=== PATIENT | female | born 1940 | race Caucasian/White ===

== ENCOUNTER 2016-02-27 20:51 | Inpatient (IN) | payer MEDICARE ==
[~2016-02-27] VITALS: Ht 162.6 cm; Wt 53.4 kg
[~2016-02-27 20:51] MED LIST: 3-IN3MIS; ALPR.25 PO; ASPI81CH CHEW; ATOR20TA15 PO; CARV6.252 PO; COUM1TAB PO; DONE10TA7 PO; LEVEMIR SQ; PAXI10TA2 PO; SENN1TAB PO; SITA1TAB2 PO; WALKER ROLLING; WHEEMIS3 XX
[2016-02-27 20:55] VITALS: BP 116/76; PULSE 122; RESP 18; TEMP 97.9; O2SAT 99
[2016-02-27 21:16] VITALS: BP 110/72; PULSE 115; RESP 21; O2SAT 98
[2016-02-27] MEDS ORDERED: SODIUM CHLORIDE 0.9% FLUSH 5 ML FLUSH IVF PRN (21:45)
--- NOTE | 2016-02-27 21:59 | RADRPT ---
EXAM DATE/TIME: 02/27/2016 21:41 [place] COMPARISON: No previous studies available for comparison. INDICATIONS : Short of breath, chest pain MEDICAL HISTORY : None. SURGICAL HISTORY : Right clavicle hardware placement ENCOUNTER: Initial ACUITY: 2 days PAIN SCORE: 3/10 LOCATION: Bilateral chest FINDINGS: Mild interstitial prominence. Tiny left basal effusion. No dense or confluent consolidation. No pneum othorax. There is mild cardiomegaly. CONCLUSION: Mild failure. Ferny Salazar MD on February 27, 2016 at 21:57 Board Certified Radiologist. This report was verified electronically.
[2016-02-27 22:05] LABS: AUTOMATED NEUTROPHIL # 4.4 TH/MM3 (1.8-7.7); BASOPHIL # 0.1 TH/MM3 (0-0.2); BASOPHIL % 1.5 % (0.0-2.0); EOSINOPHIL # 0.1 TH/MM3 (0-0.4); EOSINOPHIL % 1.9 % (0.0-4.0); HEMATOCRIT 23.9 % (35.0-46.0); LYMPH % 24.1 % (9.0-44.0); LYMPHOCYTE # 1.7 TH/MM3 (1.0-4.8); MEAN CELL VOLUME 73.2 FL (80.0-100.0); MEAN CORPUSCULAR HEMOGLOBIN 22.6 PG (27.0-34.0); MEAN CORPUSCULAR HGB CONC 30.8 % (32.0-36.0); MONO % 10.8 % (0.0-8.0); NEUT % 61.7 % (16.0-70.0); PLATELET COUNT 274 TH/MM3 (150-450); RED BLOOD COUNT 3.26 MIL/MM3 (4.00-5.30); RED CELL DISTRIBUTION WIDTH 18.9 % (11.6-17.2); WHITE BLOOD COUNT 7.2 TH/MM3 (4.0-11.0)
[2016-02-27 22:16] LABS: APTT (PATIENT) 27.3 SEC (24.3-30.1); INTERNATIONAL NORMALIZED RATIO 1.6 RATIO; PROTHROMBIN TIME - PATIENT 18.1 SEC (9.8-11.6)
[2016-02-27 22:27] LABS: ANION GAP 8 MEQ/L (5-15); AST (GOT) 34 U/L (15-37); BICARBONATE 23.6 MEQ/L (21.0-32.0); BLOOD UREA NITROGEN 34 MG/DL (7-18); CHLORIDE 103 MEQ/L (98-107); GLOMERULAR FILTRATION RATE 35 ML/MIN (>89); MAGNESIUM 2.3 MG/DL (1.5-2.5); POTASSIUM 4.3 MEQ/L (3.5-5.1); SODIUM (NA) 135 MEQ/L (136-145)
[2016-02-27 22:29] LABS: HEMO FLAGS AUTO DIFF
[2016-02-27 22:32] LABS: ALKALINE PHOSPHATASE 192 U/L (45-117); ALT (GPT) 39 U/L (10-53); TOTAL BILIRUBIN ADULT 0.4 MG/DL (0.2-1.0)
[2016-02-27 22:37] LABS: CREATINE KINASE 57 U/L (26-192)
[2016-02-27 22:43] LABS: ACANTHOCYTES OCC (NORMAL); BANDS 1 % (0-6); CORRECTED NUCLEATED RBC 2 /100 WBC (0-0); EOSINOPHILS 2 % (0-4); KERATOCYTES OCC (NORMAL); NEUTROPHIL # MANUAL DIFF 4.8 TH/MM3 (1.8-7.7); OVALOCYTES 1+ (NORMAL); PLATELET ESTIMATE SMEAR NORMAL (NORMAL); PLATELET MORPHOLOGY NORMAL (NORMAL); POLYS (SEG NEUTROPHILS) 66 % (16-70); SCAN/DIFF FINAL DIFF MANUAL; WBC DIFF SAMPLE 100
[2016-02-27 22:44] LABS: POLYCHROMASIA 2.4 % (0.0-1.9)
[2016-02-27] MEDS ORDERED: CARV3.125 PO (22:58)
[2016-02-27] MEDS ORDERED: GLIM2TAB PO (22:58)
[2016-02-27] MEDS ORDERED: NAME5TAB2 PO (22:58)
[2016-02-27] MEDS ORDERED: FUROSEMIDE 20 MG/2 ML VIAL IV PUSH ONE (23:00)
[2016-02-27] MEDS ORDERED: SODIUM CHLOR 0.9% 250 ML INJ 250 ML IV ONE (23:00)
--- NOTE | 2016-02-27 23:01 | PD ---
HPI Chief Complaint: Cardiac Complaint Time Seen by Provider: 21:00 Travel History International Travel<30 days: No Contact w/Intl Traveler<30days: No Traveled to known affect area: No History of Present Illness HPI Patient is 75 years old. She is a history of atrial fibrillation. She has had CHF in the past. She was taken off Lasix about 2 months prior following a stroke. 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 Additionally she has shortness of breath increasing over the last couple weeks. Shortness of breath at rest is noted now. There has been no cough or fever. Orthopnea is reported. Most of the history is provided by the patient's daughter. Patient follows with Dr. Hernandez of urology. She follows with events administrative assistant at [facility] in [facility]. There has been no blood in the stool of which the patient or the daughter is aware. The doctor the patient to the fire department where a rhythm strip was printed out demonstrating A. fib with RVR at a rate of 150. Evidently the patient typically has a heart rate of about 110-120 at baseline. The patient was then brought to the ER for evaluation. Evidently she is scheduled for a cardiac catheterization within the next few days to be perofmed by Dr Casillas. [facility] Past Medical History Hx Anticoagulant Therapy: Yes Arthritis: No Asthma: No Atrial Fibrillation: Yes Autoimmune Disease: No Anxiety: Yes Depression: No Heart Rhythm Problems: Yes (atrial fibrillation for past couple years) Cancer: No Cardiovascular Problems: Yes (AFIB RVR) High Cholesterol: Yes Chemotherapy: No Chest Pain: No Congestive Heart Failure: Yes COPD: No Diabetes: Yes Endocrine: No GERD: Yes Genitourinary: No Hiatal Hernia: No Immune Disorder: No Kidney Stones: No Musculoskeletal: Yes (fractured pelvis 2014) Neurologic: Yes (aneurysm) Reproductive: No Respiratory: Yes (CHF) Migraines: No Radiation Therapy: No Renal Failure: No Seizures: No Sickle Cell Disease: No Sleep Apnea: No Thyroid Disease: No Ulcer: No : 5 Para: 3 Past Surgical History Abdominal Surgery: No AICD: No Arteriovenous Shunt: No Cardiac Surgery: Yes (CEA, RLE FEMPOP) Ear Surgery: No Endocrine Surgery: No Eye Surgery: Yes (cataracts) Genitourinary Surgery: Yes (renal stent) Gynecologic Surgery: No Insulin Pump: No Joint Replacement: No Neurologic Surgery: Yes (aneurysm repair) Oral Surgery: No Pacemaker: No Thoracic Surgery: No Other Surgery: Yes (fem pop bypass ) Social History Alcohol Use: No (unable to assess) Tobacco Use: No Substance Use: No Allergies-Medications (Allergen,Severity, Reaction): Coded Allergies: Apresoline (Verified Allergy, Mild, itching, 02/27/16) Demerol (Verified Allergy, Unknown, unknown, 02/27/16) Phenergan (Verified Allergy, Unknown, unknown, 02/27/16) Reported Meds & Prescriptions Reported Meds & Active Scripts Active Coumadin (Warfarin) 1 Mg Tab 2 Mg PO DAILY Carvedilol 6.25 Mg Tab 6.25 Mg PO BID Atorvastatin (Atorvastatin Calcium) 20 Mg Tab 20 Mg PO HS Aspirin 81 Mg Chew 81 Mg CHEW DAILY Xanax (Alprazolam) 0.25 Mg Tab 0.25 Mg PO Q8HR PRN Donepezil 10 Mg Tab 10 Mg PO HS Paxil (Paroxetine HCl) 10 Mg Tab 10 Mg PO DAILY Reported Glimepiride 2 Mg Tab 2 Mg PO DAILY Take with breakfast or first main meal Namenda (Memantine) 5 Mg Tab 5 Mg PO BID Coreg (Carvedilol) 3.125 Mg Tab 3.125 Mg PO BID Review of Systems Except as stated in HPI: all other systems reviewed are Neg Physical Exam Narrative GENERAL: 75 yo F, pleasant, mild dementia SKIN: Warm and dry. HEAD: Atraumatic. Normocephalic. EYES: Pupils equal and round. No scleral icterus. No injection or drainage. ENT: No nasal bleeding or discharge. Mucous membranes pink and moist. NECK: Trachea midline. No JVD. CARDIOVASCULAR: Irregular. Tachycardia. RESPIRATORY: Mild tachypnea at rest. Course breath sounds bilaterally. GASTROINTESTINAL: Abdomen soft, non-tender, nondistended. Hepatic and splenic margins not palpable. MUSCULOSKELETAL: Extremities without clubbing, cyanosis, or edema. No obvious deformities. NEUROLOGICAL: Awake and alert. Pleasantly demented. No focal cranial nerve deficits or motor weakness is observed. RECTAL: Rectal vault empty. Guaiac positive mucus. External hemorrhoids present. No fissure or tenderness or mass on exam. PSYCHIATRIC: Appropriate mood and affect; insight and judgment normal. Data Data Last Documented VS Vital Signs Date Time Temp Pulse Resp B/P Pulse Ox O2 Delivery O2 Flow Rate FiO2 02/27/16 21:16 115 21 110/72 98 Nasal Cannula 2 02/27/16 20:55 97.9 Orders Electrocardiogram (02/27/16 ) B-Type Natriuretic Peptide (02/27/16 21:33) Ckmb (Isoenzyme) Profile (02/27/16 21:33) Complete Blood Count With Diff (02/27/16 21:33) Comprehensive Metabolic Panel (02/27/16 21:33) Magnesium (Mg) (02/27/16 21:33) Prothrombin Time / Inr (Pt) (02/27/16 21:33) Act Partial Throm Time (Ptt) (02/27/16 21:33) Troponin I (02/27/16 21:33) Lipase (02/27/16 21:33) Chest, Single Ap (02/27/16 21:33) Ecg Monitoring (02/27/16 21:33) Iv Access Insert/Monitor (02/27/16 21:33) Oximetry (02/27/16 21:33) Oxygen Administration (02/27/16 21:33) Sodium Chloride 0.9% Flush (Ns Flush) (02/27/16 21:45) Type And Screen (02/27/16 22:56) Red Blood Cells (Rbc) (02/27/16 22:56) Blood Product Administration .UPON TRANSFUSION (02/27/16 22:56) Sodium Chlor 0.9% 250 Ml Inj (Ns 250 Ml (02/27/16 23:00) Furosemide Inj (Lasix Inj) (02/27/16 23:00) Admit Order (Ed Use Only) (02/27/16 23:01) Labs Laboratory Tests Test 02/27/16 21:45 White Blood Count 7.2 TH/MM3 Red Blood Count 3.26 MIL/MM3 Hemoglobin 7.4 GM/DL Hematocrit 23.9 % Mean Corpuscular Volume 73.2 FL Mean Corpuscular Hemoglobin 22.6 PG Mean Corpuscular Hemoglobin 30.8 % Concent Red Cell Distribution Width 18.9 % Platelet Count 274 TH/MM3 Mean Platelet Volume 9.9 FL Neutrophils (%) (Auto) 61.7 % Lymphocytes (%) (Auto) 24.1 % Monocytes (%) (Auto) 10.8 % Eosinophils (%) (Auto) 1.9 % Basophils (%) (Auto) 1.5 % Neutrophils # (Auto) 4.4 TH/MM3 Lymphocytes # (Auto) 1.7 TH/MM3 Monocytes # (Auto) 0.8 TH/MM3 Eosinophils # (Auto) 0.1 TH/MM3 Basophils # (Auto) 0.1 TH/MM3 CBC Comment AUTO DIFF Differential Total Cells 100 Counted Neutrophils % (Manual) 66 % Band Neutrophils % 1 % Lymphocytes % 23 % Monocytes % 8 % Eosinophils % 2 % Neutrophils # (Manual) 4.8 TH/MM3 Nucleated Red Blood Cells 2 /100 WBC Differential Comment FINAL DIFF MANUAL Platelet Estimate NORMAL Platelet Morphology Comment NORMAL Polychromasia 2.4 % Ovalocytes 1+ Acanthocytes OCC Keratocytes OCC Reticulocyte Count 2.7 % Absolute Reticulocyte Count 92.8 MIL/L Prothrombin Time 18.1 SEC Prothromb Time International 1.6 RATIO Ratio Activated Partial 27.3 SEC Thromboplast Time Sodium Level 135 MEQ/L Potassium Level 4.3 MEQ/L Chloride Level 103 MEQ/L Carbon Dioxide Level 23.6 MEQ/L Anion Gap 8 MEQ/L Blood Urea Nitrogen 34 MG/DL Creatinine 1.47 MG/DL Estimat Glomerular Filtration 35 ML/MIN Rate Random Glucose 142 MG/DL Calcium Level 8.0 MG/DL Magnesium Level 2.3 MG/DL Total Bilirubin 0.4 MG/DL Aspartate Amino Transf 34 U/L (AST/SGOT) Alanine Aminotransferase 39 U/L (ALT/SGPT) Alkaline Phosphatase 192 U/L Total Creatine Kinase 57 U/L Troponin I 0.02 NG/ML B-Type Natriuretic Peptide 709 PG/ML Total Protein 6.8 GM/DL Albumin 3.5 GM/DL Lipase 153 U/L [facility] Medical Decision Making Medical Screen Exam Complete: Yes Emergency Medical Condition: Yes Medical Record Reviewed: Yes Differential Diagnosis CHF, pneumonia, anemia, renal failure, electrolyte imbalance, UTI, polypharmacy Narrative Course CBC & BMP Diagram 02/27/16 21:45 LFTs are essentially normal The BNP is 709 Lipase 153 Troponin is 0.02 A. fib with a rate of approximately 120 is observed Last 24 hours Impressions Chest X-Ray 02/27/162132 Signed Impressions: Service Date/Time: January 21:41 - CONCLUSION: Mild failure. Ferny Salazar MD Patient will be admitted for transfusion of 1 unit red blood cells. Lasix administered. Patient has a history of chronic hematuria as well as hereto for unknown guaiac positive stool. Case d/w Lissette Erickson for [facility] Internal Pos. & Neg. Controls: Passed Fecal Specimen Occult Blood: Positive Diagnosis Primary Impression: Acute blood loss anemia Additional Impressions: CHF (congestive heart failure) Qualified Code: I50.9 - Acute on chronic congestive heart failure, unspecified congestive heart failure type Dyspnea Qualified Code: R06.00 - Dyspnea, unspecified type Hematuria Guaiac + stool Admitting Information Admitting Physician Requests: Fidel Bernstein MD Feb 27, 2016 23:01
[2016-02-27] MEDS ORDERED: NALOXONE HCL 0.4 MG/ML AMP IV PRN (23:15)
[2016-02-27] MEDS ORDERED: ONDANSETRON HCL 4 MG/2 ML VIAL IVP PRN (23:15)
[2016-02-27] MEDS ORDERED: ACETAMINOPHEN 325 MG TAB PO PRN (23:15)
[2016-02-27] MEDS ORDERED: SODIUM CHLORIDE 0.9% FLUSH 5 ML FLUSH FLUSH PRN (23:15)
[2016-02-27 23:40] VITALS: BP 117/84; PULSE 97; RESP 22; O2SAT 100
[2016-02-27 23:50] VITALS: O2SAT 100
[2016-02-27 23:51] LABS: RETIC % 2.7 % (0.4-3.0)
[2016-02-27 23:52] LABS: REVIEW FLAG FINAL
[2016-02-28] VITALS (9 sets, daily range): BP systolic 111–133; BP diastolic 65–76; PULSE 64–108; RESP 16–22; TEMP 95.9–97.2; O2SAT 99–100
[2016-02-28] MEDS: PANTOPRAZOLE SODIUM 40 MG VIAL IV PUSH SCH ×3 (04:06→23:00)
[2016-02-28] MEDS: SODIUM CHLORIDE 0.9% FLUSH 5 ML FLUSH FLUSH SCH ×2 (07:47→20:36)
[2016-02-28] MEDS: PARoxetine HCL 20 MG TAB PO SCH (07:47)
[2016-02-28] MEDS: CARVEDILOL 3.125 MG TAB PO SCH ×2 (07:47→20:36)
[2016-02-28 09:19] LABS: AUTOMATED NEUTROPHIL # 4.8 TH/MM3 (1.8-7.7); BASOPHIL # 0.1 TH/MM3 (0-0.2); BASOPHIL % 1.6 % (0.0-2.0); EOSINOPHIL # 0.1 TH/MM3 (0-0.4); HEMATOCRIT 35.4 % (35.0-46.0); LYMPH % 20.9 % (9.0-44.0); LYMPHOCYTE # 1.5 TH/MM3 (1.0-4.8); MEAN CELL VOLUME 76.1 FL (80.0-100.0); MEAN CORPUSCULAR HEMOGLOBIN 23.6 PG (27.0-34.0); MONO % 9.5 % (0.0-8.0); PLATELET COUNT 217 TH/MM3 (150-450); RED BLOOD COUNT 4.65 MIL/MM3 (4.00-5.30); RED CELL DISTRIBUTION WIDTH 19.3 % (11.6-17.2); WHITE BLOOD COUNT 7.3 TH/MM3 (4.0-11.0)
[2016-02-28 09:30] LABS: INTERNATIONAL NORMALIZED RATIO 1.5 RATIO; PROTHROMBIN TIME - PATIENT 16.9 SEC (9.8-11.6)
[2016-02-28 09:49] LABS: ANION GAP 12 MEQ/L (5-15); BICARBONATE 21.5 MEQ/L (21.0-32.0); BLOOD UREA NITROGEN 30 MG/DL (7-18); CHLORIDE 104 MEQ/L (98-107); FERRITIN 6 NG/ML (8-252); GLOMERULAR FILTRATION RATE 37 ML/MIN (>89); POTASSIUM 4.2 MEQ/L (3.5-5.1); SODIUM (NA) 137 MEQ/L (136-145); TRANSFERRIN IRON PROFILE 378 MG/DL (200-360)
[2016-02-28 10:06] LABS: HEMO FLAGS AUTO DIFF
[2016-02-28 10:08] LABS: PLATELET ESTIMATE SMEAR NORMAL (NORMAL); PLATELET MORPHOLOGY ENLARGED (NORMAL); SCAN/DIFF AUTO DIFF CONFIRMED
[2016-02-28] MEDS ORDERED: GLUCAGON 1 MG/ML VIAL OTHER PRN (11:00)
[2016-02-28] MEDS: INSULIN NovoLIN REGULAR SUPPLEMENTAL SCALE SQ SCH ×3 (11:00→20:42)
[2016-02-28] MEDS ORDERED: DEXTROSE 50% IN WATER 50 ML VIAL(D50) IV PUSH PRN (11:00)
--- NOTE | 2016-02-28 11:27 | MH ---
cc: WILMA VALVERDE DATE OF ADMISSION 02/27/2016 PRESENTING COMPLAINTS Atrial fibrillation with rapid ventricular rate and shortness of breath. HISTORY OF PRESENT ILLNESS The patient is a very pleasant 75-year-old female with significant past medical history of CVA in 2007 without deficit, brain aneurysm in 2010 status post coiling, hypertension, hyperlipidemia, diabetes type 2, peripheral vascular disease, status post surgery, paroxysmal atrial fibrillation, depression, hyperlipidemia, renal stents. The patient was admitted recently in November of 2015 at [facility] for recurrent stroke and was found to have an any acute ischemic right MCA stroke. Following this, the patient had significant cognitive difficulties and she was discharged to [facility]. About two weeks ago, the patient started complaining of shortness of breath, however, the daughter usually thought it was because the patient wants to be out of her HALFWAY. However, two days ago, the patient seemed to have significant shortness of breath. The daughter checked her heart rate yesterday and found it to be in the 140's. She took her to a fire station and verified the heart rate to be more than 140 and brought her to the emergency room. In the emergency room, her heart rate was found to be 140. She was admitted for further workup. Also found in the emergency room was a hemoglobin of 7.2 with stool hemoccult positive stool test. The patient was admitted for further workup. At this point, the patient is complaining of shortness of breath and otherwise denies any significant complaint. She admits to having poor memory and not able to recall information. Most of the history is obtained from the patient's Jose Alberto Raza who also works at [facility]. PAST MEDICAL HISTORY Significant for: 1. Hypertension 2. Hyperlipidemia 3. Atrial fibrillation 4. Anxiety 5. Heart rhythm problems 6. Multiple strokes in the past 7. Peripheral vascular disease 8. Hyperlipidemia 9. Questionable history of congestive heart failure. Echocardiogram in November of 2012 showed an EF of 55-60%. 10. History of diabetes. 11. History gastroesophageal reflux disease. 12. History of brain aneurysm status post clipping. PAST SURGICAL HISTORY Significant for: 1. Carotid endarterectomy 2. Right lower extremity fem-pop surgery 3. Cataract surgery in both eyes 4. Renal stent 5. Aneurysm repair in neurology. FAMILY HISTORY AND SOCIAL HISTORY The patient as above used to be independent until November however, after experiencing stroke in November, she was admitted to an independent living facility at [facility]. She has a daughter in the area works in the medical field. She also has most of her family in [place] and they are all in medical gr. PHYSICAL EXAM VITAL SIGNS: Temperature of 95.9, pulse 91, respiratory rate 20 systolic blood pressure was 113/68 and she is sating 100% on three liters nasal cannula. GENERAL: She is awake, alert, and oriented to person and place laying in bed. She does not appear to be in any acute distress but does appear very frail. HEAD, EYES, EARS, NOSE, AND THROAT: The patient has trouble speaking, kind of has some hesitancy in speaking. Pupils are round and reactive. Extraocular movement intact. No conjunctival injection was noted. The patient does appear pale. Oral mucosa is moist. NECK: Supple and nontender. No JVD. CARDIOVASCULAR: Cardiovascular examination S1-S2 irregularly irregular without gallop, murmurs or rubs appreciated. RESPIRATORY: Bilateral air entry clear to auscultation. No rales, wheezes or rhonchi were appreciated. GI: Positive bowel sounds, soft, nontender. EXTREMITIES: Have no cyanosis, clubbing or edema. PERTINENT LAB INVESTIGATIONS Show a WBC count of 7.3, hemoglobin 11.20, now on admission was 7.4, hematocrit 35.4, platelet count of 117. Chemistries show sodium 137, potassium 4.2, chloride 104, bicarb 31.5, BUN 30, creatinine of 1.40, glucose 136, iron count is low at 35, TIBC 529, ferritin is low at 6, AST 34, ALT 39, alkaline phosphatase 192, total creatinine kinase 57. Troponin I is 0.02. BNP 702, total protein 6.8, albumen 3.7, lipase 153. Vitamin B12 levels are pending. INR of 1.6 on admission now 2.5. RADIOLOGICAL INVESTIGATIONS Included a chest x-ray which showed evidence of mild pulmonary edema. DIAGNOSTIC IMPRESSION 1. Shortness of breath likely secondary to a combination of atrial fibrillation with rapid ventricular rate and anemia. 2. Atrial fibrillation with rapid ventricular rate. 3. Anemia possibly rule out GI bleed. 4. History of recent strokes with severe cognitive deficits and memory loss. 5. History of hypertension and hyperlipidemia. 6. History of diabetes. PLAN 1. The patient is admitted to the floor. She was prescribed Coumadin since her stroke, however, at this point, it is discontinued. The patient is getting clear liquid diet. She will be seen by GI. She is on IV PPI. We will check H&H q6h as needed/transfusions to keep hemoglobin more than 8. 2. I had discussed with the patient's daughter in detail. We will hold Coumadin and undergo a GI workup. Iron studies show low iron and increased TIBC probably will need iron replacement therapy. 3. Mild pulmonary edema on admission. She will receive Lasix 20 mg IV in the emergency room. Now clear to auscultation. We will hold of any further Lasix. 4. The patient had a recent echocardiogram at office less than two weeks. We will try to get a report from there. 5. Continue with Accu-Chek's and insulin sliding scale. 6. DVT prophylaxis 7. GI prophylaxis 8. Resume home medications as appropriate. 9. The plan discussed in detail with the patient and her daughter. MD SONIA Kahn/JUANJOSE /10:43 AM /11:03 AM
--- NOTE | 2016-02-28 11:41 | PD.CONS ---
HPI History of Present Illness This is a 75 year old who was brought to the ER for evaluation of shortness of breath and found to have atrial fibrillation with RVR. She was also noted to have anemia with hemoccult positive stool and therefore admitted for further evaluation and treatment. The patient has not noticed any obvious GI bleeding, although she reports that she has been having intermittent vaginal bleeding for the past 2 years. There are no aggravating or alleviating factors. She states she wears briefs and notices when she takes them off that there is a ring of vaginal blood at times. She does not have any abdominal pain with this. She states she recently mentioned this to her PCP and that he was going to look into it, but she has not had any workup or been seen by [facility] yet. She denies any hx of PUD or GI Bleeding. She denies any nausea, vomiting, heartburn, reflux, weight loss, constipation, diarrhea, melena, or hematochezia. She takes an occasional ibuprofen for generalized aches/pains, but does not take this on a regular basis. She does not drink ETOH. She states she last had a colonoscopy many years ago and she cannot recall when this last was. She denies any known family hx of esophageal, gastric or colorectal cancer. ([place]) PFSH Past Medical History CVA Bilateral renal artery stenosis, s/p stenting left side Type II DM HTN Hyperlipidemia Hyperlipidemia Atrial fibrillation Anxiety Peripheral vascular disease ? CHF GERD Hx brain aneurysm Intermittent vaginal bleeding x 2 years Past Surgical History Stenting for left renal artery stenosis Bilateral carotid endarterectomies Brain aneurysm clipping Cataract surgery ([place]) Coded Allergies: Apresoline (Verified Allergy, Mild, itching, 02/27/16) Demerol (Verified Allergy, Unknown, unknown, 02/27/16) Phenergan (Verified Allergy, Unknown, unknown, 02/27/16) Medications Allergies Coded Allergies Type Severity Reaction Last Updated Verified Apresoline Allergy Mild itching 02/27/16 Yes Demerol Allergy Unknown unknown 02/27/16 Yes Phenergan Allergy Unknown unknown 02/27/16 Yes Active Scripts Medications Dose Route/Sig Days Date Category Dose Instructions Glimepiride 2 Mg Tab 2 Mg PO DAILY 02/27/16 Reported Take with breakfast or first main meal Namenda (Memantine) 5 Mg Tab 5 Mg PO BID 02/27/16 Reported Coreg (Carvedilol) 3.125 Mg Tab 3.125 Mg PO BID 02/27/16 Reported Coumadin (Warfarin) 1 Mg Tab 2 Mg PO DAILY 12/30/15 Rx Carvedilol 6.25 Mg Tab 6.25 Mg PO BID 12/30/15 Rx Atorvastatin (Atorvastatin Calcium) 20 Mg Tab 20 Mg PO HS 12/30/15 Rx Aspirin 81 Mg Chew 81 Mg CHEW DAILY 12/30/15 Rx Xanax (Alprazolam) 0.25 Mg Tab 0.25 Mg PO Q8HR PRN 12/30/15 Rx Donepezil 10 Mg Tab 10 Mg PO HS 12/30/15 Rx Paxil (Paroxetine HCl) 10 Mg Tab 10 Mg PO DAILY 12/30/15 Rx Family History Denies any family hx of gastric, esophageal, or colorectal cancer. Social History No tobacco. No ETOH. ([place]) Review of Systems Constitutional: COMPLAINS OF: Fatigue, DENIES: Fever, Chills, Change in appetite Respiratory: COMPLAINS OF: Shortness of breath, DENIES: Cough Cardiovascular: COMPLAINS OF: Palpitations, DENIES: Chest pain Gastrointestinal: DENIES: Abdominal pain, Black stools, Bloody stools, Constipation, Diarrhea, Nausea, Vomiting, Anorexia, Swelling of Abdomen, Heartburn, Hematemesis Musculoskeletal: COMPLAINS OF: Joint pain Integumentary: DENIES: Abnormal pigmentation Hematologic/lymphatic: COMPLAINS OF: Bruising Neurologic: DENIES: Abnormal gait Psychiatric: DENIES: Confusion ([place]) GI Exam Vitals I&O Vital Signs Date Time Temp Pulse Resp B/P Pulse Ox O2 Delivery O2 Flow Rate FiO2 02/28/16 08:47 91 02/28/16 08:00 95.9 91 20 113/68 100 02/28/16 04:20 96.0 99 16 121/73 99 02/28/16 04:15 96.0 96 16 131/71 100 02/28/16 00:50 97.2 108 22 130/76 99 02/27/16 23:50 100 Nasal Cannula 3.00 02/27/16 23:40 97 22 117/84 100 Nasal Cannula 3 02/27/16 21:16 115 21 110/72 98 Nasal Cannula 2 02/27/16 21:16 122 24 96 Nasal Cannula 3 02/27/16 21:16 98 Nasal Cannula 3 02/27/16 20:55 97.9 122 18 116/76 99 Room Air I/O 02/27/16 02/27/16 02/27/16 02/28/16 02/28/16 02/28/16 07:00 15:00 23:00 07:00 15:00 23:00 Intake Total 447 ml Balance 447 ml Intake Oral 240 ml Packed Cells 207 ml # Voids 6 1 Imaging Last Impressions Chest X-Ray 02/27/163 Signed Impressions: Service Date/Time: January 21:41 - CONCLUSION: Mild failure. Ferny Salazar MD Laboratory Test 02/27/16 02/27/16 02/28/16 21:45 23:20 09:10 White Blood Count 7.2 TH/MM3 7.3 TH/MM3 Red Blood Count 3.26 MIL/MM3 4.65 MIL/MM3 Hemoglobin 7.4 GM/DL 11.0 GM/DL Hematocrit 23.9 % 35.4 % Mean Corpuscular Volume 73.2 FL 76.1 FL Mean Corpuscular Hemoglobin 22.6 PG 23.6 PG Mean Corpuscular Hemoglobin 30.8 % 31.0 % Concent Red Cell Distribution Width 18.9 % 19.3 % Platelet Count 274 TH/MM3 217 TH/MM3 Mean Platelet Volume 9.9 FL 9.8 FL Neutrophils (%) (Auto) 61.7 % 66.0 % Lymphocytes (%) (Auto) 24.1 % 20.9 % Monocytes (%) (Auto) 10.8 % 9.5 % Eosinophils (%) (Auto) 1.9 % 2.0 % Basophils (%) (Auto) 1.5 % 1.6 % Neutrophils # (Auto) 4.4 TH/MM3 4.8 TH/MM3 Lymphocytes # (Auto) 1.7 TH/MM3 1.5 TH/MM3 Monocytes # (Auto) 0.8 TH/MM3 0.7 TH/MM3 Eosinophils # (Auto) 0.1 TH/MM3 0.1 TH/MM3 Basophils # (Auto) 0.1 TH/MM3 0.1 TH/MM3 CBC Comment AUTO DIFF AUTO DIFF Differential Total Cells 100 Counted Neutrophils % (Manual) 66 % Band Neutrophils % 1 % Lymphocytes % 23 % Monocytes % 8 % Eosinophils % 2 % Neutrophils # (Manual) 4.8 TH/MM3 Nucleated Red Blood Cells 2 /100 WBC Differential Comment FINAL DIFF AUTO DIFF MANUAL CONFIRMED Platelet Estimate NORMAL NORMAL Platelet Morphology Comment NORMAL ENLARGED Polychromasia 2.4 % Ovalocytes 1+ Acanthocytes OCC Keratocytes OCC Reticulocyte Count 2.7 % Absolute Reticulocyte Count 92.8 MIL/L Prothrombin Time 18.1 SEC 16.9 SEC Prothromb Time International 1.6 RATIO 1.5 RATIO Ratio Activated Partial 27.3 SEC Thromboplast Time Sodium Level 135 MEQ/L 137 MEQ/L Potassium Level 4.3 MEQ/L 4.2 MEQ/L Chloride Level 103 MEQ/L 104 MEQ/L Carbon Dioxide Level 23.6 MEQ/L 21.5 MEQ/L Anion Gap 8 MEQ/L 12 MEQ/L Blood Urea Nitrogen 34 MG/DL 30 MG/DL Creatinine 1.47 MG/DL 1.40 MG/DL Estimat Glomerular Filtration 35 ML/MIN 37 ML/MIN Rate Random Glucose 142 MG/DL 136 MG/DL Calcium Level 8.0 MG/DL 8.0 MG/DL Magnesium Level 2.3 MG/DL Total Bilirubin 0.4 MG/DL Aspartate Amino Transf 34 U/L (AST/SGOT) Alanine Aminotransferase 39 U/L (ALT/SGPT) Alkaline Phosphatase 192 U/L Total Creatine Kinase 57 U/L Troponin I 0.02 NG/ML B-Type Natriuretic Peptide 709 PG/ML Total Protein 6.8 GM/DL Albumin 3.5 GM/DL Lipase 153 U/L Blood Type O POSITIVE Antibody Screen NEGATIVE Crossmatch Leukocyte-Reduced Red Blood Cells Blood Bank Comment Iron Level 35 MCG/DL Total Iron Binding Capacity 529 MCG/DL Percent Iron Saturation 6.6 % Ferritin 6 NG/ML Physical Examination HEENT: Normocephalic; atraumatic; no jaundice. CHEST: CTA CARDIAC: Irregular. ABDOMEN: Soft, nondistended, nontender; no hepatosplenomegaly; bowel sounds are present in all four quadrants. EXTREMITIES: No clubbing, cyanosis, or edema. SKIN: Normal; no rash; no jaundice. TORPEDOMAN'S MATE: No focal deficits; alert and oriented times three. ([place]) Assessment and Plan Plan ASSESSMENT: - Anemia with hemoccult positive stool. H/H 7.4/23.9 on admission. S/P 2 units of PRBC, now HH 11.0/25.4. Hemoccult (+). Pt denies any GI symptoms or bleeding but does report intermittent vaginal bleeding x 2 years. Of note, she is on Coumadin at home. Her INR is 1.5. This is currently being held in anticipation of GI workup. Will get CT Scan abdomen and pelvis without IV contrast (impaired renal function). Consider [facility] evaluation. Possible EGD/ Colonoscopy next week. - Reported vaginal bleeding. Will get CT scan. ? [facility] evaluation. - Atrial fibrillation with RVR. Rate controlled. Coumadin on hold at this time. - Recent CVA, HTN, Hyperlipidemia, DM per primary PLAN: - Clear liquids - CT Scan abdomen and pelvis without IV contrast - PPI - Monitor HH - Transfuse as necessary - Consider [facility] evaluation - EGD/Colonoscopy next week. If patient needs anticoagulation prior to procedures, recommend lovenox for now, so that it may be held prior to procedure. - Supportive care - Further recommendations to follow based on results of above - Pt seen and examined by Dr. Tracy and myself and this note is written on his behalf ([place]) Physician Comments Seen and examined, plan as above, continue work up and will need endoscopic evaluation once cleared. Will follow up with you. (Belinda Tracy MD) [place] Feb 28, 2016 11:41 Belinda Tracy MD Feb 28, 2016 13:55
[2016-02-28] MEDS ORDERED: DIATRIZOATE MEGLUM/DIATRIZOATE SOD 9 ML CUP PO ONE (12:45)
--- NOTE | 2016-02-28 13:46 | EKG ---
Date Performed: 02/27/2016 Time Performed: 21:26:40 PTAGE: 75 years EKG: ATRIAL FIBRILLATION WITH RAPID VENTRICULAR RESPONSE ST DEVIATION AND MODERATE T-WAVE ABNORM ALITY, CONSIDER LATERAL ISCHEMIA ABNORMAL ECG Since PREVIOUS TRACING , no significant change noted PREVIOUS TRACIN12/11/2015 03.49 DOCTOR: Cristobal Whitfield Interpretating Date/Time 02/28/2016 13:36:12
--- NOTE | 2016-02-28 17:37 | RADRPT ---
EXAM DATE/TIME: 02/28/2016 17:20 [facility] COMPARISON: CHEST SINGLE AP, February 27, 2016, 21:41. INDICATIONS : Diffuse abdominal pain with vaginal bleeding and anemia. ORAL CONTRAST: Prescribed oral contrast ingested. RADIATION DOSE: 7.21 CTDIvol (mGy) MEDICAL HISTORY : Cerebrovascular disease. SURGICAL HISTORY : None. ENCOUNTER: Initial ACUITY: 2 days PAIN SCALE: 5/10 LOCATION: Diffuse abdomen/pelvis TECHNIQUE: Volumetric scanning of the abdomen and pelvis was performed. Using automated exposure control and adjustment of the mA and/or kV according to patient size, radiation dose was kept as low as reasonably achievable to obtain optimal diagnostic quality images. FINDINGS: LOWER LUNGS: The visualized lower lungs are clear. Moderate to large posterior layering pleural e ffusions LIVER: Homogeneous density without lesion. There is no dilation of the biliary tree. No calcifi ed gallstones. Gallbladder seen as a luminal structure without wall thickening or stones. SPLEEN: Normal size without lesion. PANCREAS: Within normal limits. KIDNEYS: Normal in size and shape. There is no mass or stone.. There is hydronephrosis and hydro ureter on the left to the UV junction in the bladder reveals inhomogeneous soft tissue density adjace nt to the wall and mixed with urine vascular bladder tumor not excludable. ADRENAL GLANDS: Within normal limits. VASCULAR: There is no aortic aneurysm. Left renal artery stent in place as well as right femoral artery stent or bypass graft BOWEL/MESENTERY: The stomach, small bowel, and colon demonstrate no acute abnormality. There is no free intraperitoneal air or fluid. The uncomplicated diverticuli of the sigmoid colon ABDOMINAL WALL: Within normal limits. RETROPERITONEUM: There is no lymphadenopathy. BLADDER: No wall thickening or mass. REPRODUCTIVE: Within normal limits. INGUINAL: There is no lymphadenopathy or hernia. MUSCULOSKELETAL: Bilateral spondylolysis L5 with a grade 1 spondylolysis L5 on S1. Degenerative c hanges lumbar spine.. CONCLUSION: Abnormal urinary bladder with soft tissue densities dispersed against the wall which may represent tumor particularly in view that there is left hydroureter and hydronephrosis to the UV junction indicating obstruction. Moderate sized bilateral posterior layering pleural effusio ns. Uncomplicated diverticuli of the sigmoid colon and degenera tive findings the lumbar spine as described above. Chriss Maradiaga MD on February 28, 2016 at 17:29 Board Certified Radiologist. This report was verified electronically.
[2016-02-28] MEDS: ATORVASTATIN 20 MG TAB PO SCH (20:36)
[2016-02-28] MEDS: DONEPEZIL HCL 5 MG TAB PO SCH (20:36)
[2016-02-29] VITALS (13 sets, daily range): BP systolic 113–155; BP diastolic 58–87; PULSE 74–123; RESP 16–20; TEMP 96.5–98; O2SAT 92–99
[2016-02-29] MEDS: INSULIN NovoLIN REGULAR SUPPLEMENTAL SCALE SQ SCH ×4 (05:24→20:10)
[2016-02-29 06:41] LABS: AUTOMATED NEUTROPHIL # 5.6 TH/MM3 (1.8-7.7); BASOPHIL # 0.1 TH/MM3 (0-0.2); BASOPHIL % 0.8 % (0.0-2.0); EOSINOPHIL # 0.2 TH/MM3 (0-0.4); HEMATOCRIT 28.3 % (35.0-46.0); LYMPH % 13.8 % (9.0-44.0); MEAN CELL VOLUME 73.7 FL (80.0-100.0); MEAN CORPUSCULAR HEMOGLOBIN 23.3 PG (27.0-34.0); MEAN CORPUSCULAR HGB CONC 31.7 % (32.0-36.0); NEUT % 74.4 % (16.0-70.0); PLATELET COUNT 230 TH/MM3 (150-450); RED BLOOD COUNT 3.83 MIL/MM3 (4.00-5.30); RED CELL DISTRIBUTION WIDTH 19.7 % (11.6-17.2); WHITE BLOOD COUNT 7.5 TH/MM3 (4.0-11.0)
[2016-02-29 06:53] LABS: HEMO FLAGS AUTO DIFF
[2016-02-29 07:02] LABS: BICARBONATE 24.4 MEQ/L (21.0-32.0); POTASSIUM 3.8 MEQ/L (3.5-5.1)
[2016-02-29 07:18] LABS: PROTHROMBIN TIME - PATIENT 22.2 SEC (9.8-11.6)
[2016-02-29] MEDS: SODIUM CHLORIDE 0.9% FLUSH 5 ML FLUSH FLUSH SCH ×2 (08:55→20:08)
[2016-02-29] MEDS: PARoxetine HCL 20 MG TAB PO SCH (08:55)
[2016-02-29] MEDS: CARVEDILOL 3.125 MG TAB PO SCH (08:55)
[2016-02-29 10:02] LABS: OVALOCYTES 1+ (NORMAL); SCAN/DIFF AUTO DIFF CONFIRMED
--- NOTE | 2016-02-29 10:07 | HHI.GIFU ---
Subjective Remarks no specific symptoms but with further questioning, she does have hematuria and frequency. Objective Vitals I&O Vital Signs Date Time Temp Pulse Resp B/P Pulse Ox O2 Delivery O2 Flow Rate FiO2 02/29/16 07:05 96.6 96 18 155/66 95 02/29/16 04:00 96.5 86 16 113/75 97 02/29/16 00:00 96.6 74 16 123/58 97 02/28/16 20:00 96.9 64 16 133/66 100 02/28/16 18:37 Nasal Cannula 4.00 02/28/16 17:15 Simple Mask 4.00 02/28/16 16:10 Nasal Cannula 4.00 02/28/16 16:00 96.1 80 20 111/73 99 02/28/16 11:41 96.8 86 20 121/65 100 02/28/16 11:36 96.8 86 20 121/65 100 I/O 02/28/16 02/28/16 02/28/16 02/29/16 02/29/16 02/29/16 07:00 15:00 23:00 07:00 15:00 23:00 Intake Total 447 ml 946 ml 240 ml 240 ml Output Total 600 ml Balance 447 ml 346 ml 240 ml 240 ml Intake Oral 240 ml 946 ml 240 ml 240 ml Packed Cells 207 ml Output Urine Total 600 ml # Voids 6 6 2 2 # Bowel Movements 1 0 0 Laboratory Laboratory Tests Test 02/29/16 06:00 White Blood Count 7.5 Red Blood Count 3.83 Hemoglobin 8.9 Hematocrit 28.3 Mean Corpuscular Volume 73.7 Mean Corpuscular Hemoglobin 23.3 Mean Corpuscular Hemoglobin 31.7 Concent Red Cell Distribution Width 19.7 Platelet Count 230 Mean Platelet Volume 9.8 Neutrophils (%) (Auto) 74.4 Lymphocytes (%) (Auto) 13.8 Monocytes (%) (Auto) 9.0 Eosinophils (%) (Auto) 2.0 Basophils (%) (Auto) 0.8 Neutrophils # (Auto) 5.6 Lymphocytes # (Auto) 1.0 Monocytes # (Auto) 0.7 Eosinophils # (Auto) 0.2 Basophils # (Auto) 0.1 CBC Comment AUTO DIFF Prothrombin Time 22.2 Prothromb Time International 2.0 Ratio Sodium Level 140 Potassium Level 3.8 Chloride Level 105 Carbon Dioxide Level 24.4 Anion Gap 11 Blood Urea Nitrogen 21 Creatinine 1.23 Estimat Glomerular Filtration 43 Rate Random Glucose 86 Calcium Level 8.3 Physical Exam HEENT: Pupils round and reactive to light; normocephalic; atraumatic; no jaundice. Throat is clear. NECK: Neck is supple, no JVD, no lymphadenopathy. CHEST: Chest is clear to auscultation and percussion. CARDIAC: Regular rate and rhythm with no murmur gallop or rubs. ABDOMEN: Soft, nondistended, nontender; no hepatosplenomegaly; bowel sounds are present in all four quadrants. EXTREMITIES: No clubbing, cyanosis, or edema. SKIN: Normal; no rash; no jaundice. Assessment and Plan Plan ASSESSMENT: - Anemia with hemoccult positive stool. H/H 7.4/23.9 on admission. S/P 2 units of PRBC, now HH 11.0/25.4. Hemoccult (+). Pt denies any GI symptoms or bleeding but does report intermittent vaginal bleeding x 2 years. Of note, she is on Coumadin at home. Her INR is 1.5. This is currently being held in anticipation of GI workup. Possible EGD/Colonoscopy next week. - Reported vaginal bleeding, hematuria and frequency. ? GEOPHYSICAL LABORATORY CHIEF / urology evaluation. - Atrial fibrillation with RVR. Rate controlled. Coumadin on hold at this time. - Recent CVA, HTN, Hyperlipidemia, DM per primary PLAN: - LITZY for now - PPI - Monitor HH - Transfuse as necessary - Consider GEOPHYSICAL LABORATORY CHIEF/ Urology evaluation for abnormal CT and vaginal bleeding and hematuria - EGD/Colonoscopy next week, after completion of genitourinary evaluation - Recommend lovenox if anticoagulation needed. - Supportive care - Further recommendations to follow based on results of above Belinda Tracy MD Feb 29, 2016 10:06
--- NOTE | 2016-02-29 11:03 | HHI.PR ---
Subjective History of Present Illness Pleasant but forgetful elderly female I am okay Denies chest pain Breathing is okay Heart rate fluctuating between 90s to 110s No cough or sputum production No fever or chills No nausea or vomiting Offers no complaints Vitals/Results Intake & Output 02/28/16 02/28/16 02/29/16 14:59 22:59 06:59 Intake Total 1186 ml 240 ml Output Total 600 ml Balance 586 ml 240 ml Intake Oral 1186 ml 240 ml Output Urine Total 600 ml # Voids 1 7 2 # Bowel Movements 1 0 Vital Signs Vital Signs Date Time Temp Pulse Resp B/P Pulse Ox O2 Delivery O2 Flow Rate FiO2 02/29/16 07:05 96.6 96 18 155/66 95 02/29/16 04:00 96.5 86 16 113/75 97 02/29/16 00:00 96.6 74 16 123/58 97 02/28/16 20:00 96.9 64 16 133/66 100 02/28/16 18:37 Nasal Cannula 4.00 02/28/16 17:15 Simple Mask 4.00 02/28/16 16:10 Nasal Cannula 4.00 02/28/16 16:00 96.1 80 20 111/73 99 02/28/16 11:41 96.8 86 20 121/65 100 02/28/16 11:36 96.8 86 20 121/65 100 CBC/BMP: 02/29/16 0600 02/29/16 0600 Lab Results Laboratory Tests Test 02/29/16 06:00 White Blood Count 7.5 TH/MM3 Red Blood Count 3.83 MIL/MM3 Hemoglobin 8.9 GM/DL Hematocrit 28.3 % Mean Corpuscular Volume 73.7 FL Mean Corpuscular Hemoglobin 23.3 PG Mean Corpuscular Hemoglobin 31.7 % Concent Red Cell Distribution Width 19.7 % Platelet Count 230 TH/MM3 Mean Platelet Volume 9.8 FL Neutrophils (%) (Auto) 74.4 % Lymphocytes (%) (Auto) 13.8 % Monocytes (%) (Auto) 9.0 % Eosinophils (%) (Auto) 2.0 % Basophils (%) (Auto) 0.8 % Neutrophils # (Auto) 5.6 TH/MM3 Lymphocytes # (Auto) 1.0 TH/MM3 Monocytes # (Auto) 0.7 TH/MM3 Eosinophils # (Auto) 0.2 TH/MM3 Basophils # (Auto) 0.1 TH/MM3 CBC Comment AUTO DIFF Differential Comment AUTO DIFF CONFIRMED Ovalocytes 1+ Prothrombin Time 22.2 SEC Prothromb Time International 2.0 RATIO Ratio Sodium Level 140 MEQ/L Potassium Level 3.8 MEQ/L Chloride Level 105 MEQ/L Carbon Dioxide Level 24.4 MEQ/L Anion Gap 11 MEQ/L Blood Urea Nitrogen 21 MG/DL Creatinine 1.23 MG/DL Estimat Glomerular Filtration 43 ML/MIN Rate Random Glucose 86 MG/DL Calcium Level 8.3 MG/DL Physical Exam General General Appearance: No Acute Distress, Comfortable Appearance Remarks Elderly frail female Ears & Nose Ears & Nose Exam: Nasal Mucosa [place] Throat Throat Exam: Oral Mucosa [place] & Moist Neck Neck Exam: Neck Supple, Trachea Midline Pulmonary Resp Exam: Clear Bilaterally, Breath Sounds Equal Cardiology CV Remarks Is irregularly irregular rhythm Gastrointestinal/Abdomen GI Exam: Soft, Non-Tender, Bowel Sounds Present Integumentary Skin Exam: Warm, Dry Neurologic Neuro Exam: Alert, Awake, Speech Clear, Moving All Extremities Neuro Remarks Forgetful PUD Prophylasis PUD Prophylaxis: Protonix Assessment/Plan Assessment/Plan DIAGNOSTIC IMPRESSION . Shortness of breath likely secondary to a combination of atrial fibrillation with rapid ventricular rate and Anemia. . Atrial fibrillation with rapid ventricular rate. . Anemia possibly rule out GI bleed. . History of recent strokes with severe cognitive deficits and memory loss. . Hx of Intracranial Aneurysm s/p Coiling . History of hypertension . hyperlipidemia. . History of diabetes. . Hx MONTEZ s/p stenting . Hx PAD Plan IV fluids Status post PRBC transfusion follow-up H&H Continue PPI GI input appreciated CT abdomen noted Increase carvedilol to 6.25 twice a day for rate control Hold Coumadin, INR 2 today, no sign of active bleeding, however if she started bleeding actively , will reverse coagulopathy with vitamin K and FFP Will obtain urology consultation for bladder mass in left hydro-nephrosis Continue statin Continue Aricept I called and spoke with patient's daughter arline, she is an RN, discussed finding with her She informed me that patient had multiple cystic lesion in her bladder and she was following with Dr. garcia , she was supposed to have what sounds like TURBT, it was not done due to a stroke & need for coagulation A.m. labs Follow Addendum Adenike was called pt was hypoxemic stat chest x-ray/BNP/EKG was done Lasix was given Patient was transferred to [facility] Went back to see her about 4 PM EKG /chest x-ray reviewed BNP noted In the sitting up in chair/feeling well Her daughter was at bedside Cardiology services consult Continue supportive care Julianne Harrington MD Feb 29, 2016 11:03
[2016-02-29] MEDS: PANTOPRAZOLE SODIUM 40 MG VIAL IV PUSH SCH ×2 (11:20→21:43)
[2016-02-29] MEDS ORDERED: FUROSEMIDE 20 MG/2 ML VIAL IV PUSH ONE (12:30)
--- NOTE | 2016-02-29 13:12 | RADRPT ---
EXAM DATE/TIME: 02/29/2016 12:27 [facility] COMPARISON: CHEST SINGLE AP, February 27, 2016, 21:41. INDICATIONS : Shortness of breath. MEDICAL HISTORY : None. SURGICAL HISTORY : Right clavicle hardware placement. ENCOUNTER: Initial ACUITY: 1 day PAIN SCORE: 1/10 LOCATION: Bilateral chest FINDINGS: Plate and screw fixation of the right clavicle. Bilateral effusions and basilar consolidation. Cardio megaly. Aortic calcification. CONCLUSION: Bilateral effusions and basilar consolidation are identified. Dave Campbell MD on February 29, 2016 at 13:10 Board Certified Radiologist. This report was verified electronically.
[2016-02-29 16:31] LABS: HEMATOCRIT 40.8 % (35.0-46.0); REVIEW FLAG FINAL
--- NOTE | 2016-02-29 18:54 | MB ---
cc: JUSTIN STEELE,VIC YEE,RENATO Turpin M.D. DATE OF CONSULTATION 02/29/16 REASON FOR CONSULTATION Atrial fibrillation with rapid ventricular response. HISTORY OF PRESENT ILLNESS 75-year-old white female with multiple medical problems including paroxysmal atrial fibrillation and strokes in the past who was admitted with progressive shortness of breath and found to be in atrial fibrillation with rapid ventricular response in the emergency room. She was also found to have a hemoglobin of 7.2 with heme positive stools. The patient was apparently on Coumadin and aspirin at home for her history of recurrent strokes. Currently, the patient complains of shortness of breath even at rest. She is status post transfusion and her hemoglobin increased to 11. She apparently has been noticing some vaginal bleeding and is undergoing workup for that. PAST MEDICAL HISTORY Hypertension, hyperlipidemia, paroxysmal atrial fibrillation, anxiety, multiple strokes in the past, peripheral arterial disease, hyperlipidemia, diabetes, gastroesophageal reflux disease, history of brain aneurysm status post clipping. PAST SURGICAL HISTORY Carotid endarterectomy, right lower extremity fem-pop bypass, bilateral cataract surgery, renal stent. SOCIAL HISTORY No smoking or drinking. The patient is currently in an assisted living facility. PHYSICAL EXAMINATION GENERAL: She is in no acute distress. VITAL SIGNS: Her blood pressure is 142/70 mmHg, heart rate ranging from 96-110 beats per minute. She is a febrile. HEENT: Head and neck unremarkable without JVD or carotid bruits. LUNGS: Clear to auscultation. HEART: With irregular irregular rhythm. ABDOMEN: Benign without visceromegaly or bruits. EXTREMITIES: Without edema. MEDICATIONS Current medications include: 1. Carvedilol 6.25 milligrams twice a day. 2. Aricept 10 milligrams daily. 3. Atorvastatin 20 milligrams daily. 4. Paxil 10 milligrams daily. 5. Pantoprazole 40 milligrams IV every 12 hours. DATA Admission hemoglobin was 7.4. Current hemoglobin 12.4. White count 7.5, platelet count 230. INR 2. BMP with a sodium 140, potassium 3.8, BUN 21, creatinine 1.23, glucose 86, troponin less than 0.02. BMP 734. IMAGING STUDIES Abdominal CT abnormal urinary bladder with soft tissue densities on the wall that might represent tumor, particularly in view that there is left hydroureter and hydronephrosis, moderate bilateral pleural effusions and sigmoid diverticular disease. CARDIOLOGY STUDIES Electrocardiogram showed atrial fibrillation with rapid ventricular response and lateral ischemic changes. ASSESSMENT 75-year-old white female admitted with progressive shortness of breath and found to be in atrial fibrillation with rapid ventricular response as well as anemic. She is undergoing anemia workup with both GI and gynecologic consultations. Currently, her heart rate is well-controlled. Of course, the patient cannot have her anticoagulation restarted until her bleeding source is identified. We will continue to monitor closely. A 2-D echocardiogram has been requested and results are pending. MD WILEY Ward/MISSY /6:19 PM /6:43 PM [email or web address]
[2016-02-29] MEDS: CARVEDILOL 6.25 MG TAB PO SCH (20:08)
[2016-02-29] MEDS: DONEPEZIL HCL 5 MG TAB PO SCH (20:08)
[2016-02-29] MEDS: ATORVASTATIN 20 MG TAB PO SCH (20:08)
[2016-02-29] MEDS: LORazepam 2 MG/ML VIAL IV PRN (21:43)
[2016-02-29] MEDS ORDERED: RESP: LEVALBUTEROL HYDROCHLORIDE 1.25 MG/3 ML NEB (SCH) NEB ONE (21:45)
[2016-03-01] VITALS (21 sets, daily range): BP systolic 98–142; BP diastolic 50–99; PULSE 88–120; RESP 18–20; TEMP 97.6–98.7; O2SAT 93–99
[2016-03-01] MEDS: INSULIN NovoLIN REGULAR SUPPLEMENTAL SCALE SQ SCH ×4 (06:18→20:49)
[2016-03-01 07:58] LABS: HEMATOCRIT 31.8 % (35.0-46.0); MEAN CORPUSCULAR HEMOGLOBIN 22.8 PG (27.0-34.0); MEAN CORPUSCULAR HGB CONC 30.7 % (32.0-36.0); PLATELET COUNT 257 TH/MM3 (150-450); RED CELL DISTRIBUTION WIDTH 20.1 % (11.6-17.2); WHITE BLOOD COUNT 7.1 TH/MM3 (4.0-11.0)
[2016-03-01] MEDS: CARVEDILOL 6.25 MG TAB PO SCH ×2 (08:25→20:49)
[2016-03-01] MEDS: PARoxetine HCL 20 MG TAB PO SCH (08:25)
[2016-03-01] MEDS: LORazepam 2 MG/ML VIAL IV PRN (08:25)
[2016-03-01] MEDS: SODIUM CHLORIDE 0.9% FLUSH 5 ML FLUSH FLUSH SCH ×2 (08:25→20:49)
[2016-03-01 09:21] LABS: BICARBONATE 26.5 MEQ/L (21.0-32.0); POTASSIUM 3.9 MEQ/L (3.5-5.1)
[2016-03-01] MEDS: PANTOPRAZOLE SODIUM 40 MG VIAL IV PUSH SCH ×2 (11:00→23:00)
--- NOTE | 2016-03-01 12:36 | PD.CONS ---
HPI Service Urology Consult Requested By Reason for Consult Bladder mass Primary Care Physician Rubin Mays M.D. Diagnosis: History of Present Illness 75yo female with signficant cardiac history and stroke as well as a history of bladder mass followed by Dr. Hernandez in Urology now admitted for Afib RVR. Patient was found to have a pulse in the 140's and CT scan identified the large bladder mass along with left hydronephrosis. Patient was scheduled to undergo a TURBT, however due to her cardiac history and anticoagulation requirements this was postponed. She has been having hematuria. Currently denies any fevers, chills, N/V, abdominal or flank pain. Patient has some mild slurred speech due to her stroke history. Review of Systems ROS Limitations: Clinical Condition Constitutional: DENIES: Fever Endocrine: DENIES: Polyuria Eyes: DENIES: Blurred vision Ears, nose, mouth, throat: DENIES: Hearing loss Respiratory: DENIES: Apneas Cardiovascular: DENIES: Chest pain Gastrointestinal: DENIES: Abdominal pain Genitourinary: COMPLAINS OF: Hematuria Musculoskeletal: DENIES: Joint pain Integumentary: DENIES: Rash Hematologic/lymphatic: DENIES: Bruising Immunologic/allergic: DENIES: Eczema Neurologic: DENIES: Abnormal gait Psychiatric: DENIES: Anxiety Past Family Social History Past Medical History CVA Bilateral renal artery stenosis, s/p stenting left side Type II DM HTN Hyperlipidemia Hyperlipidemia Atrial fibrillation Anxiety Peripheral vascular disease GERD Hx brain aneurysm Intermittent vaginal bleeding x 2 years Past Surgical History Stenting for left renal artery stenosis Bilateral carotid endarterectomies Brain aneurysm clipping Cataract surgery Reported Medications Reported Meds & Active Scripts Active Coumadin (Warfarin) 1 Mg Tab 2 Mg PO DAILY Carvedilol 6.25 Mg Tab 6.25 Mg PO BID Atorvastatin (Atorvastatin Calcium) 20 Mg Tab 20 Mg PO HS Aspirin 81 Mg Chew 81 Mg CHEW DAILY Xanax (Alprazolam) 0.25 Mg Tab 0.25 Mg PO Q8HR PRN Donepezil 10 Mg Tab 10 Mg PO HS Paxil (Paroxetine HCl) 10 Mg Tab 10 Mg PO DAILY Reported Glimepiride 2 Mg Tab 2 Mg PO DAILY Take with breakfast or first main meal Namenda (Memantine) 5 Mg Tab 5 Mg PO BID Coreg (Carvedilol) 3.125 Mg Tab 3.125 Mg PO BID Allergies: Coded Allergies: Apresoline (Verified Allergy, Mild, itching, 02/27/16) Demerol (Verified Allergy, Unknown, unknown, 02/27/16) Phenergan (Verified Allergy, Unknown, unknown, 02/27/16) Active Ordered Medications Current Medications Medications (Trade) Dose Ordered Sig/Nilda Route Start Time Stop Time Status Last Admin (NS Flush) 2 ml UNSCH PRN FLUSH 02/27/16 23:15 (NS Flush) 2 ml BID FLUSH 02/28/16 09:00 03/01/16 08:25 (Tylenol) 650 mg Q4H PRN PO 02/27/16 23:15 (Zofran Inj) 4 mg Q6H PRN IVP 02/27/16 23:15 (Narcan Inj) 0.4 mg UNSCH PRN IV 02/27/16 23:15 (Aricept) 10 mg HS PO 02/28/16 21:00 02/29/16 20:08 (Paxil) 10 mg DAILY PO 02/28/16 09:00 03/01/16 08:25 (Protonix Inj) 40 mg Q12H IV PUSH 02/27/16 23:00 03/01/16 11:00 (Lipitor) 20 mg HS PO 02/28/16 21:00 02/29/16 20:08 (D50w (Vial) Inj) 25 ml UNSCH PRN IV PUSH 02/28/16 11:00 (Glucagon Inj) 1 mg UNSCH PRN OTHER 02/28/16 11:00 (Coreg) 6.25 mg BID PO 02/29/16 21:00 03/01/16 08:25 (Ativan Inj) 0.5 mg Q6H PRN IV 02/29/16 21:45 03/01/16 08:25 Family History Denies any family hx cancer Social History No tobacco. No ETOH. Physical Exam Vital Signs Vital Signs Date Time Temp Pulse Resp B/P Pulse Ox O2 Delivery O2 Flow Rate FiO2 03/01/16 08:44 96 2.00 03/01/16 08:00 98.2 114 20 142/83 95 03/01/16 07:30 95 Nasal Cannula 2.00 03/01/16 06:00 99 03/01/16 05:00 105 03/01/16 04:00 88 03/01/16 04:00 Nasal Cannula 2.00 1/1/17 04:00 97.9 88 18 123/58 93 03/01/16 03:00 95 03/01/16 02:00 98 03/01/16 01:00 100 03/01/16 00:00 109 03/01/16 00:00 Nasal Cannula 1.00 03/01/16 00:00 97.6 109 18 98/50 99 02/29/16 23:00 105 02/29/16 22:07 92 Nasal Cannula 2.00 02/29/16 22:00 115 02/29/16 21:00 118 02/29/16 20:00 98.0 111 20 117/71 97 02/29/16 20:00 Nasal Cannula 2.00 02/29/16 20:00 111 02/29/16 18:00 123 02/29/16 17:00 112 02/29/16 16:00 115 02/29/16 15:00 99 Nasal Cannula 4.00 02/29/16 15:00 96 02/29/16 15:00 97.6 106 18 142/70 99 02/29/16 14:00 97.9 96 20 133/87 98 02/29/16 14:00 119 Physical Exam GENERAL: This is a well-nourished, well-developed patient, in no apparent distress. SKIN: No rashes, ecchymoses or lesions. Cool and dry. HEAD: Atraumatic. Normocephalic EYES: Extraocular motions intact. No scleral icterus. No injection or drainage. ENT: Nose without bleeding, purulent drainage. Airway patent. NECK: Trachea midline. No JVD or lymphadenopathy. CARDIOVASCULAR: Well perfused extremities RESPIRATORY: Nonlabored, equal and symmetric chest rise GASTROINTESTINAL: Abdomen soft, non-tender, nondistended. MUSCULOSKELETAL: Extremities without clubbing, cyanosis, or edema. NEUROLOGICAL: Awake and alert. Slight slurred speech. No obvious facial droop. Motor and sensory grossly within normal limits. Laboratory Laboratory Tests Test 02/29/16 03/01/16 16:11 06:55 Hemoglobin 12.4 9.8 Hematocrit 40.8 31.8 D-Dimer Quantitative (PE/DVT) 0.98 Troponin I LESS THAN 0.02 B-Type Natriuretic Peptide 734 White Blood Count 7.1 Red Blood Count 4.30 Mean Corpuscular Volume 74.0 Mean Corpuscular Hemoglobin 22.8 Mean Corpuscular Hemoglobin 30.7 Concent Red Cell Distribution Width 20.1 Platelet Count 257 Mean Platelet Volume 10.0 Sodium Level 137 Potassium Level 3.9 Chloride Level 99 Carbon Dioxide Level 26.5 Anion Gap 12 Blood Urea Nitrogen 26 Creatinine 1.39 Estimat Glomerular Filtration 37 Rate Random Glucose 118 Calcium Level 8.3 Result Diagram: 03/01/16 0655 03/01/16 0655 Imaging Last 72 hours Impressions Chest X-Ray 02/29/16 0000 Signed Impressions: Service Date/Time: Monday, February 29, 2016 12:27 - CONCLUSION: Bilateral effusions and basilar consolidation are identified. Dave Campbell MD Abdomen/Pelvis CT 02/28/16 0000 Signed Impressions: Service Date/Time: Sunday, February 28, 2016 17:20 - CONCLUSION: Abnormal urinary bladder with soft tissue densities dispersed against the wall which may represent tumor particularly in view that there is left hydroureter and hydronephrosis to the UV junction indicating obstruction. Moderate sized bilateral posterior layering pleural effusions. Uncomplicated diverticuli of the sigmoid colon and degenerative findings the lumbar spine as described above. Chriss Maradiaga MD Chest X-Ray 02/27/162132 Signed Impressions: Service Date/Time: January 21:41 - CONCLUSION: Mild failure. Ferny Salazar MD Last 48 hours Impressions Chest X-Ray 02/29/16 0000 Signed Impressions: Service Date/Time: Monday, February 29, 2016 12:27 - CONCLUSION: Bilateral effusions and basilar consolidation are identified. Dave Campbell MD Assessment and Plan Problem List: (1) Atrial fibrillation ICD Code: I48.91 Status: Chronic (2) Hematuria ICD Code: R31.9 Status: Acute Assessment and Plan 75yo female with Afib and large bladder mass resulting in hematuria and left hydronephrosis -Patient is followed closely by Dr. Hernandez. -Plan for TURBT once stabilized from a cardiac perspective. No immediate intervention indicated at this time -Patient to follow-up in clinic with Dr. Hernandez after discharge -Plan discussed with patient awho understands and agrees with above plan -Please call with questions Carlo Sommer MD Mar 01, 2016 12:35
--- NOTE | 2016-03-01 13:17 | HHI.PR ---
Subjective History of Present Illness feels ok denies chest pain Breathing is okay Heart rate still fluctuating between 90s to 110s No cough or sputum production No fever or chills No nausea or vomiting no melena or brbpr Offers no complaints Vitals/Results Intake & Output 02/29/16 02/29/16 03/01/16 15:00 23:00 07:00 Intake Total 600 ml 480 ml 242 ml Balance 600 ml 480 ml 242 ml Intake Oral 600 ml 480 ml 240 ml IV Total 2 ml # Voids 3 6 4 # Bowel Movements 0 1 1 Vital Signs Vital Signs Date Time Temp Pulse Resp B/P Pulse Ox O2 Delivery O2 Flow Rate FiO2 03/01/16 08:44 96 2.00 03/01/16 08:00 98.2 114 20 142/83 95 03/01/16 07:30 95 Nasal Cannula 2.00 03/01/16 06:00 99 03/01/16 05:00 105 03/01/16 04:00 88 03/01/16 04:00 Nasal Cannula 2.00 03/01/16 04:00 97.9 88 18 123/58 93 03/01/16 03:00 95 03/01/16 02:00 98 03/01/16 01:00 100 03/01/16 00:00 109 03/01/16 00:00 Nasal Cannula 1.00 03/01/16 00:00 97.6 109 18 98/50 99 02/29/16 23:00 105 02/29/16 22:07 92 Nasal Cannula 2.00 02/29/16 22:00 115 02/29/16 21:00 118 02/29/16 20:00 98.0 111 20 117/71 97 02/29/16 20:00 Nasal Cannula 2.00 02/29/16 20:00 111 02/29/16 18:00 123 02/29/16 17:00 112 02/29/16 16:00 115 02/29/16 15:00 99 Nasal Cannula 4.00 02/29/16 15:00 96 02/29/16 15:00 97.6 106 18 142/70 99 02/29/16 14:00 97.9 96 20 133/87 98 02/29/16 14:00 119 CBC/BMP: 03/01/16 0655 03/01/16 0655 Lab Results Laboratory Tests Test 02/29/16 03/01/16 16:11 06:55 Hemoglobin 12.4 GM/DL 9.8 GM/DL Hematocrit 40.8 % 31.8 % D-Dimer Quantitative (PE/DVT) 0.98 MG/L FEU Troponin I LESS THAN 0.02 NG/ML B-Type Natriuretic Peptide 734 PG/ML White Blood Count 7.1 TH/MM3 Red Blood Count 4.30 MIL/MM3 Mean Corpuscular Volume 74.0 FL Mean Corpuscular Hemoglobin 22.8 PG Mean Corpuscular Hemoglobin 30.7 % Concent Red Cell Distribution Width 20.1 % Platelet Count 257 TH/MM3 Mean Platelet Volume 10.0 FL Sodium Level 137 MEQ/L Potassium Level 3.9 MEQ/L Chloride Level 99 MEQ/L Carbon Dioxide Level 26.5 MEQ/L Anion Gap 12 MEQ/L Blood Urea Nitrogen 26 MG/DL Creatinine 1.39 MG/DL Estimat Glomerular Filtration 37 ML/MIN Rate Random Glucose 118 MG/DL Calcium Level 8.3 MG/DL Physical Exam General General Appearance: No Acute Distress, Comfortable Appearance Remarks Elderly frail female Ears & Nose Ears & Nose Exam: Nasal Mucosa [place] Throat Throat Exam: Oral Mucosa [place] & Moist Neck Neck Exam: Neck Supple, Trachea Midline Pulmonary Resp Exam: Clear Bilaterally, Breath Sounds Equal Cardiology CV Remarks Is irregularly irregular rhythm Gastrointestinal/Abdomen GI Exam: Soft, Non-Tender, Bowel Sounds Present Integumentary Skin Exam: Warm, Dry Neurologic Neuro Exam: Alert, Awake, Speech Clear, Moving All Extremities Neuro Remarks Forgetful PUD Prophylasis PUD Prophylaxis: Protonix Assessment/Plan Assessment/Plan DIAGNOSTIC IMPRESSION . Shortness of breath likely secondary to a combination of atrial fibrillation with rapid ventricular rate and Anemia. . Atrial fibrillation with rapid ventricular rate. . Anemia possibly rule out GI bleed. . History of recent strokes with severe cognitive deficits and memory loss. . Hx of Intracranial Aneurysm s/p Coiling . History of hypertension . hyperlipidemia. . History of diabetes. . Hx MONTEZ s/p stenting . Hx PAD Plan IV fluids Status post PRBC transfusion follow-up H&H stable Continue PPI GI input appreciated, scope on wednesday CT abdomen noted Increase carvedilol for rate control Hold Coumadin, urology consultation noted d/w Dr Irizarry , she rec proceeding w GI & eval in patent keep off coumadin /may use lovenox for bridging Continue statin Continue Aricept A.m. labs Follow Julianne Harrington MD Mar 01, 2016 13:17 Dr. garcia , she was supposed to have what sounds like TURBT, it was not done due to a stroke & need for coagulation A.m. labs Follow Addendum Halicat was called pt was hypoxemic stat chest x-ray/BNP/EKG was done Lasix was given Patient was transferred to [facility] Went back to see her about 4 PM EKG /chest x-ray reviewed BNP noted In the sitting up in chair/feeling well Her daughter was at bedside Cardiology services consult Continue supportive care Julianne Harrington MD Mar 01, 2016 13:17
--- NOTE | 2016-03-01 13:29 | EKG ---
Date Performed: 02/29/2016 Time Performed: 12:41:10 PTAGE: 75 years EKG: ATRIAL FIBRILLATION NONSPECIFIC ST & T-WAVE ABNORMALITY Since previous tracing, no signific ant change noted ABNORMAL RHYTHM ECG PREVIOUS TRACING : 02/27/2016 21.26 DOCTOR: Bernie Walker Interpretating Date/Time 03/01/2016 13:27:28
[2016-03-01] MEDS: ENOXAPARIN SODIUM 30 MG/0.3 ML SYRINGE SQ SCH (18:16)
[2016-03-01] MEDS: DONEPEZIL HCL 5 MG TAB PO SCH (20:48)
[2016-03-01] MEDS: ATORVASTATIN 20 MG TAB PO SCH (20:48)
[2016-03-01] MEDS: RESP: ALBUTEROL 2.5 MG/IPRATROPIUM 0.5 MG NEB (PRN) NEB (20:50)
[2016-03-02] VITALS (24 sets, daily range): BP systolic 100–135; BP diastolic 62–82; PULSE 87–119; RESP 18–20; TEMP 98–98.6; O2SAT 96–98
[2016-03-02] MEDS: RESP: ALBUTEROL 2.5 MG/IPRATROPIUM 0.5 MG NEB (PRN) NEB (04:53)
[2016-03-02] MEDS: ENOXAPARIN SODIUM 30 MG/0.3 ML SYRINGE SQ SCH ×2 (06:22→18:36)
[2016-03-02] MEDS: INSULIN NovoLIN REGULAR SUPPLEMENTAL SCALE SQ SCH ×4 (06:24→22:32)
[2016-03-02 07:53] LABS: HEMATOCRIT 28.2 % (35.0-46.0); MEAN CELL VOLUME 73.9 FL (80.0-100.0); MEAN CORPUSCULAR HEMOGLOBIN 23.1 PG (27.0-34.0); MEAN CORPUSCULAR HGB CONC 31.2 % (32.0-36.0); PLATELET COUNT 225 TH/MM3 (150-450); RED BLOOD COUNT 3.82 MIL/MM3 (4.00-5.30); RED CELL DISTRIBUTION WIDTH 20.3 % (11.6-17.2); WHITE BLOOD COUNT 6.4 TH/MM3 (4.0-11.0)
[2016-03-02 07:56] LABS: REVIEW FLAG FINAL
[2016-03-02 08:04] LABS: INTERNATIONAL NORMALIZED RATIO 1.4 RATIO; PROTHROMBIN TIME - PATIENT 15.6 SEC (9.8-11.6)
[2016-03-02] MEDS: CARVEDILOL 6.25 MG TAB PO SCH ×2 (09:42→22:15)
[2016-03-02] MEDS: SODIUM CHLORIDE 0.9% FLUSH 5 ML FLUSH FLUSH SCH ×2 (09:42→22:16)
[2016-03-02] MEDS: PARoxetine HCL 20 MG TAB PO SCH (09:42)
[2016-03-02] MEDS: PANTOPRAZOLE SODIUM 40 MG VIAL IV PUSH SCH ×2 (13:00→22:15)
--- NOTE | 2016-03-02 14:31 | HHI.PR ---
Subjective History of Present Illness Resting in bed Pleasantly confused Denies chest pain or shortness of breath No nausea or vomiting Heart rate still fluctuating between 90s to 110s No cough or sputum production No fever or chills No nausea or vomiting no melena or brbpr Offers no complaints Vitals/Results Intake & Output 03/01/16 03/01/16 03/02/16 15:00 23:00 07:00 Intake Total 1460 ml 180 ml Balance 1460 ml 180 ml Intake Oral 960 ml 180 ml IV Total 500 ml # Voids 4 3 # Bowel Movements 1 1 Vital Signs Vital Signs Date Time Temp Pulse Resp B/P Pulse Ox O2 Delivery O2 Flow Rate FiO2 03/02/16 11:00 98.6 100 18 111/75 96 03/02/16 11:00 100 03/02/16 11:00 96 Room Air 03/02/16 10:00 90 03/02/16 09:00 87 03/02/16 08:00 106 03/02/16 07:00 103 03/02/16 07:00 96 Nasal Cannula 2.00 03/02/16 07:00 98.4 88 18 116/69 96 03/02/16 06:00 92 03/02/16 05:00 99 03/02/16 04:00 98.0 92 20 100/62 97 03/02/16 04:00 98 Nasal Cannula 2.00 03/02/16 04:00 96 03/02/16 03:00 99 03/02/16 02:00 99 03/02/16 01:00 104 03/02/16 00:00 97 03/02/16 00:00 98 Nasal Cannula 2.00 03/02/16 00:00 98.3 111 20 117/82 96 03/01/16 23:00 102 03/01/16 22:00 102 03/01/16 21:00 113 03/01/16 20:50 98 Nasal Cannula 2.00 03/01/16 20:00 98 Nasal Cannula 2.00 03/01/16 20:00 98.7 118 20 102/73 98 03/01/16 20:00 120 03/01/16 18:00 115 03/01/16 15:00 95 03/01/16 15:00 97 Nasal Cannula 2.00 03/01/16 15:00 98.5 104 20 139/99 97 CBC/BMP: 03/02/16 0723 03/01/16 0655 Lab Results Laboratory Tests Test 03/02/16 07:23 White Blood Count 6.4 TH/MM3 Red Blood Count 3.82 MIL/MM3 Hemoglobin 8.8 GM/DL Hematocrit 28.2 % Mean Corpuscular Volume 73.9 FL Mean Corpuscular Hemoglobin 23.1 PG Mean Corpuscular Hemoglobin 31.2 % Concent Red Cell Distribution Width 20.3 % Platelet Count 225 TH/MM3 Mean Platelet Volume 9.8 FL Prothrombin Time 15.6 SEC Prothromb Time International 1.4 RATIO Ratio Physical Exam General General Appearance: No Acute Distress, Comfortable Appearance Remarks Elderly frail female Ears & Nose Ears & Nose Exam: Nasal Mucosa [place] Throat Throat Exam: Oral Mucosa [place] & Moist Neck Neck Exam: Neck Supple, Trachea Midline Pulmonary Resp Exam: Clear Bilaterally, Breath Sounds Equal Cardiology CV Exam: Tachycardia CV Remarks Is irregularly irregular rhythm Gastrointestinal/Abdomen GI Exam: Soft, Non-Tender, Bowel Sounds Present Integumentary Skin Exam: Warm, Dry Neurologic Neuro Exam: Alert, Awake, Speech Clear, Moving All Extremities Neuro Remarks Forgetful PUD Prophylasis PUD Prophylaxis: Protonix Assessment/Plan Assessment/Plan DIAGNOSTIC IMPRESSION . Shortness of breath likely secondary to a combination of atrial fibrillation with rapid ventricular rate and Anemia. . Atrial fibrillation with rapid ventricular rate. . Anemia possibly rule out GI bleed. . History of recent strokes with severe cognitive deficits and memory loss. . Hx of Intracranial Aneurysm s/p Coiling . History of hypertension . hyperlipidemia. . History of diabetes. . Hx MONTEZ s/p stenting . Hx PAD Plan IV fluids Status post PRBC transfusion follow-up H&H stable Continue PPI GI input appreciated, scope on wednesday CT abdomen noted Increase carvedilol for rate control keep off coumadin / lovenox for bridging Continue statin Patient should undergo inpatient TURBT due to high need for anticoagulation, which would be hard to do as an outpatient. I called Dr. Sinha , spoke to covering urologist Dr. Escalante , he is covering DrMelissa for urology service . He recommended to call back tomorrow morning and speak with Dr. garcia, primary urologist, to get the procedure arranged inpatient Continue Aricept A.m. labs Dr. Simental will Follow Julianne Harrington MD Mar 02, 2016 14:31
[2016-03-02] MEDS: ATORVASTATIN 20 MG TAB PO SCH (22:15)
[2016-03-02] MEDS: DONEPEZIL HCL 5 MG TAB PO SCH (22:15)
[2016-03-03] VITALS (27 sets, daily range): BP systolic 120–135; BP diastolic 68–89; PULSE 73–113; RESP 16–20; TEMP 97.8–98.4; O2SAT 94–100
[2016-03-03] MEDS: ENOXAPARIN SODIUM 30 MG/0.3 ML SYRINGE SQ SCH ×2 (05:53→17:05)
[2016-03-03] MEDS: INSULIN NovoLIN REGULAR SUPPLEMENTAL SCALE SQ SCH ×4 (06:27→21:00)
[2016-03-03] MEDS: PARoxetine HCL 20 MG TAB PO SCH (08:26)
[2016-03-03] MEDS: SODIUM CHLORIDE 0.9% FLUSH 5 ML FLUSH FLUSH SCH ×2 (08:26→21:40)
[2016-03-03] MEDS: DIGOXIN 0.125 MG TAB PO SCH (08:26)
[2016-03-03] MEDS: CARVEDILOL 6.25 MG TAB PO SCH ×2 (08:27→21:41)
--- NOTE | 2016-03-03 10:27 | HHI.PR ---
Subjective Interval History Resting in bed Pleasantly confused Lying comfortably on the bed without any apparent distress Denies chest pain or shortness of breath No nausea or vomiting No diarrhea. Doesn't remember any blood in her stools No cough or sputum production No fever or chills No nausea or vomiting no melena or brbpr Offers no complaints Review of system for 12 point system otherwise unremarkable Vitals/Results Intake & Output 03/02/16 03/02/16 03/03/16 15:00 23:00 07:00 Intake Total 720 ml Balance 720 ml Intake Oral 720 ml # Voids 5 # Bowel Movements 2 Vital Signs Vital Signs Date Time Temp Pulse Resp B/P Pulse Ox O2 Delivery O2 Flow Rate FiO2 03/03/16 10:00 93 03/03/16 09:07 97 Nasal Cannula 2.00 03/03/16 09:00 90 03/03/16 08:00 96 03/03/16 07:32 99 Nasal Cannula 2.00 03/03/16 07:30 98.4 75 20 123/89 99 03/03/16 07:00 90 03/03/16 04:00 110 03/03/16 03:48 99 Nasal Cannula 2.00 03/03/16 03:38 97.8 112 20 125/77 97 03/03/16 03:00 75 03/03/16 02:00 73 03/03/16 01:00 77 03/03/16 00:49 97.8 81 16 131/75 100 03/03/16 00:00 95 03/02/16 23:56 96 Nasal Cannula 2.00 03/02/16 23:00 91 03/02/16 22:00 100 03/02/16 21:30 96 Nasal Cannula 2.00 03/02/16 21:00 119 03/02/16 20:00 97 Nasal Cannula 2.00 03/02/16 20:00 98.2 114 20 135/69 98 03/02/16 20:00 107 03/02/16 18:00 97 03/02/16 17:00 118 03/02/16 16:00 96 03/02/16 15:00 99 03/02/16 15:00 96 Nasal Cannula 2.00 03/02/16 15:00 98.2 107 20 116/62 98 03/02/16 14:00 92 03/02/16 13:00 104 03/02/16 12:00 93 03/02/16 11:00 98.6 100 18 111/75 96 03/02/16 11:00 100 03/02/16 11:00 96 Room Air CBC/BMP: 03/02/16 0723 03/01/16 0655 Physical Exam General General Appearance: Well Developed, No Acute Distress, Comfortable Ears & Nose Ears & Nose Exam: Nasal Mucosa [place] Throat Throat Exam: Oral Mucosa [place] & Moist Neck Neck Exam: Neck Supple, Trachea Midline Pulmonary Resp Exam: Clear Bilaterally, Breath Sounds Equal Cardiology CV Exam: Good Perfusion, Irregular Gastrointestinal/Abdomen GI Exam: Soft, Non-Tender, Bowel Sounds Present Integumentary Skin Exam: Warm, Dry Neurologic Neuro Exam: Alert, Awake, Speech Clear, Moving All Extremities Neuro Remarks Oriented to place and person. Don't know president month year or date. As the patient it is after her stroke PUD Prophylasis PUD Prophylaxis: Protonix Assessment/Plan Assessment/Plan DIAGNOSTIC IMPRESSION . Shortness of breath likely secondary to a combination of atrial fibrillation with rapid ventricular rate and Anemia. . Atrial fibrillation with rapid ventricular rate. . Anemia possibly rule out GI bleed. . History of recent strokes with severe cognitive deficits and memory loss. . Hx of Intracranial Aneurysm s/p Coiling . History of hypertension . hyperlipidemia. . History of diabetes. . Hx MONTEZ s/p stenting . Hx PAD Plan IV fluids Status post PRBC transfusion follow-up H&H stable Continue PPI GI input appreciated, scope questionably today CT abdomen noted On digoxin and carvedilol keep off coumadin /on lovenox for bridging Continue statin Medications reviewed Labs reviewed Previous notes reviewed Patient should undergo inpatient TURBT due to high need for anticoagulation, which would be hard to do as an outpatient. I tried to call Dr. garcia, primary urologist, to get the procedure arranged inpatient. As per forming machine operator nobody is answering phone yet Continue Aricept A.m. labs Total time spent more than 35 minutes in management of this patient, including reviewing of records. Jamison Simental MD Mar 03, 2016 10:27
[2016-03-03] MEDS: PANTOPRAZOLE SODIUM 40 MG VIAL IV PUSH SCH ×2 (10:43→21:41)
--- NOTE | 2016-03-03 13:30 | HHI.PR ---
Subjective Remarks Denies pain. continues to have hematuria. Denies fevers. On Lovenox bid. Objective Vital Signs Vital Signs Date Time Temp Pulse Resp B/P Pulse Ox O2 Delivery O2 Flow Rate FiO2 03/03/16 13:00 112 03/03/16 12:00 103 03/03/16 11:00 98.1 93 18 120/68 95 03/03/16 11:00 90 03/03/16 11:00 95 Room Air 03/03/16 10:00 93 03/03/16 09:07 97 Nasal Cannula 2.00 03/03/16 09:00 90 03/03/16 08:00 96 03/03/16 07:32 99 Nasal Cannula 2.00 03/03/16 07:30 98.4 75 20 123/89 99 03/03/16 07:00 90 03/03/16 04:00 110 03/03/16 03:48 99 Nasal Cannula 2.00 03/03/16 03:38 97.8 112 20 125/77 97 03/03/16 03:00 75 03/03/16 02:00 73 03/03/16 01:00 77 03/03/16 00:49 97.8 81 16 131/75 100 03/03/16 00:00 95 03/02/16 23:56 96 Nasal Cannula 2.00 03/02/16 23:00 91 03/02/16 22:00 100 03/02/16 21:30 96 Nasal Cannula 2.00 03/02/16 21:00 119 03/02/16 20:00 97 Nasal Cannula 2.00 03/02/16 20:00 98.2 114 20 135/69 98 03/02/16 20:00 107 03/02/16 18:00 97 03/02/16 17:00 118 03/02/16 16:00 96 03/02/16 15:00 99 03/02/16 15:00 96 Nasal Cannula 2.00 03/02/16 15:00 98.2 107 20 116/62 98 03/02/16 14:00 92 I/O 03/02/16 03/02/16 03/02/16 03/03/16 03/03/16 03/03/16 07:00 15:00 23:00 07:00 15:00 23:00 Intake Total 180 ml 720 ml 240 ml Balance 180 ml 720 ml 240 ml Intake Oral 180 ml 720 ml 240 ml IV Total 0 ml # Voids 3 5 5 # Bowel Movements 1 2 1 Result Diagram: 03/02/16 0723 03/01/16 0655 Imaging Last 72 hours Impressions Chest X-Ray 02/29/16 0000 Signed Impressions: Service Date/Time: Monday, February 29, 2016 12:27 - CONCLUSION: Bilateral effusions and basilar consolidation are identified. Dave Campbell MD Abdomen/Pelvis CT 02/28/16 0000 Signed Impressions: Service Date/Time: Sunday, February 28, 2016 17:20 - CONCLUSION: Abnormal urinary bladder with soft tissue densities dispersed against the wall which may represent tumor particularly in view that there is left hydroureter and hydronephrosis to the UV junction indicating obstruction. Moderate sized bilateral posterior layering pleural effusions. Uncomplicated diverticuli of the sigmoid colon and degenerative findings the lumbar spine as described above. Chriss Maradiaga MD Chest X-Ray 02/27/163 Signed Impressions: Service Date/Time: January 21:41 - CONCLUSION: Mild failure. Ferny Salazar MD Last 48 hours Impressions Chest X-Ray 02/29/16 0000 Signed Impressions: Service Date/Time: Monday, February 29, 2016 12:27 - CONCLUSION: Bilateral effusions and basilar consolidation are identified. Dave Campbell MD Objective Remarks NAD. slight confusion. abd soft, NT, nondistended. Assessment and Plan Assessment and Plan 75 yo female with gross hematuria, anemia, multiple bladder tumors -Agree with cystoscopy, TURBT while patient is in-house. -Will need to hold all anticoagulation 24 hours prior to procedure and likely at least 24 hours after procedure. -Will need medical, cardiac clearance to proceed. -Once she is cleared will arrange to get on schedule. Will need to coordinate with other services. -Transfuse as needed. -Thank you for consult. Chase Hernandez MD Mar 03, 2016 13:29
--- NOTE | 2016-03-03 14:56 | HHI.GIFU ---
Subjective Remarks Patient accompanied by a friend, she continue to have vaginal bleeding, no nausea, no vomiting or abdominal pain. (Shena Campos DALILA) Objective Vitals I&O Vital Signs Date Time Temp Pulse Resp B/P Pulse Ox O2 Delivery O2 Flow Rate FiO2 03/03/16 14:00 93 03/03/16 13:00 112 03/03/16 12:00 103 03/03/16 11:00 98.1 93 18 120/68 95 03/03/16 11:00 90 03/03/16 11:00 95 Room Air 03/03/16 10:00 93 03/03/16 09:07 97 Nasal Cannula 2.00 03/03/16 09:00 90 03/03/16 08:00 96 03/03/16 07:32 99 Nasal Cannula 2.00 03/03/16 07:30 98.4 75 20 123/89 99 03/03/16 07:00 90 03/03/16 04:00 110 03/03/16 03:48 99 Nasal Cannula 2.00 03/03/16 03:38 97.8 112 20 125/77 97 03/03/16 03:00 75 03/03/16 02:00 73 03/03/16 01:00 77 03/03/16 00:49 97.8 81 16 131/75 100 03/03/16 00:00 95 03/02/16 23:56 96 Nasal Cannula 2.00 03/02/16 23:00 91 03/02/16 22:00 100 03/02/16 21:30 96 Nasal Cannula 2.00 03/02/16 21:00 119 03/02/16 20:00 97 Nasal Cannula 2.00 03/02/16 20:00 98.2 114 20 135/69 98 03/02/16 20:00 107 03/02/16 18:00 97 03/02/16 17:00 118 03/02/16 16:00 96 03/02/16 15:00 99 03/02/16 15:00 96 Nasal Cannula 2.00 03/02/16 15:00 98.2 107 20 116/62 98 I/O 03/02/16 03/02/16 03/02/16 03/03/16 03/03/16 03/03/16 07:00 15:00 23:00 07:00 15:00 23:00 Intake Total 180 ml 720 ml 240 ml Balance 180 ml 720 ml 240 ml Intake Oral 180 ml 720 ml 240 ml IV Total 0 ml # Voids 3 5 5 # Bowel Movements 1 2 1 Imaging Last Impressions Chest X-Ray 02/29/16 0000 Signed Impressions: Service Date/Time: Monday, February 29, 2016 12:27 - CONCLUSION: Bilateral effusions and basilar consolidation are identified. Dave Campbell MD Abdomen/Pelvis CT 02/28/16 0000 Signed Impressions: Service Date/Time: Sunday, February 28, 2016 17:20 - CONCLUSION: Abnormal urinary bladder with soft tissue densities dispersed against the wall which may represent tumor particularly in view that there is left hydroureter and hydronephrosis to the UV junction indicating obstruction. Moderate sized bilateral posterior layering pleural effusions. Uncomplicated diverticuli of the sigmoid colon and degenerative findings the lumbar spine as described above. Chriss Maradiaga MD Physical Exam HEENT: Pupils round and reactive to light; normocephalic; atraumatic; no jaundice. Throat is clear. NECK: Neck is supple, no JVD, no lymphadenopathy. CHEST: Chest is clear to auscultation and percussion. CARDIAC: irregularly irregular rhythm ABDOMEN: Soft, nondistended, nontender; no hepatosplenomegaly; bowel sounds are present in all four quadrants. EXTREMITIES: No clubbing, cyanosis, or edema. SKIN: Normal; no rash; no jaundice. (Shena Campos) Assessment and Plan Plan ASSESSMENT: - Anemia with Hemoccult positive stool. H/H 7.4/23.9 on admission. S/P 2 units of PRBC, now HH 8.8 Pt denies any GI symptoms or bleeding but does report intermittent vaginal bleeding x 2 years. Of note, she is on Coumadin at home. Her INR is 1.5. This is currently being held in anticipation of GI workup. Possible EGD/Colonoscopy next week. - Bladder tumors, hematuria and frequency. urology, plan for TURBT once cleared by cardiology - Atrial fibrillation with RVR. Rate controlled. Coumadin on hold at this time. Lovenox Cardiology on the case - Recent CVA, HTN, Hyperlipidemia, DM per primary PLAN: - LITZY for now - EGD/Colonoscopy once cleared by cardiology - PPI - Monitor HH - Transfuse as necessary - Supportive care - Further recommendations to follow based on results of above - Patient seen and examined by Dr. Arguelles and myself (Shena Campos) Physician Comments Patient was seen and examined, agree with above note. we will check labs, continue supportive care. colon EGD when cleared by cardiology maybe . ( Bceca Arguelles MD) Shena Campos Mar 03, 2016 14:56 Becca Arguelles MD Mar 03, 2016 22:19
[2016-03-03] MEDS: DONEPEZIL HCL 5 MG TAB PO SCH (21:41)
[2016-03-03] MEDS: ATORVASTATIN 20 MG TAB PO SCH (21:41)
[2016-03-04] VITALS (21 sets, daily range): BP systolic 114–142; BP diastolic 57–83; PULSE 80–108; RESP 16–18; TEMP 97.9–98.4; O2SAT 92–98
[2016-03-04] MEDS: ENOXAPARIN SODIUM 30 MG/0.3 ML SYRINGE SQ SCH ×2 (05:25→17:14)
[2016-03-04] MEDS: INSULIN NovoLIN REGULAR SUPPLEMENTAL SCALE SQ SCH ×4 (05:25→21:00)
[2016-03-04] MEDS: CARVEDILOL 6.25 MG TAB PO SCH ×2 (08:14→22:06)
[2016-03-04] MEDS: PARoxetine HCL 20 MG TAB PO SCH (08:15)
[2016-03-04] MEDS: DIGOXIN 0.125 MG TAB PO SCH (08:15)
[2016-03-04] MEDS: SODIUM CHLORIDE 0.9% FLUSH 5 ML FLUSH FLUSH SCH ×2 (08:15→22:07)
[2016-03-04 08:41] LABS: HEMATOCRIT 30.1 % (35.0-46.0); MEAN CELL VOLUME 73.3 FL (80.0-100.0); MEAN CORPUSCULAR HEMOGLOBIN 22.7 PG (27.0-34.0); MEAN CORPUSCULAR HGB CONC 30.9 % (32.0-36.0); PLATELET COUNT 225 TH/MM3 (150-450); RED BLOOD COUNT 4.11 MIL/MM3 (4.00-5.30); RED CELL DISTRIBUTION WIDTH 20.6 % (11.6-17.2)
[2016-03-04 08:45] LABS: REVIEW FLAG FINAL
[2016-03-04 08:57] LABS: BICARBONATE 25.9 MEQ/L (21.0-32.0); POTASSIUM 4.3 MEQ/L (3.5-5.1)
[2016-03-04] MEDS: PANTOPRAZOLE SODIUM 40 MG VIAL IV PUSH SCH (11:28)
[2016-03-04] MEDS: LORazepam 2 MG/ML VIAL IV PRN (11:35)
[2016-03-04] MEDS: RESP: ALBUTEROL 2.5 MG/IPRATROPIUM 0.5 MG NEB (PRN) NEB (11:42)
--- NOTE | 2016-03-04 12:14 | HHI.PR ---
Subjective Interval History Resting in bed Pleasantly confused As per RN had a shortness of breath this morning Lying comfortably on the bed without any apparent distress Denies chest pain or shortness of breath No nausea or vomiting No diarrhea. Doesn't remember any blood in her stools No cough or sputum production No fever or chills No nausea or vomiting no melena or brbpr Offers no complaints Review of system for 12 point system otherwise unremarkable Vitals/Results Intake & Output 03/03/16 03/03/16 03/04/16 15:00 23:00 07:00 Intake Total 240 ml 480 ml 240 ml Balance 240 ml 480 ml 240 ml Intake Oral 240 ml 480 ml 240 ml IV Total 0 ml 0 ml # Voids 5 6 3 # Bowel Movements 1 1 0 Vital Signs Vital Signs Date Time Temp Pulse Resp B/P Pulse Ox O2 Delivery O2 Flow Rate FiO2 03/04/16 11:00 83 03/04/16 10:00 84 03/04/16 09:00 92 03/04/16 08:00 Room Air 03/04/16 08:00 106 03/04/16 08:00 98.1 108 16 130/83 96 03/04/16 07:00 95 03/04/16 06:00 88 03/04/16 05:00 95 03/04/16 04:00 Room Air 03/04/16 04:00 98.4 100 18 142/74 92 03/04/16 04:00 88 03/04/16 03:00 84 03/04/16 02:00 85 03/04/16 01:00 91 03/04/16 00:00 Room Air 03/04/16 00:00 86 03/04/16 00:00 98.2 102 18 121/66 94 03/03/16 23:08 96 Nasal Cannula 2.00 03/03/16 23:00 93 03/03/16 22:00 94 03/03/16 21:00 96 03/03/16 20:00 105 03/03/16 20:00 98.2 93 18 135/73 94 03/03/16 20:00 94 Room Air 03/03/16 19:00 113 03/03/16 18:00 108 03/03/16 17:00 102 03/03/16 16:00 98 03/03/16 15:00 98.2 93 18 127/77 95 03/03/16 15:00 95 Room Air 03/03/16 15:00 100 03/03/16 14:00 93 03/03/16 13:00 112 CBC/BMP: 03/04/16 0800 03/04/16 0800 Lab Results Laboratory Tests Test 03/04/16 08:00 White Blood Count 6.0 TH/MM3 Red Blood Count 4.11 MIL/MM3 Hemoglobin 9.3 GM/DL Hematocrit 30.1 % Mean Corpuscular Volume 73.3 FL Mean Corpuscular Hemoglobin 22.7 PG Mean Corpuscular Hemoglobin 30.9 % Concent Red Cell Distribution Width 20.6 % Platelet Count 225 TH/MM3 Mean Platelet Volume 10.1 FL Sodium Level 141 MEQ/L Potassium Level 4.3 MEQ/L Chloride Level 104 MEQ/L Carbon Dioxide Level 25.9 MEQ/L Anion Gap 11 MEQ/L Blood Urea Nitrogen 27 MG/DL Creatinine 1.31 MG/DL Estimat Glomerular Filtration 40 ML/MIN Rate Random Glucose 136 MG/DL Calcium Level 8.7 MG/DL Physical Exam General General Appearance: Well Developed, No Acute Distress, Comfortable Ears & Nose Ears & Nose Exam: Nasal Mucosa [place] Throat Throat Exam: Oral Mucosa [place] & Moist Neck Neck Exam: Neck Supple, Trachea Midline Pulmonary Resp Exam: Clear Bilaterally, Breath Sounds Equal Cardiology CV Exam: Good Perfusion, Irregular Gastrointestinal/Abdomen GI Exam: Soft, Non-Tender, Bowel Sounds Present Integumentary Skin Exam: Warm, Dry Neurologic Neuro Exam: Alert, Awake, Speech Clear, Moving All Extremities Neuro Remarks Oriented to place and person. Don't know president month year or date. As the patient it is after her stroke PUD Prophylasis PUD Prophylaxis: Protonix Assessment/Plan Assessment/Plan DIAGNOSTIC IMPRESSION . Shortness of breath likely secondary to a combination of atrial fibrillation with rapid ventricular rate and Anemia. . Atrial fibrillation with rapid ventricular rate. . Anemia possibly rule out GI bleed. . History of recent strokes with severe cognitive deficits and memory loss. . Hx of Intracranial Aneurysm s/p Coiling . History of hypertension . hyperlipidemia. . History of diabetes. . Hx MONTEZ s/p stenting . Hx PAD Plan IV fluids Status post PRBC transfusion follow-up H&H stable and improving Continue PPI GI input appreciated, scope once cleared by cardiology CT abdomen noted On digoxin and carvedilol controlled heart rate keep off coumadin /on lovenox for bridging Continue statin Medications reviewed Labs reviewed Previous notes reviewed Patient should undergo inpatient TURBT due to high need for anticoagulation, which would be hard to do as an outpatient. Appreciate Dr. garcia, primary urologist, input once cleared by cardiology he will arrange in patients procedure. Continue Aricept A.m. labs Discussed with Jamison Mccurdy MD Mar 04, 2016 12:14
--- NOTE | 2016-03-04 13:06 | PD.CARD.PN ---
Objective Vital Signs / I&O Vital Signs Date Time Temp Pulse Resp B/P Pulse Ox O2 Delivery O2 Flow Rate FiO2 03/04/16 12:00 98.2 81 18 114/65 96 03/04/16 12:00 Room Air 03/04/16 12:00 86 03/04/16 11:00 83 03/04/16 10:00 84 03/04/16 09:00 92 03/04/16 08:00 Room Air 03/04/16 08:00 106 03/04/16 08:00 98.1 108 16 130/83 96 03/04/16 07:00 95 03/04/16 06:00 88 03/04/16 05:00 95 03/04/16 04:00 Room Air 03/04/16 04:00 98.4 100 18 142/74 92 03/04/16 04:00 88 03/04/16 03:00 84 03/04/16 02:00 85 03/04/16 01:00 91 03/04/16 00:00 Room Air 03/04/16 00:00 86 03/04/16 00:00 98.2 102 18 121/66 94 03/03/16 23:08 96 Nasal Cannula 2.00 03/03/16 23:00 93 03/03/16 22:00 94 03/03/16 21:00 96 03/03/16 20:00 105 03/03/16 20:00 98.2 93 18 135/73 94 03/03/16 20:00 94 Room Air 03/03/16 19:00 113 03/03/16 18:00 108 03/03/16 17:00 102 03/03/16 16:00 98 03/03/16 15:00 98.2 93 18 127/77 95 03/03/16 15:00 95 Room Air 03/03/16 15:00 100 03/03/16 14:00 93 03/03/16 13:00 112 I/O 03/03/16 03/03/16 03/03/16 03/04/16 03/04/16 03/04/16 07:00 15:00 23:00 07:00 15:00 23:00 Intake Total 240 ml 480 ml 240 ml Balance 240 ml 480 ml 240 ml Intake Oral 240 ml 480 ml 240 ml IV Total 0 ml 0 ml # Voids 5 6 3 # Bowel Movements 1 1 0 Laboratory Laboratory Tests Test 03/04/16 08:00 White Blood Count 6.0 TH/MM3 Red Blood Count 4.11 MIL/MM3 Hemoglobin 9.3 GM/DL Hematocrit 30.1 % Mean Corpuscular Volume 73.3 FL Mean Corpuscular Hemoglobin 22.7 PG Mean Corpuscular Hemoglobin 30.9 % Concent Red Cell Distribution Width 20.6 % Platelet Count 225 TH/MM3 Mean Platelet Volume 10.1 FL Sodium Level 141 MEQ/L Potassium Level 4.3 MEQ/L Chloride Level 104 MEQ/L Carbon Dioxide Level 25.9 MEQ/L Anion Gap 11 MEQ/L Blood Urea Nitrogen 27 MG/DL Creatinine 1.31 MG/DL Estimat Glomerular Filtration 40 ML/MIN Rate Random Glucose 136 MG/DL Calcium Level 8.7 MG/DL Assessment and Plan Assessment and Plan PT IS A 75 Y/O F ADMITTED C SOB 2 ANEMISHE HAS OPAL TRANSFUSED AND HER HCT IS 28 % RANG SHE HAS CAF AND HAD RVR ON ADMISSION SHE HAS HAD CYST AND HAS A BLSDDER TUMOR SHE HAS HAD RECTAL AND VAGINAL BLEEDING INP IN ADDITION TO HEMATURIA SHE WAS SCHEDULED FOR CATH AFTER AN ABNL STRESS TEST DEMONSTRATING MULTIPLE REVERSIBLE DEFECTS AND EF OF 45 SHE IS ASYMPTOMATIC FOR ANGINA SHE HAS AN EXTENSIVE HX OF PVD AND CEREBROVASCULAR DX SHE IS NOW IN AN XAVI 2 DEMENTIA JVP NL BILAT CAROTID BRUITS LCTA IREGULAR NO S3 2/6 ANGEL NO EDEMA DISSCUSSION SHE IS HI RISK FOR ANY PROCEDURES NOT A CANDIDATE FOR CATH PCI DUE TO ACTIVE BLEEDING WOULD PROCEED C ENDOSCOPY AND CYSTOSCOPY TO FULGURATE KNOWN BLADDER TUMOR SHE NEEDS BUS CLEANER EXAM R/O OCCULT MALIGNANCY I DON'T BELIEVE SHE HAS HAD A HYS BUT SHE IS AN UNRELIABLE HISTORIAN HER DAUGHTER IS AN RN AND KNOWS HER HX WELL Christopher Tate DO Mar 04, 2016 13:05
--- NOTE | 2016-03-04 14:02 | HHI.GIFU ---
Subjective Remarks Patient is resting in bed, still with some vaginal bleeding, but no nausea, no vomiting or abdominal pain (Beth,Shena TECHNICAL SUPERVISOR) Objective Vitals I&O Vital Signs Date Time Temp Pulse Resp B/P Pulse Ox O2 Delivery O2 Flow Rate FiO2 03/04/16 12:00 98.2 81 18 114/65 96 03/04/16 12:00 Room Air 03/04/16 12:00 86 03/04/16 11:00 83 03/04/16 10:00 84 03/04/16 09:00 92 03/04/16 08:00 Room Air 03/04/16 08:00 106 03/04/16 08:00 98.1 108 16 130/83 96 03/04/16 07:00 95 03/04/16 06:00 88 03/04/16 05:00 95 03/04/16 04:00 Room Air 03/04/16 04:00 98.4 100 18 142/74 92 03/04/16 04:00 88 03/04/16 03:00 84 03/04/16 02:00 85 03/04/16 01:00 91 03/04/16 00:00 Room Air 03/04/16 00:00 86 03/04/16 00:00 98.2 102 18 121/66 94 03/03/16 23:08 96 Nasal Cannula 2.00 03/03/16 23:00 93 03/03/16 22:00 94 03/03/16 21:00 96 03/03/16 20:00 105 03/03/16 20:00 98.2 93 18 135/73 94 03/03/16 20:00 94 Room Air 03/03/16 19:00 113 03/03/16 18:00 108 03/03/16 17:00 102 03/03/16 16:00 98 03/03/16 15:00 98.2 93 18 127/77 95 03/03/16 15:00 95 Room Air 03/03/16 15:00 100 03/03/16 14:00 93 I/O 03/03/16 03/03/16 03/03/16 03/04/16 03/04/16 03/04/16 06:59 14:59 22:59 06:59 14:59 22:59 Intake Total 240 ml 480 ml 240 ml Balance 240 ml 480 ml 240 ml Intake Oral 240 ml 480 ml 240 ml IV Total 0 ml 0 ml # Voids 5 6 3 # Bowel Movements 1 1 0 Laboratory Laboratory Tests Test 03/04/16 08:00 White Blood Count 6.0 Red Blood Count 4.11 Hemoglobin 9.3 Hematocrit 30.1 Mean Corpuscular Volume 73.3 Mean Corpuscular Hemoglobin 22.7 Mean Corpuscular Hemoglobin 30.9 Concent Red Cell Distribution Width 20.6 Platelet Count 225 Mean Platelet Volume 10.1 Sodium Level 141 Potassium Level 4.3 Chloride Level 104 Carbon Dioxide Level 25.9 Anion Gap 11 Blood Urea Nitrogen 27 Creatinine 1.31 Estimat Glomerular Filtration 40 Rate Random Glucose 136 Calcium Level 8.7 Imaging Last Impressions Chest X-Ray 02/29/16 0000 Signed Impressions: Service Date/Time: Monday, February 29, 2016 12:27 - CONCLUSION: Bilateral effusions and basilar consolidation are identified. Dave Campbell MD Abdomen/Pelvis CT 02/28/16 0000 Signed Impressions: Service Date/Time: Sunday, February 28, 2016 17:20 - CONCLUSION: Abnormal urinary bladder with soft tissue densities dispersed against the wall which may represent tumor particularly in view that there is left hydroureter and hydronephrosis to the UV junction indicating obstruction. Moderate sized bilateral posterior layering pleural effusions. Uncomplicated diverticuli of the sigmoid colon and degenerative findings the lumbar spine as described above. Chriss Maradiaga MD Physical Exam HEENT: normocephalic; atraumatic; no jaundice. NECK: Neck is supple, no JVD, no lymphadenopathy. CHEST: Chest is clear to auscultation and percussion. CARDIAC: irregularly irregular rhythm ABDOMEN: Soft, nondistended, nontender; no hepatosplenomegaly; bowel sounds are present in all four quadrants. EXTREMITIES: No clubbing, cyanosis, or edema. SKIN: Normal; no rash; no jaundice. (Shena Campos) Assessment and Plan Plan ASSESSMENT: - Anemia with Hemoccult positive stool. H/H 7.4/23.9 on admission. S/P 2 units of PRBC, now hgb 9.3 Pt denies any GI symptoms or bleeding but does report intermittent vaginal bleeding x 2 years. Of note, she is on Coumadin at home. Her INR is 1.5. This is currently being held in anticipation of GI workup. - Bladder tumors, hematuria and frequency. urology, plan for TURBT once cleared by cardiology - Atrial fibrillation with RVR. Rate controlled. Coumadin on hold at this time. Lovenox Cardiology on the case - Recent CVA, HTN, Hyperlipidemia, DM per primary PLAN: - clear liquids - Has been cleared by cardiology, will proceed with EGD/Colonoscopy in the am - Obtain consents - NPO mn - Golytely today - Hold Lovenox after mn - PPI - Monitor HH - Transfuse as necessary - Supportive care - Further recommendations to follow based on results of above - Patient seen and examined by Dr. Arguelles and myself (Shena Campos) Physician Comments Patient was seen and examined, agree with above note and plan, labs for AM, colon EGD in am also. (Becca Arguelles MD) Shena Campos Mar 04, 2016 14:02 Becca Arguelles MD Mar 04, 2016 20:44
[2016-03-04] MEDS ORDERED: PEG (High)/E-LYTE SOLN 4000 ML BTL PO ONE (16:00)
[2016-03-04] MEDS: ATORVASTATIN 20 MG TAB PO SCH (22:06)
[2016-03-04] MEDS: DONEPEZIL HCL 5 MG TAB PO SCH (22:07)
[2016-03-05] VITALS (18 sets, daily range): BP systolic 111–165; BP diastolic 63–87; PULSE 73–118; RESP 16–19; TEMP 98.3–98.5; O2SAT 96–100
[2016-03-05] MEDS: PANTOPRAZOLE SODIUM 40 MG VIAL IV PUSH SCH ×3 (00:33→22:15)
[2016-03-05 06:06] LABS: HEMATOCRIT 29.8 % (35.0-46.0); MEAN CELL VOLUME 74.1 FL (80.0-100.0); MEAN CORPUSCULAR HEMOGLOBIN 22.9 PG (27.0-34.0); MEAN CORPUSCULAR HGB CONC 30.8 % (32.0-36.0); PLATELET COUNT 201 TH/MM3 (150-450); RED BLOOD COUNT 4.02 MIL/MM3 (4.00-5.30); RED CELL DISTRIBUTION WIDTH 20.9 % (11.6-17.2)
[2016-03-05 06:19] LABS: REVIEW FLAG FINAL
[2016-03-05] MEDS: INSULIN NovoLIN REGULAR SUPPLEMENTAL SCALE SQ SCH ×4 (06:27→21:00)
[2016-03-05] MEDS: SODIUM CHLORIDE 0.9% FLUSH 5 ML FLUSH FLUSH SCH ×2 (07:49→21:58)
[2016-03-05] MEDS: PARoxetine HCL 20 MG TAB PO SCH (07:49)
[2016-03-05] MEDS: CARVEDILOL 6.25 MG TAB PO SCH ×2 (07:49→21:58)
[2016-03-05] MEDS: DIGOXIN 0.125 MG TAB PO SCH (07:49)
--- NOTE | 2016-03-05 09:32 | RADRPT ---
EXAM DATE/TIME: 03/05/2016 09:20 [facility] COMPARISON: CHEST SINGLE AP, February 29, 2016, 12:27. INDICATIONS : Shortness of breath. MEDICAL HISTORY : Hypertension. Congestive heart failure. A-fib. SURGICAL HISTORY : None. ENCOUNTER: Initial ACUITY: 3 weeks PAIN SCORE: 0/10 LOCATION: Bilateral chest FINDINGS: A single view of the chest demonstrates the lungs to be symmetrically aerated without evidence of mas s, infiltrate or effusion. The cardiomediastinal contours are unremarkable. Osseous structures are intact. Plate and screws along the right clavicle unchanged. CONCLUSION: No acute disease. Ayan Bermudez MD on March 05, 2016 at 9:30 Board Certified Radiologist. This report was verified electronically.
[2016-03-05] MEDS ORDERED: PROPOFOL 200 MG/20 ML AMP IV ONE (11:12)
--- NOTE | 2016-03-05 11:37 | HHI.GIFU ---
Subjective Remarks feels ok, still some SOB but better. Objective Vitals I&O Vital Signs Date Time Temp Pulse Resp B/P Pulse Ox O2 Delivery O2 Flow Rate FiO2 03/05/16 08:45 98.3 101 16 111/63 96 03/05/16 08:00 Nasal Cannula 2.00 21 03/05/16 08:00 98.3 101 16 111/63 96 03/05/16 08:00 98 03/05/16 04:00 77 03/05/16 04:00 98.3 82 139/67 03/05/16 04:00 Room Air 03/05/16 00:00 79 03/05/16 00:00 98.5 73 18 154/84 98 03/05/16 00:00 Room Air 03/04/16 20:00 97.9 83 18 121/57 98 03/04/16 20:00 83 03/04/16 20:00 98 Nasal Cannula 2.00 03/04/16 18:00 88 03/04/16 17:00 103 03/04/16 16:00 Room Air 03/04/16 16:00 98.1 84 18 126/82 97 03/04/16 16:00 96 03/04/16 15:00 85 03/04/16 14:00 80 03/04/16 13:00 81 03/04/16 12:00 98.2 81 18 114/65 96 03/04/16 12:00 Room Air 03/04/16 12:00 86 I/O 03/04/16 03/04/16 03/04/16 03/05/16 03/05/16 03/05/16 06:59 14:59 22:59 06:59 14:59 22:59 Intake Total 240 ml 780 ml 720 ml Output Total 650 ml Balance 240 ml 130 ml 720 ml Intake Oral 240 ml 780 ml 720 ml IV Total 0 ml Output Urine Total 650 ml # Voids 3 4 # Bowel Movements 0 2 8 Laboratory Laboratory Tests Test 03/05/16 04:35 White Blood Count 6.0 Red Blood Count 4.02 Hemoglobin 9.2 Hematocrit 29.8 Mean Corpuscular Volume 74.1 Mean Corpuscular Hemoglobin 22.9 Mean Corpuscular Hemoglobin 30.8 Concent Red Cell Distribution Width 20.9 Platelet Count 201 Mean Platelet Volume 10.2 Sodium Level 142 Potassium Level 4.0 Chloride Level 105 Carbon Dioxide Level 28.0 Anion Gap 9 Blood Urea Nitrogen 20 Creatinine 1.17 Estimat Glomerular Filtration 45 Rate Random Glucose 92 Calcium Level 8.4 Physical Exam HEENT: normocephalic; atraumatic; no jaundice. NECK: Neck is supple, no JVD, no lymphadenopathy. CHEST: Chest is clear to auscultation and percussion. CARDIAC: irregularly irregular rhythm ABDOMEN: Soft, nondistended, nontender; no hepatosplenomegaly; bowel sounds are present in all four quadrants. EXTREMITIES: No clubbing, cyanosis, or edema. SKIN: Normal; no rash; no jaundice. Assessment and Plan Plan ASSESSMENT: - Anemia with Hemoccult positive stool. H/H 7.4/23.9 on admission. S/P 2 units of PRBC, now hgb 9.3 Pt denies any GI symptoms or bleeding but does report intermittent vaginal bleeding x 2 years. Of note, she is on Coumadin at home. Her INR is 1.5. This is currently being held in anticipation of GI workup. - Bladder tumors, hematuria and frequency. urology, plan for TURBT once cleared by cardiology - Atrial fibrillation with RVR. Rate controlled. Coumadin on hold at this time. 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 PLAN: - LITZY heart healthy - restart Lovenox in am - Monitor HH - Transfuse as necessary - Supportive care - capsule endoscopy as outpatient, - continue PPI. Becca Arguelles MD Mar 05, 2016 11:37
--- NOTE | 2016-03-05 12:05 | MR ---
cc: JESUS ALBERTO RIGGS M.D. DATE OF 1940 DATE OF PROCEDURE 03/05/2015 PROCEDURE 1. Upper gastrointestinal endoscopy with biopsy and dilation of esophageal stricture. 2. Colonoscopy with fulguration of polyp and AVM in the cecum and snare polypectomy in the sigmoid. INDICATION A 75-year-old lady with anemia, heme-positive stool. PROCEDURE After informing the patient about the procedure and complications, consent was signed. The patient was placed on her left lateral decubitus. Adequate sedation was achieved by propofol. The scope was placed in the mouth, advanced under video guidance to the second portion of the duodenum. The scope was drawn back to the stomach. Retroflexion was performed. Biopsy from the antrum and lesser curve and then a guidewire was passed through the scope and dilator size 17-mm was passed over the guidewire without immediate complication. After that rectal exam was performed. The scope was placed in the rectum, advanced under video guidance to the cecum which was identified by the ileocecal valve and appendiceal orifice. Terminal ileum was examined also. There was AVM in the cecum which was fulgurated and a small polyp, 3-4 mm, which was fulgurated in the cecum also. The scope was drawn back gradually with visualization of the colonic mucosa down to the rectum. There was a 1-cm polyp in the sigmoid removed by a snare and there was diverticulosis throughout the colon. Retroflexion showed small hemorrhoid. The scope was drawn back without any immediate complication. FINDINGS 1. Esophageal stricture, status post dilation. 2. Gastritis. A biopsy was done. 3. Duodenum: Normal. 4. AVM in the cecum. 5. Small polyp in the cecum. 6. One polyp in the sigmoid. 7. A few diverticulosis. 8. Internal hemorrhoids. RECOMMENDATIONS 1. Follow-up biopsy. 2. Continue PPI. 3. Diet as tolerated. 4. May start anticoagulation with close monitoring of hemoglobin tomorrow. 5. Capsule endoscopy as an outpatient. 6. Followup in a few weeks as an outpatient. MD DYAN Wang/BILL 11:43 AM /11:53 AM
--- NOTE | 2016-03-05 15:58 | HHI.PR ---
Subjective Interval History Resting in bed Pleasantly confused Lying comfortably on the bed without any apparent distress they're thinking everybody to help her out and this hospitalization Denies chest pain or shortness of breath No nausea or vomiting No diarrhea. Doesn't remember any blood in her stools No cough or sputum production No fever or chills No nausea or vomiting no melena or brbpr Offers no complaints Review of system for 12 point system otherwise unremarkable Vitals/Results Intake & Output 03/04/16 03/04/16 03/05/16 15:00 23:00 07:00 Intake Total 780 ml 720 ml Output Total 650 ml Balance 130 ml 720 ml Intake Oral 780 ml 720 ml IV Total 0 ml Output Urine Total 650 ml # Voids 4 # Bowel Movements 2 8 Vital Signs Vital Signs Date Time Temp Pulse Resp B/P Pulse Ox O2 Delivery O2 Flow Rate FiO2 03/05/16 12:24 100 Nasal Cannula 2.00 03/05/16 12:00 98.4 88 19 165/87 99 03/05/16 12:00 78 03/05/16 12:00 Nasal Cannula 2.00 21 03/05/16 11:55 74 16 127/66 99 03/05/16 11:43 74 16 130/74 98 03/05/16 11:36 98.0 67 16 129/62 96 03/05/16 08:45 98.3 101 16 111/63 96 03/05/16 08:00 Nasal Cannula 2.00 21 03/05/16 08:00 98.3 101 16 111/63 96 03/05/16 08:00 98 03/05/16 07:00 90 03/05/16 04:00 77 03/05/16 04:00 98.3 82 139/67 03/05/16 04:00 Room Air 03/05/16 00:00 79 03/05/16 00:00 98.5 73 18 154/84 98 03/05/16 00:00 Room Air 03/04/16 20:00 97.9 83 18 121/57 98 03/04/16 20:00 83 03/04/16 20:00 98 Nasal Cannula 2.00 03/04/16 18:00 88 03/04/16 17:00 103 03/04/16 16:00 Room Air 03/04/16 16:00 98.1 84 18 126/82 97 03/04/16 16:00 96 CBC/BMP: 03/05/16 0435 03/05/16 0435 Lab Results Laboratory Tests Test 03/05/16 04:35 White Blood Count 6.0 TH/MM3 Red Blood Count 4.02 MIL/MM3 Hemoglobin 9.2 GM/DL Hematocrit 29.8 % Mean Corpuscular Volume 74.1 FL Mean Corpuscular Hemoglobin 22.9 PG Mean Corpuscular Hemoglobin 30.8 % Concent Red Cell Distribution Width 20.9 % Platelet Count 201 TH/MM3 Mean Platelet Volume 10.2 FL Sodium Level 142 MEQ/L Potassium Level 4.0 MEQ/L Chloride Level 105 MEQ/L Carbon Dioxide Level 28.0 MEQ/L Anion Gap 9 MEQ/L Blood Urea Nitrogen 20 MG/DL Creatinine 1.17 MG/DL Estimat Glomerular Filtration 45 ML/MIN Rate Random Glucose 92 MG/DL Calcium Level 8.4 MG/DL Physical Exam General General Appearance: Well Developed, No Acute Distress, Comfortable Ears & Nose Ears & Nose Exam: Nasal Mucosa Goulds Throat Throat Exam: Oral Mucosa Goulds & Moist Neck Neck Exam: Neck Supple, Trachea Midline Pulmonary Resp Exam: Clear Bilaterally, Breath Sounds Equal Cardiology CV Exam: Good Perfusion, Irregular Gastrointestinal/Abdomen GI Exam: Soft, Non-Tender, Bowel Sounds Present Integumentary Skin Exam: Warm, Dry Neurologic Neuro Exam: Alert, Awake, Speech Clear, Moving All Extremities Neuro Remarks Oriented to place and person. Don't know president month year or date. As the patient it is after her stroke PUD Prophylasis PUD Prophylaxis: Protonix Assessment/Plan Assessment/Plan DIAGNOSTIC IMPRESSION . Shortness of breath likely secondary to a combination of atrial fibrillation with rapid ventricular rate and Anemia. . Atrial fibrillation with rapid ventricular rate. . Anemia possibly rule out GI bleed. . History of recent strokes with severe cognitive deficits and memory loss. . Hx of Intracranial Aneurysm s/p Coiling . History of hypertension . hyperlipidemia. . History of diabetes. . Hx MONTEZ s/p stenting . Hx PAD Plan Continue IV fluid Status post PRBC transfusion follow-up H&H stable Continue PPI GI input appreciated, status post endoscopy showing gastritis polyp and esophageal stricture which was dilated. Recommending start anticholinergic from tomorrow CT abdomen noted On digoxin and carvedilol controlled heart rate keep off coumadin /on lovenox for bridging Continue statin Medications reviewed Labs reviewed Previous notes reviewed Patient should undergo inpatient TURBT due to high need for anticoagulation, which would be hard to do as an outpatient. Discussed with Dr. garcia, he has no time to do it tomorrow so it will be next week. Continue Aricept A.m. labs Discussed with Jamison Mccurdy MD Mar 05, 2016 15:58
--- NOTE | 2016-03-05 17:57 | PD.CONS ---
HPI Chief Complaint vaginal bleeding Date Seen: Mar 05, 2016 Travel History International Travel<30 Days: No Contact w/Intl Traveler<30Days: No Known Affected Area: No History of Present Illness HPI Is a 75-year-old white female para 4 who is in the hospital for atrial flutter fibrillation rapid heart rate symptomatic. He also is a known bladder tumor is being followed by urology and a plan for cystoscopy and biopsy is planned. Her cardiac status cause that to be postponed for a while cardiology is seeing the patient. [employer] being consult for suspected vaginal bleeding the nurses however save the patient is having gross hematuria because of the bladder tumor when she voids she said they see blood and no other time of the seen bleeding the patient denies vaginal bleeding per se Para: 4 : 4 History Past Medical History Narrative Medical stroke in patient's been on Lovenox recently but that was stopped just so we can she can have the procedures done that she's had done , she had a colonoscopy today and cystoscopy is planned for probably tomorrow Allergies-Medications (Allergen,Severity, Reaction): Coded Allergies: Apresoline (Verified Allergy, Mild, itching, 02/27/16) Demerol (Verified Allergy, Unknown, unknown, 02/27/16) Phenergan (Verified Allergy, Unknown, unknown, 02/27/16) Home Meds Active Scripts Warfarin (Coumadin)1 Mg Tab2 Mg PO DAILY #60 TAB Ref 0 Prov:Ever Holley MD 12/30/15 Carvedilol 6.25 Mg Tab6.25 Mg PO BID #60 TAB Ref 0 Prov:Ever Holley MD 12/30/15 Atorvastatin 20 Mg Tab20 Mg PO HS #30 TAB Ref 0 Prov:Ever Holley MD 12/30/15 Aspirin 81 Mg Chew81 Mg CHEW DAILY #30 TAB Ref 0 Prov:Ever Holley MD 12/30/15 Alprazolam (Xanax)0.25 Mg Tab0.25 Mg PO Q8HR PRN (ANXIETY) #60 TAB Ref 0 Prov:Ever Holley MD 12/30/15 Donepezil 10 Mg Tab10 Mg PO HS #30 TAB Ref 0 Prov:Ever Holley MD 12/30/15 Paroxetine (Paxil)10 Mg Tab10 Mg PO DAILY #30 TAB Ref 0 Prov:Ever Holley MD 12/30/15 Reported Medications Glimepiride 2 Mg Tab2 Mg PO DAILY #30 TAB Ref 0 Take with breakfast or first main meal 02/27/16 Memantine (Namenda)5 Mg Tab5 Mg PO BID #60 TAB Ref 0 02/27/16 Carvedilol (Coreg)3.125 Mg Tab3.125 Mg PO BID #60 TAB Ref 0 02/27/16 Discontinued Scripts Insulin Detemir Inj (Levemir Inj)1,000 unit/ 10 ML Vial10 Units SQ HS 30 Days Please dispense as flexipen, if not give with supplies needed. Prov:Ever Holley MD 12/30/15 Sennosides-Docusate Sodium (Senna Plus 8.6-50 mg)1 Tab Tab1 Tab PO DAILY PRN ( CONSTIPATION) #60 TAB Prov:Ever Holley MD 12/30/15 Sitagliptin (Januvia)100 Mg Vlu131 Mg PO DAILY #30 TAB Prov:Ever Holley MD 12/30/15 Physical Exam Narrative GENITOURINARY: External Genitalia: intact and normal in appearance, there is vulvar atrophy secondary to age, no mass or lesion laceration noted blood seen on the perineum : [-] The vagina is also atrophic but there is no blood in the vaginal vault Cervix: [-] Cervix appears normal, there is no cervical motion tenderness on exam Uterus is anteflexed and normal size nontender, there are no adnexal masses on bimanual ,,no pain on bimanual Rectal exam was negative for masses no stool in the vault to sample for guaiac ] Data Data Orders Diaper, Adult Medium Attend Ea (03/04/16 19:11) Chest, Single Ap (03/05/16 ) Consult Gynecology (03/05/16 ) (Hub Use Only)Inp Phy Cons/Ref (03/05/16 ) Diet Heart Healthy (03/05/16 Lunch) Propofol 200 Mg/20 Ml Inj (Diprivan 200 (03/05/16 11:12) Basic Metabolic Panel (Bmp) (03/05/16 15:58) Cbc No Diff, Includes Plts (03/05/16 15:58) ^ Consent (03/05/16 16:42) Npo After Midnight W/ Po Meds (03/06/16 Breakfast) Diet Heart Healthy (03/05/16 Dinner) Labs Laboratory Tests Test 03/05/16 04:35 White Blood Count 6.0 Red Blood Count 4.02 Hemoglobin 9.2 Hematocrit 29.8 Mean Corpuscular Volume 74.1 Mean Corpuscular Hemoglobin 22.9 Mean Corpuscular Hemoglobin 30.8 Concent Red Cell Distribution Width 20.9 Platelet Count 201 Mean Platelet Volume 10.2 Sodium Level 142 Potassium Level 4.0 Chloride Level 105 Carbon Dioxide Level 28.0 Anion Gap 9 Blood Urea Nitrogen 20 Creatinine 1.17 Estimat Glomerular Filtration 45 Rate Random Glucose 92 Calcium Level 8.4 MDM Interpretation(s) Patient is 75-year-old white female para 4 with a [employer] consult for vaginal bleeding. Patient has known bladder tumor in an gross hematuria related to that she's also be hospitalized for evaluation of cardiac issues including atrial flutter and tachycardia [employer] exam is normal today normal external genitalia with some atrophy no blood seen on the outside or in the vagina cervix appears normal there is no cervical motion tenderness the bimanual exam is negative rectal exam negative for mass no stool could be sampled for heme Plan At this time there is no further [employer] evaluation needed. If blood was noted that his from the vagina and would recommend an ultrasound of the uterus to check for endometrial thickness. Patient had a CT of abdomen and pelvis and no mention on the report of any pelvic pathology at this time [employer] will sign off and the may recontact us if true vaginal bleeding is noted or other pelvic pathology related to the [employer] structures is evident Admitting diagnosis: Dyspnea, Anemia, CHF Exacerbation CoMorbid Conditions bladder tumor Diagnosis: vaginal bleeding Patient Instructions: Heart Failure (DC), Home Safety (GEN), Dyspnea (ED), Anemia (DC), Fall Prevention (DC) Warner Cowan II, MD Mar 05, 2016 17:57 that his from the vagina and would recommend an ultrasound of the uterus to check for endometrial thickness. Patient had a CT of abdomen and pelvis and no mention on the report of any pelvic pathology at this time [employer] will sign off and the may recontact us if true vaginal bleeding is noted or other pelvic pathology related to the [employer] structures is evident Admitting diagnosis: Dyspnea, Anemia, CHF Exacerbation CoMorbid Conditions bladder tumor Diagnosis: vaginal bleeding Patient Instructions: Heart Failure (DC), Home Safety (GEN), Dyspnea (ED), Anemia (DC), Fall Prevention (DC) Warner Cowan II, MD Mar 05, 2016 17:57
[2016-03-05 20:29] LABS: BICARBONATE 21.2 MEQ/L (21.0-32.0); POTASSIUM 4.7 MEQ/L (3.5-5.1)
[2016-03-05] MEDS: ATORVASTATIN 20 MG TAB PO SCH (21:57)
[2016-03-05] MEDS: DONEPEZIL HCL 5 MG TAB PO SCH (21:58)
[2016-03-06] VITALS (22 sets, daily range): BP systolic 140–149; BP diastolic 79–84; PULSE 74–112; RESP 16–18; TEMP 97.8–98.3; O2SAT 91–97
[2016-03-06 05:28] LABS: HEMATOCRIT 29.2 % (35.0-46.0); MEAN CELL VOLUME 73.2 FL (80.0-100.0); MEAN CORPUSCULAR HEMOGLOBIN 22.8 PG (27.0-34.0); MEAN CORPUSCULAR HGB CONC 31.1 % (32.0-36.0); PLATELET COUNT 193 TH/MM3 (150-450); RED BLOOD COUNT 3.98 MIL/MM3 (4.00-5.30); RED CELL DISTRIBUTION WIDTH 20.9 % (11.6-17.2)
[2016-03-06 05:35] LABS: REVIEW FLAG FINAL
[2016-03-06] MEDS: INSULIN NovoLIN REGULAR SUPPLEMENTAL SCALE SQ SCH ×4 (06:13→21:50)
[2016-03-06] MEDS ORDERED: DO NOT ADM ANY ANTICOAGULANT DRUGS XX PRN ×2 (08:00→14:15)
[2016-03-06] MEDS ORDERED: ENOXAPARIN SODIUM 30 MG/0.3 ML SYRINGE SQ SCH (09:00)
[2016-03-06] MEDS ORDERED: PROPOFOL 200 MG/20 ML AMP IV ONE (09:07)
[2016-03-06] MEDS ORDERED: ePHEDrine/NS 50 MG/5 ML SYR IV ONE (09:07)
[2016-03-06] MEDS ORDERED: PHENYLEPH/NS 1000 MCG/10 ML SYR IV ONE (09:07)
[2016-03-06] MEDS ORDERED: ONDANSETRON HCL 4 MG/2 ML VIAL IV PUSH ONE (09:07)
[2016-03-06] MEDS: DIGOXIN 0.125 MG TAB PO SCH (09:58)
[2016-03-06] MEDS: PARoxetine HCL 20 MG TAB PO SCH (09:59)
[2016-03-06] MEDS: SODIUM CHLORIDE 0.9% FLUSH 5 ML FLUSH FLUSH SCH ×2 (09:59→21:41)
[2016-03-06] MEDS: CARVEDILOL 6.25 MG TAB PO SCH ×2 (09:59→21:40)
--- NOTE | 2016-03-06 10:21 | HHI.PR ---
Subjective Interval History Resting in bed Patient now she is in the hospital also president is Shena. Patient notices 2017 doesn't know day or month Lying comfortably on the bed without any apparent distress they're thinking everybody to help her out and this hospitalization Denies chest pain or shortness of breath No nausea or vomiting No diarrhea. Doesn't remember any blood in her stools No cough or sputum production No fever or chills No nausea or vomiting no melena or brbpr Offers no complaints Review of system for 12 point system otherwise unremarkable Vitals/Results Intake & Output 03/05/16 03/05/16 03/06/16 15:00 23:00 07:00 Intake Total 400 ml 1120 ml 240 ml Output Total 300 ml 600 ml Balance 400 ml 820 ml -360 ml Intake Oral 620 ml 240 ml IV Total 500 ml Other 400 ml Output Urine Total 300 ml 600 ml # Voids 2 # Bowel Movements 2 2 Vital Signs Vital Signs Date Time Temp Pulse Resp B/P Pulse Ox O2 Delivery O2 Flow Rate FiO2 03/06/16 08:00 98.0 82 18 140/79 94 03/06/16 07:00 89 03/06/16 06:00 74 03/06/16 05:00 81 03/06/16 04:00 80 03/06/16 04:00 98.2 82 16 144/82 91 03/06/16 04:00 94 Room Air 03/06/16 03:00 80 03/06/16 02:00 95 03/06/16 01:54 97 03/06/16 01:00 81 03/06/16 00:00 98.3 95 18 143/83 95 03/06/16 00:00 82 03/06/16 00:00 95 Room Air 03/05/16 23:00 90 03/05/16 22:00 101 03/05/16 21:00 100 03/05/16 20:00 98.3 96 18 147/85 96 03/05/16 20:00 100 03/05/16 20:00 96 Room Air 03/05/16 19:00 103 03/05/16 18:00 114 03/05/16 17:00 118 03/05/16 16:00 87 03/05/16 16:00 Nasal Cannula 2.00 21 03/05/16 16:00 98.3 83 18 156/67 97 03/05/16 15:00 85 03/05/16 14:00 84 03/05/16 13:00 75 03/05/16 12:24 100 Nasal Cannula 2.00 03/05/16 12:00 98.4 88 19 165/87 99 03/05/16 12:00 78 03/05/16 12:00 Nasal Cannula 2.00 21 03/05/16 11:55 74 16 127/66 99 03/05/16 11:43 74 16 130/74 98 03/05/16 11:36 98.0 67 16 129/62 96 CBC/BMP: 03/06/16 0447 03/05/16 1909 Lab Results Laboratory Tests Test 03/05/16 03/06/16 19:09 04:47 Sodium Level 134 MEQ/L Potassium Level 4.7 MEQ/L Chloride Level 103 MEQ/L Carbon Dioxide Level 21.2 MEQ/L Anion Gap 10 MEQ/L Blood Urea Nitrogen 19 MG/DL Creatinine 1.41 MG/DL Estimat Glomerular Filtration 36 ML/MIN Rate Random Glucose 196 MG/DL Calcium Level 8.4 MG/DL White Blood Count 7.0 TH/MM3 Red Blood Count 3.98 MIL/MM3 Hemoglobin 9.1 GM/DL Hematocrit 29.2 % Mean Corpuscular Volume 73.2 FL Mean Corpuscular Hemoglobin 22.8 PG Mean Corpuscular Hemoglobin 31.1 % Concent Red Cell Distribution Width 20.9 % Platelet Count 193 TH/MM3 Mean Platelet Volume 9.9 FL Physical Exam General General Appearance: Well Developed, No Acute Distress, Comfortable Ears & Nose Ears & Nose Exam: Nasal Mucosa [place] Throat Throat Exam: Oral Mucosa [place] & Moist Neck Neck Exam: Neck Supple, Trachea Midline Pulmonary Resp Exam: Clear Bilaterally, Breath Sounds Equal Cardiology CV Exam: Good Perfusion, Irregular Gastrointestinal/Abdomen GI Exam: Soft, Non-Tender, Bowel Sounds Present Integumentary Skin Exam: Warm, Dry Neurologic Neuro Exam: Alert, Awake, Speech Clear, Moving All Extremities Neuro Remarks Oriented to place and person. Don't know president month year or date. As the patient it is after her stroke PUD Prophylasis PUD Prophylaxis: Protonix Assessment/Plan Assessment/Plan DIAGNOSTIC IMPRESSION . Shortness of breath likely secondary to a combination of atrial fibrillation with rapid ventricular rate and Anemia. . Atrial fibrillation with rapid ventricular rate. . Anemia possibly rule out GI bleed. . History of recent strokes with severe cognitive deficits and memory loss. . Hx of Intracranial Aneurysm s/p Coiling . History of hypertension . hyperlipidemia. . History of diabetes. . Hx MONTEZ s/p stenting . Hx PAD Plan Continue IV fluid Status post PRBC transfusion follow-up H&H stable Continue PPI GI input appreciated, status post endoscopy showing gastritis polyp and esophageal stricture which was dilated. Recommending start anticholinergic from tomorrow CT abdomen noted On digoxin and carvedilol controlled heart rate keep off coumadin /on lovenox for bridging. Today on hold for cystoscopy Continue statin Medications reviewed Labs reviewed Previous notes reviewed Patient should undergo inpatient TURBT due to high need for anticoagulation, which would be hard to do as an outpatient. Discussed with Dr. garcia, yesterday again he arranged for cystoscopy today. Continue Aricept A.m. labs Discussed with RN Discussed with patient Jamison Simental MD Mar 06, 2016 10:21
[2016-03-06] MEDS: PANTOPRAZOLE SODIUM 40 MG VIAL IV PUSH SCH ×2 (11:00→21:50)
[2016-03-06] MEDS ORDERED: ceFAZolin INJ 1,000 MG VIAL IV ONE (12:05)
--- NOTE | 2016-03-06 13:40 | PD.OP ---
Operative Report Date of Surgery: Mar 06, 2016 Preoperative Diagnosis: (1) Hematuria (2) Bladder cancer Postoperative Diagnosis: Procedure: cystoscopy, TURBT large of bladder tumor greater than 5 cm Surgeon: Chase Hernandez Travel Clerk(s): N/A. Operation and Findings: See dictated report. Extensive tumor of bladder. All visible tumor resected. De La Paz x 7 days. Chase Hernandez MD Mar 06, 2016 13:39
[2016-03-06] MEDS: BELLADONNA ALKALOIDS/OPIUM 60 MG SUPP RECTAL SCH ×2 (14:23→18:28)
--- NOTE | 2016-03-06 18:02 | MP ---
cc: CHASE KO MD DATE OF SURGERY: 03/06/2016. PREOPERATIVE DIAGNOSIS: 1. Bladder tumors. 2. Gross hematuria. 3. Anemia. 4. Atrial fibrillation. POSTOPERATIVE DIAGNOSIS: 1. Bladder tumors. 2. Gross hematuria. 3. Anemia. 4. Atrial fibrillation. OPERATIVE PROCEDURE PERFORMED: 1. Cystourethroscopy 2. TURBT of large bladder tumor greater than 5 cm. SURGEON: Chase Ko MD. ANESTHESIA: General. COMPLICATIONS: None. PREOPERATIVE ANTIBIOTICS: Ancef 1 gram IV. DRAINS: A 22-[place] three-way De La Paz catheter to gravity drainage. SPECIMENS: Bladder tumor for permanent. ESTIMATED BLOOD LOSS: Less than 10 mL. DISPOSITION: Stable to recovery. INDICATIONS FOR THE PROCEDURE: The patient is a 75-year-old female with significant past medical history including atrial fibrillation on Coumadin who was recently admitted to the hospital with gross hematuria and anemia. She had CT of the abdomen and pelvis without contrast done was found to have large soft filling defects in her bladder consistent with her bladder tumors. She was originally seen approximately a year ago for similar complaints. She had an office cystoscopy done which showed several large bladder tumors in her bladder. However, she was lost to followup and had significant problems with anticoagulation. Currently her Coumadin has been on hold and she has been on bridge with Lovenox since she has been in the hospital. However, her Lovenox has been on hold for several days. The patient is here today for cystoscopy and resection of her bladder tumors. After the risks, benefits, and alternatives were explained, the patient, informed consent was obtained. DESCRIPTION OF THE PROCEDURE IN DETAIL: The patient was properly identified and brought back to the cystoscopy suite where she was laid with supine on the cystoscopy table. Appropriate time-out was performed under the direction of anesthesiology. The patient was intubated and induced under general aesthetic. Preoperative antibiotics were performed and Ancef 1 gram IV was given prior to the start of the procedure. The patient was then placed in the dorsal lithotomy position and prepped and draped in the normal sterile surgical fashion. A 26-[place] continuous sheath with obturator was then gently passed into her bladder per urethra without any difficulty. The obturator was then removed. Pinkish urine returned. I then inserted the bipolar resectoscope. Her bladder was then gently filled. Her entire bladder flow was extensively covered by a very large bladder tumor 6 to 7 cm across. Neither ureteral orifice was initially seen. She was also found to have approximately a 3 cm bladder tumor on the dome of her bladder as well. With the bipolar resectoscope, I was able to resect the bladder tumor on the floor of her bladder including the trigone all the way down to normal bladder mucosa. There was minimal bleeding. At no time did I see the right ureteral orifice; however, I did come across the left ureteral orifice and did resect across it to widen the orifice and resect the tumor. Hemostasis was then achieved. At this time, the entire tumor on the bladder floor had been completely resected and no visible tumor remained on the trigone or the floor of the bladder. This piece of the tumor was then Ellik'd out with the Compressus evacuator and sent off for analysis. I then turned my attention to the 3 cm dome of the bladder. This was then carefully resected down deep into the muscle. It was near several of the air bubbles but I was able to avoid the top of the bladder. Hemostasis again was achieved. There was minimal bleeding. The Compressus evacuator was then used to remove the bladder specimen and it was sent off for permanent. The bladder was then completely drained. A second look was then performed. I then switched to the ____ bar electrode. I then coagulated the entire bases of both tumor beds. Inflow was then turned off. There was no evidence of any bleeding. The bladder was then drained. I then inserted a 22-[place] three-way hematuria catheter. Light pink urine returned. It was then capped off. A bimanual exam was performed at the end of the case and appeared to be normal. The bladder did not appear to be fixed to the vagina. This concluded this portion of the procedure. The patient was extubated and sent to recovery in stable condition. She will be transferred back to the floor. We will start her on B&O suppositories every six hours for bladder spasms. She will need the De La Paz catheter to stay in for at least seven days allowing the bladder to heal. She will then followup as an outpatient. Chase Ko MD EMAna Paula/FAMILIA /3:49 PM /5:46 PM
[2016-03-06] MEDS: DONEPEZIL HCL 5 MG TAB PO SCH (21:40)
[2016-03-06] MEDS: ATORVASTATIN 20 MG TAB PO SCH (21:40)
[2016-03-07] VITALS (25 sets, daily range): BP systolic 112–141; BP diastolic 68–89; PULSE 73–111; RESP 16–18; TEMP 98–98.7; O2SAT 92–96
[2016-03-07] MEDS: BELLADONNA ALKALOIDS/OPIUM 60 MG SUPP RECTAL SCH ×4 (00:25→18:00)
[2016-03-07] MEDS: INSULIN NovoLIN REGULAR SUPPLEMENTAL SCALE SQ SCH ×4 (05:57→20:10)
[2016-03-07 06:50] LABS: BICARBONATE 28.3 MEQ/L (21.0-32.0); POTASSIUM 4.1 MEQ/L (3.5-5.1)
[2016-03-07 07:20] LABS: HEMATOCRIT 31.8 % (35.0-46.0); MEAN CELL VOLUME 74.2 FL (80.0-100.0); MEAN CORPUSCULAR HEMOGLOBIN 22.7 PG (27.0-34.0); MEAN CORPUSCULAR HGB CONC 30.5 % (32.0-36.0); PLATELET COUNT 214 TH/MM3 (150-450); RED BLOOD COUNT 4.28 MIL/MM3 (4.00-5.30); RED CELL DISTRIBUTION WIDTH 20.5 % (11.6-17.2); WHITE BLOOD COUNT 7.2 TH/MM3 (4.0-11.0)
[2016-03-07 07:28] LABS: REVIEW FLAG FINAL
[2016-03-07] MEDS: RESP: ALBUTEROL 2.5 MG/IPRATROPIUM 0.5 MG NEB (PRN) NEB (08:30)
[2016-03-07] MEDS: SODIUM CHLORIDE 0.9% FLUSH 5 ML FLUSH FLUSH SCH ×2 (10:04→20:08)
[2016-03-07] MEDS: CARVEDILOL 6.25 MG TAB PO SCH ×2 (10:04→20:08)
[2016-03-07] MEDS: DIGOXIN 0.125 MG TAB PO SCH (10:05)
[2016-03-07] MEDS: PARoxetine HCL 20 MG TAB PO SCH (10:05)
[2016-03-07] MEDS: PANTOPRAZOLE SODIUM 40 MG VIAL IV PUSH SCH ×2 (11:47→23:17)
[2016-03-07] MEDS: LORazepam 2 MG/ML VIAL IV PRN ×2 (15:45→23:07)
--- NOTE | 2016-03-07 16:13 | HHI.PR ---
Subjective Interval History Resting in bed As per RN at times confused. At present alert oriented to place and person Denies chest pain or shortness of breath No nausea or vomiting No diarrhea. Doesn't remember any blood in her stools No cough or sputum production No fever or chills No nausea or vomiting no melena or brbpr Has itching. Review of system for 12 point system otherwise unremarkable Vitals/Results Intake & Output 03/06/16 03/06/16 03/07/16 15:00 23:00 07:00 Intake Total 550 ml 790 ml 240 ml Output Total 60 ml 800 ml 300 ml Balance 490 ml -10 ml -60 ml Intake Oral 0 ml 240 ml 240 ml IV Total 50 ml 550 ml Other 500 ml Output Urine Total 50 ml 800 ml 300 ml Estimated Blood Loss 10 ml # Voids 1 # Bowel Movements 0 0 Vital Signs Vital Signs Date Time Temp Pulse Resp B/P Pulse Ox O2 Delivery O2 Flow Rate FiO2 03/07/16 14:00 89 03/07/16 13:00 75 03/07/16 12:00 92 Room Air 03/07/16 12:00 84 03/07/16 12:00 98.2 82 16 127/77 92 03/07/16 11:00 73 03/07/16 10:00 107 03/07/16 09:00 108 03/07/16 08:30 96 21 03/07/16 08:00 96 Nasal Cannula 2.00 03/07/16 08:00 84 03/07/16 08:00 98.0 95 18 123/75 96 03/07/16 07:15 103 03/07/16 06:00 111 03/07/16 05:00 111 03/07/16 04:00 92 Room Air 03/07/16 04:00 100 03/07/16 04:00 98.2 100 18 128/89 92 03/07/16 03:00 102 03/07/16 02:00 93 03/07/16 01:00 95 03/07/16 00:00 107 03/07/16 00:00 98.6 107 18 140/81 93 03/07/16 00:00 93 Room Air 03/06/16 23:00 103 03/06/16 22:00 99 03/06/16 21:00 105 03/06/16 20:00 98.3 112 16 147/84 94 03/06/16 20:00 94 Room Air 03/06/16 20:00 112 03/06/16 19:00 101 03/06/16 18:00 88 03/06/16 17:00 80 CBC/BMP: 03/07/16 0553 03/07/16 0553 Lab Results Laboratory Tests Test 03/07/16 05:53 White Blood Count 7.2 TH/MM3 Red Blood Count 4.28 MIL/MM3 Hemoglobin 9.7 GM/DL Hematocrit 31.8 % Mean Corpuscular Volume 74.2 FL Mean Corpuscular Hemoglobin 22.7 PG Mean Corpuscular Hemoglobin 30.5 % Concent Red Cell Distribution Width 20.5 % Platelet Count 214 TH/MM3 Mean Platelet Volume 10.2 FL Sodium Level 138 MEQ/L Potassium Level 4.1 MEQ/L Chloride Level 101 MEQ/L Carbon Dioxide Level 28.3 MEQ/L Anion Gap 9 MEQ/L Blood Urea Nitrogen 16 MG/DL Creatinine 1.22 MG/DL Estimat Glomerular Filtration 43 ML/MIN Rate Random Glucose 151 MG/DL Calcium Level 8.5 MG/DL Physical Exam General General Appearance: Well Developed, No Acute Distress, Comfortable Ears & Nose Ears & Nose Exam: Nasal Mucosa [place] Throat Throat Exam: Oral Mucosa [place] & Moist Neck Neck Exam: Neck Supple, Trachea Midline Pulmonary Resp Exam: Clear Bilaterally, Breath Sounds Equal Cardiology CV Exam: Good Perfusion, Irregular Gastrointestinal/Abdomen GI Exam: Soft, Non-Tender, Bowel Sounds Present Genitourinary Remarks With De La Paz catheter pinkish urine in the back Integumentary Skin Exam: Warm, Dry Neurologic Neuro Exam: Alert, Awake, Speech Clear, Moving All Extremities Neuro Remarks Oriented to place and person. Don't know president month year or date. As the patient it is after her stroke PUD Prophylasis PUD Prophylaxis: Protonix Assessment/Plan Assessment/Plan DIAGNOSTIC IMPRESSION . Shortness of breath likely secondary to a combination of atrial fibrillation with rapid ventricular rate and Anemia. . Atrial fibrillation with rapid ventricular rate. . Anemia possibly rule out GI bleed. . History of recent strokes with severe cognitive deficits and memory loss. . Hx of Intracranial Aneurysm s/p Coiling . History of hypertension . hyperlipidemia. . History of diabetes. . Hx MONTEZ s/p stenting . Hx PAD Plan Continue IV fluid Status post PRBC transfusion follow-up H&H stable Continue PPI GI input appreciated, status post endoscopy showing gastritis polyp and esophageal stricture which was dilated. Restart anticoagulation once okay with urology Status post cystoscopy scope the end TURBT for bladder mass March 06 CT abdomen noted On digoxin and carvedilol controlled heart rate keep off coumadin /on lovenox for bridging. Today on hold for cystoscopy Continue statin Medications reviewed Labs reviewed Stable H&H Improving creatinine Appreciate SECTION GANG WORKER input Benadryl for itching Previous notes reviewed Continue Aricept A.m. labs Discussed with RN Discussed with patient Jamison Simental MD Mar 07, 2016 16:13
[2016-03-07] MEDS: DONEPEZIL HCL 5 MG TAB PO SCH (20:08)
[2016-03-07] MEDS: ATORVASTATIN 20 MG TAB PO SCH (20:08)
[2016-03-07] MEDS: diphenhydrAMINE HCL 25 MG CAP PO PRN (23:06)
[2016-03-08] VITALS (28 sets, daily range): BP systolic 107–162; BP diastolic 51–83; PULSE 64–102; RESP 18–20; TEMP 98–98.6; O2SAT 93–96
[2016-03-08 04:31] LABS: HEMATOCRIT 29.5 % (35.0-46.0); MEAN CELL VOLUME 73.4 FL (80.0-100.0); MEAN CORPUSCULAR HEMOGLOBIN 22.4 PG (27.0-34.0); MEAN CORPUSCULAR HGB CONC 30.6 % (32.0-36.0); PLATELET COUNT 188 TH/MM3 (150-450); RED BLOOD COUNT 4.02 MIL/MM3 (4.00-5.30); RED CELL DISTRIBUTION WIDTH 20.4 % (11.6-17.2); WHITE BLOOD COUNT 11.8 TH/MM3 (4.0-11.0)
[2016-03-08 04:39] LABS: REVIEW FLAG FINAL
[2016-03-08 05:02] LABS: BICARBONATE 28.1 MEQ/L (21.0-32.0); POTASSIUM 4.2 MEQ/L (3.5-5.1)
[2016-03-08] MEDS: INSULIN NovoLIN REGULAR SUPPLEMENTAL SCALE SQ SCH ×4 (05:49→21:00)
[2016-03-08] MEDS: BELLADONNA ALKALOIDS/OPIUM 60 MG SUPP RECTAL SCH ×4 (05:50→18:00)
[2016-03-08] MEDS: DIGOXIN 0.125 MG TAB PO SCH (08:41)
[2016-03-08] MEDS: PARoxetine HCL 20 MG TAB PO SCH (08:41)
[2016-03-08] MEDS: CARVEDILOL 6.25 MG TAB PO SCH ×2 (08:45→20:02)
[2016-03-08] MEDS: SODIUM CHLORIDE 0.9% FLUSH 5 ML FLUSH FLUSH SCH ×2 (08:45→20:02)
[2016-03-08] MEDS: ENOXAPARIN SODIUM 30 MG/0.3 ML SYRINGE SQ SCH (12:37)
[2016-03-08] MEDS: PANTOPRAZOLE SODIUM 40 MG VIAL IV PUSH SCH (12:37)
--- NOTE | 2016-03-08 15:40 | HHI.PR ---
Subjective Interval History Resting in bed As per RN at times confused. At present alert oriented to place and person and knows president Denies chest pain or shortness of breath No nausea or vomiting No diarrhea. Doesn't remember any blood in her stools No cough or sputum production No fever or chills No nausea or vomiting no melena or brbpr No itching. Review of system for 12 point system otherwise unremarkable Vitals/Results Intake & Output 03/07/16 03/07/16 03/08/16 15:00 23:00 07:00 Intake Total 360 ml 480 ml Output Total 300 ml 890 ml Balance 60 ml -410 ml Intake Oral 360 ml 480 ml Output Urine Total 300 ml 890 ml # Bowel Movements 0 0 Vital Signs Vital Signs Date Time Temp Pulse Resp B/P Pulse Ox O2 Delivery O2 Flow Rate FiO2 03/08/16 10:31 93 03/08/16 06:30 92 03/08/16 05:00 89 03/08/16 04:14 93 Room Air 03/08/16 04:14 86 03/08/16 04:00 98.6 89 18 126/60 93 03/08/16 03:00 100 03/08/16 02:00 99 03/08/16 01:00 86 03/08/16 00:00 93 03/08/16 00:00 93 Room Air 03/08/16 00:00 98.6 102 18 130/71 93 03/07/16 23:00 99 03/07/16 22:00 106 03/07/16 21:00 86 03/07/16 20:00 98.6 84 18 112/68 93 03/07/16 20:00 93 Room Air 03/07/16 20:00 80 03/07/16 19:56 21 03/07/16 19:00 84 03/07/16 18:00 74 03/07/16 17:00 107 03/07/16 16:00 96 Room Air 03/07/16 16:00 98.7 82 18 141/81 96 03/07/16 16:00 76 CBC/BMP: 03/08/16 0402 03/08/16 0402 Lab Results Laboratory Tests Test 03/08/16 04:02 White Blood Count 11.8 TH/MM3 Red Blood Count 4.02 MIL/MM3 Hemoglobin 9.0 GM/DL Hematocrit 29.5 % Mean Corpuscular Volume 73.4 FL Mean Corpuscular Hemoglobin 22.4 PG Mean Corpuscular Hemoglobin 30.6 % Concent Red Cell Distribution Width 20.4 % Platelet Count 188 TH/MM3 Mean Platelet Volume 10.4 FL Sodium Level 139 MEQ/L Potassium Level 4.2 MEQ/L Chloride Level 103 MEQ/L Carbon Dioxide Level 28.1 MEQ/L Anion Gap 8 MEQ/L Blood Urea Nitrogen 21 MG/DL Creatinine 1.33 MG/DL Estimat Glomerular Filtration 39 ML/MIN Rate Random Glucose 126 MG/DL Calcium Level 8.4 MG/DL Physical Exam General General Appearance: Well Developed, No Acute Distress, Comfortable Ears & Nose Ears & Nose Exam: Nasal Mucosa [place] Throat Throat Exam: Oral Mucosa [place] & Moist Neck Neck Exam: Neck Supple, Trachea Midline Pulmonary Resp Exam: Clear Bilaterally, Breath Sounds Equal Cardiology CV Exam: Good Perfusion, Irregular Gastrointestinal/Abdomen GI Exam: Soft, Non-Tender, Bowel Sounds Present Genitourinary Remarks With De La Paz catheter pinkish urine in the back Integumentary Skin Exam: Warm, Dry Neurologic Neuro Exam: Alert, Awake, Speech Clear, Moving All Extremities Neuro Remarks Oriented to place and person. Knows president year or date. PUD Prophylasis PUD Prophylaxis: Protonix Assessment/Plan Assessment/Plan DIAGNOSTIC IMPRESSION . Shortness of breath likely secondary to a combination of atrial fibrillation with rapid ventricular rate and Anemia. . Atrial fibrillation with rapid ventricular rate. . Anemia possibly rule out GI bleed. . History of recent strokes with severe cognitive deficits and memory loss. . Hx of Intracranial Aneurysm s/p Coiling . History of hypertension . hyperlipidemia. . History of diabetes. . Hx MONTEZ s/p stenting . Hx PAD Plan Continue IV fluid Status post PRBC transfusion follow-up H&H stable Continue PPI GI input appreciated, status post endoscopy showing gastritis polyp and esophageal stricture which was dilated. Restart anticoagulation as pt has normal looking urine Status post cystoscopy scope the end TURBT for bladder mass March 06 CT abdomen noted On digoxin and carvedilol controlled heart rate if no bleeding may start coumadin / lovenox for bridging. Continue statin Medications reviewed Labs reviewed Stable H&H Improving creatinine Appreciate EFFICIENCY MINER BLASTING input Benadryl for itching Previous notes reviewed Continue Aricept A.m. labs Discussed with RN Discussed with patient Jamison Simental MD Mar 08, 2016 15:40
[2016-03-08] MEDS: ATORVASTATIN 20 MG TAB PO SCH (20:02)
[2016-03-08] MEDS: DONEPEZIL HCL 5 MG TAB PO SCH (20:02)
[2016-03-09] VITALS (27 sets, daily range): BP systolic 106–159; BP diastolic 57–86; PULSE 67–96; RESP 16–18; TEMP 97.2–98.6; O2SAT 95–96
[2016-03-09] MEDS: PANTOPRAZOLE SODIUM 40 MG VIAL IV PUSH SCH ×3 (00:45→22:43)
[2016-03-09] MEDS: ENOXAPARIN SODIUM 30 MG/0.3 ML SYRINGE SQ SCH ×3 (00:45→23:03)
[2016-03-09] MEDS: BELLADONNA ALKALOIDS/OPIUM 60 MG SUPP RECTAL SCH ×5 (06:00→23:03)
[2016-03-09 06:23] LABS: HEMATOCRIT 29.4 % (35.0-46.0); MEAN CELL VOLUME 73.1 FL (80.0-100.0); MEAN CORPUSCULAR HEMOGLOBIN 22.4 PG (27.0-34.0); MEAN CORPUSCULAR HGB CONC 30.6 % (32.0-36.0); PLATELET COUNT 194 TH/MM3 (150-450); RED BLOOD COUNT 4.02 MIL/MM3 (4.00-5.30); RED CELL DISTRIBUTION WIDTH 20.4 % (11.6-17.2); WHITE BLOOD COUNT 8.9 TH/MM3 (4.0-11.0)
[2016-03-09 06:34] LABS: REVIEW FLAG FINAL
[2016-03-09 06:50] LABS: BICARBONATE 28.5 MEQ/L (21.0-32.0); POTASSIUM 3.9 MEQ/L (3.5-5.1)
[2016-03-09] MEDS: INSULIN NovoLIN REGULAR SUPPLEMENTAL SCALE SQ SCH ×4 (07:00→21:00)
[2016-03-09] MEDS: DIGOXIN 0.125 MG TAB PO SCH (09:51)
[2016-03-09] MEDS: CARVEDILOL 6.25 MG TAB PO SCH ×2 (09:51→21:16)
[2016-03-09] MEDS: PARoxetine HCL 20 MG TAB PO SCH (09:52)
[2016-03-09] MEDS: SODIUM CHLORIDE 0.9% FLUSH 5 ML FLUSH FLUSH SCH ×2 (09:53→21:16)
[2016-03-09] MEDS ORDERED: ENOX30P SQ (11:06)
[2016-03-09] MEDS ORDERED: DIGO0.12 PO (11:06)
[2016-03-09] MEDS ORDERED: DONE10TA7 PO (11:06)
[2016-03-09] MEDS ORDERED: COUM1TAB PO (11:06)
[2016-03-09] MEDS ORDERED: NAME5TAB2 PO (11:06)
[2016-03-09] MEDS ORDERED: ASPI81CH CHEW (11:06)
[2016-03-09] MEDS ORDERED: CARV6.25 PO (11:06)
[2016-03-09] MEDS ORDERED: PAXI10TA2 PO (11:06)
[2016-03-09] MEDS ORDERED: ALPR.25 PO (11:06)
[2016-03-09] MEDS ORDERED: GLIM2TAB PO (11:06)
[2016-03-09] MEDS ORDERED: ATOR20TA15 PO (11:06)
--- NOTE | 2016-03-09 11:07 | HHI.FF ---
Face to Face Verification Diagnosis: (1) Vascular dementia (2) Hyperlipidemia (3) PVD (peripheral vascular disease) (4) Depression with anxiety (5) Hypertension (6) MCI (mild cognitive impairment) (7) Atrial fibrillation with RVR (8) Diabetes 1.5, managed as type 2 (9) Impaired mobility and activities of daily living (10) History of CVA (cerebrovascular accident) (11) Acute blood loss anemia (12) Hematuria (13) Dyspnea (14) Guaiac + stool (15) Atrial fibrillation (16) Bladder cancer Physical Therapy Order: Evaluate and Treat Home Health Nursing Order: Medical education Medication education-adverse effect Nursing assessment with vital signs I have seen patient Marcella Raza on 03/09/16. My clinical findings support the need for the requested home health care services because: Limited ability to care for self I certify that my clinical findings support that this patient is homebound because: Unsafe to leave home unassisted Jamison Simental MD Mar 09, 2016 11:07
--- NOTE | 2016-03-09 11:12 | HHI.PR ---
Subjective Interval History Resting in bed As per RN at times confused. At present alert oriented to place and person and knows president Denies chest pain or shortness of breath No nausea or vomiting No diarrhea. Doesn't remember any blood in her stools No cough or sputum production No fever or chills No nausea or vomiting no melena or brbpr No itching. Review of system for 12 point system otherwise unremarkable Vitals/Results Intake & Output 03/08/16 03/08/16 03/09/16 15:00 23:00 07:00 Intake Total 600 ml 240 ml Output Total 450 ml 400 ml Balance 150 ml -160 ml Intake Oral 600 ml 240 ml Output Urine Total 450 ml 400 ml # Bowel Movements 0 Vital Signs Vital Signs Date Time Temp Pulse Resp B/P Pulse Ox O2 Delivery O2 Flow Rate FiO2 03/09/16 08:02 96 21 03/09/16 07:33 80 03/09/16 07:33 96 Room Air 03/09/16 07:33 97.2 80 16 159/86 96 03/09/16 06:00 72 03/09/16 05:01 72 03/09/16 04:00 98.6 74 18 106/57 95 03/09/16 04:00 74 03/09/16 04:00 93 Room Air 03/09/16 03:00 74 03/09/16 02:14 73 03/09/16 01:00 90 03/09/16 00:00 98.6 76 18 144/75 95 03/09/16 00:00 76 03/09/16 00:00 93 Room Air 03/08/16 23:06 93 Room Air 03/08/16 23:06 90 03/08/16 22:00 77 03/08/16 21:00 70 03/08/16 20:00 64 03/08/16 20:00 93 Room Air 03/08/16 20:00 98.6 64 18 141/67 94 03/08/16 19:25 93 21 03/08/16 19:00 64 03/08/16 18:00 77 03/08/16 17:00 79 03/08/16 16:30 95 Room Air 03/08/16 16:00 98.2 68 20 151/83 96 03/08/16 16:00 70 03/08/16 15:00 69 03/08/16 14:00 78 03/08/16 13:00 83 03/08/16 12:15 94 Room Air 03/08/16 12:15 98.0 76 20 107/51 96 03/08/16 12:00 72 CBC/BMP: 03/09/16 0552 03/09/16 0532 Lab Results Laboratory Tests Test 03/09/16 03/09/16 05:32 05:52 Sodium Level 140 MEQ/L Potassium Level 3.9 MEQ/L Chloride Level 104 MEQ/L Carbon Dioxide Level 28.5 MEQ/L Anion Gap 8 MEQ/L Blood Urea Nitrogen 23 MG/DL Creatinine 1.16 MG/DL Estimat Glomerular Filtration 46 ML/MIN Rate Random Glucose 83 MG/DL Calcium Level 8.0 MG/DL White Blood Count 8.9 TH/MM3 Red Blood Count 4.02 MIL/MM3 Hemoglobin 9.0 GM/DL Hematocrit 29.4 % Mean Corpuscular Volume 73.1 FL Mean Corpuscular Hemoglobin 22.4 PG Mean Corpuscular Hemoglobin 30.6 % Concent Red Cell Distribution Width 20.4 % Platelet Count 194 TH/MM3 Mean Platelet Volume 10.0 FL Physical Exam General General Appearance: Well Developed, No Acute Distress, Comfortable Ears & Nose Ears & Nose Exam: Nasal Mucosa [place] Throat Throat Exam: Oral Mucosa [place] & Moist Neck Neck Exam: Neck Supple, Trachea Midline Pulmonary Resp Exam: Clear Bilaterally, Breath Sounds Equal Cardiology CV Exam: Good Perfusion, Irregular Gastrointestinal/Abdomen GI Exam: Soft, Non-Tender, Bowel Sounds Present Genitourinary Remarks With De La Paz catheter within normal color urine in the bag Integumentary Skin Exam: Warm, Dry Neurologic Neuro Exam: Alert, Awake, Speech Clear, Moving All Extremities Neuro Remarks Oriented to place and person. Knows president year or date. PUD Prophylasis PUD Prophylaxis: Protonix Assessment/Plan Assessment/Plan DIAGNOSTIC IMPRESSION . Shortness of breath likely secondary to a combination of atrial fibrillation with rapid ventricular rate and Anemia. . Atrial fibrillation with rapid ventricular rate. . Anemia possibly rule out GI bleed. . History of recent strokes with severe cognitive deficits and memory loss. . Hx of Intracranial Aneurysm s/p Coiling . History of hypertension . hyperlipidemia. . History of diabetes. . Hx MONTEZ s/p stenting . Hx PAD Plan IV fluid Status post PRBC transfusion follow-up H&H stable Continue PPI GI input appreciated, status post endoscopy showing gastritis polyp and esophageal stricture which was dilated. Restart anticoagulation as pt has normal looking urine Status post cystoscopy scope the end TURBT for bladder mass March 06 CT abdomen noted On digoxin and carvedilol controlled heart rate Start on coumadin today / lovenox for bridging. Continue statin Medications reviewed Labs reviewed Stable H&H Improving creatinine Appreciate JUDICIAL REPORTER input Benadryl for itching Previous notes reviewed Continue Aricept Discussed with RN Discussed with patient. Discussed with daughter on phone in detail. Daughter is a nurse in our hospital. She will take patient home. Will discharge patient with home health care. PT/INR to be done daily. Patient will be taken care by Dr. eckert office. Her daughter gives her Lovenox. And she understood that NovoLog should be DC'd once INR is 2 or up. And then PT/INR maybe once or twice a week. Daughter understood all instructions very well. And she will take her to Dr. page's office and the one week for reevaluation and likely taking out of De La Paz catheter. Patient will be discharged with De La Paz catheter. Jamison Simental MD Mar 09, 2016 11:12
--- NOTE | 2016-03-09 11:16 | HHI.DS ---
Discharge Summary Admission Date Feb 27, 2016 at 23:02 Admitting Diagnosis Dyspnea, Anemia, CHF Exacerbation (1) Acute blood loss anemia Diagnosis: Principal (2) Hematuria Diagnosis: Principal (3) Guaiac + stool Diagnosis: Principal (4) Atrial fibrillation Diagnosis: Principal (5) Bladder cancer Diagnosis: Principal (6) Vascular dementia Diagnosis: Principal (7) Hyperlipidemia Diagnosis: Principal (8) PVD (peripheral vascular disease) Diagnosis: Principal (9) Depression with anxiety Diagnosis: Principal (10) Hypertension Diagnosis: Principal (11) MCI (mild cognitive impairment) Diagnosis: Principal (12) History of CVA (cerebrovascular accident) Diagnosis: Principal (13) Atrial fibrillation with RVR Diagnosis: Principal (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 Patient was put on appropriate medication. Patient has A. fib with RVR on admission. Patient was seen and followed by cardiology. Cardiology cleared for procedure. EGD was done. Showing gastritis. And also esophageal stricture dilatation was done. Patient also followed by urology and cystoscopy with TURBT was done. In the meantime her anticoagulation were held. Now back on Lovenox and Coumadin will be started. As patient is overall a stable and okay to discharge by [facility] consultant Jhonny discharge her home with home health care. Patient will go to her daughter's house. Who will take care of her. Daughter is a RN in our hospital. She will give Lovenox. PT/INR as outpatient. Once INR tomorrow DC Lovenox which explained to patient's daughter she understood. CBC/BMP: 03/09/16 0552 03/09/16 0532 Significant Findings Laboratory Tests Test 03/07/16 03/08/16 03/09/16 03/09/16 05:53 04:02 05:32 05:52 Hemoglobin 9.7 GM/DL 9.0 GM/DL 9.0 GM/DL (11.6-15.3) (11.6-15.3) (11.6-15.3) Hematocrit 31.8 % 29.5 % 29.4 % (35.0-46.0) (35.0-46.0) (35.0-46.0) Mean Corpuscular Volume 74.2 FL 73.4 FL 73.1 FL (80.0-100.0) (80.0-100.0) (80.0-100.0) Mean Corpuscular Hemoglobin 22.7 PG 22.4 PG 22.4 PG (27.0-34.0) (27.0-34.0) (27.0-34.0) Mean Corpuscular Hemoglobin 30.5 % 30.6 % 30.6 % Concent (32.0-36.0) (32.0-36.0) (32.0-36.0) Red Cell Distribution Width 20.5 % 20.4 % 20.4 % (11.6-17.2) (11.6-17.2) (11.6-17.2) Creatinine 1.22 MG/DL 1.33 MG/DL 1.16 MG/DL (0.50-1.00) (0.50-1.00) (0.50-1.00) Estimat Glomerular Filtration 43 ML/MIN (>89) 39 ML/MIN (>89) 46 ML/MIN (>89) Rate Random Glucose 151 MG/DL 126 MG/DL (74-106) (74-106) White Blood Count 11.8 TH/MM3 (4.0-11.0) Blood Urea Nitrogen 21 MG/DL (7-18) 23 MG/DL (7-18) Calcium Level 8.4 MG/DL 8.0 MG/DL (8.5-10.1) (8.5-10.1) Pt Condition on Discharge: Good Discharge Disposition: Disch w/ Home Health Serv Discharge Instructions DIET: Follow Instructions for: Diabetic Diet Activities you can perform: Weight Bearing as Tran Follow up Referrals: Cardiology - 2 Weeks PCP Follow-up - 1 Week Urology - 1 Week New Medications: Carvedilol (Coreg) 6.25 Mg Tab 12.5 MG PO BID arrhythmia #60 TAB Digoxin (Digoxin) 0.125 Mg Tab 0.125 MG PO DAILY arrhythmia #30 TAB Enoxaparin Inj (Lovenox Inj) 30 Mg/0.3 Ml Syr 30 MG SQ Q12H CVA #14 INJECTION Continued Medications: Alprazolam (Xanax) 0.25 Mg Tab 0.25 MG PO Q8HR PRN ANXIETY #60 Ref 0 TAB (This prescription has been renewed) Aspirin (Aspirin) 81 Mg Chew 81 MG CHEW DAILY CVA #30 Ref 0 TAB (This prescription has been renewed) Atorvastatin (Atorvastatin) 20 Mg Tab 20 MG PO HS Cholesterol Management #30 Ref 0 TAB (This prescription has been renewed) Donepezil (Donepezil) 10 Mg Tab 10 MG PO HS Dementia #30 Ref 0 TAB (This prescription has been renewed) Glimepiride (Glimepiride) 2 Mg Tab 2 MG PO DAILY Take with breakfast or first main meal Blood Sugar Management #30 Ref 0 TAB (This prescription has been renewed) Memantine (Namenda) 5 Mg Tab 5 MG PO BID Alzheimer Disease #60 Ref 0 TAB (This prescription has been renewed) Paroxetine (Paxil) 10 Mg Tab 10 MG PO DAILY depression #30 Ref 0 TAB (This prescription has been renewed) Warfarin (Coumadin) 1 Mg Tab 2 MG PO DAILY Prevent Blood Clot #60 Ref 0 TAB (This prescription has been renewed) Discontinued Medications: Carvedilol (Carvedilol) 6.25 Mg Tab 6.25 MG PO BID #60 Ref 0 TAB Carvedilol (Coreg) 3.125 Mg Tab 3.125 MG PO BID #60 Ref 0 TAB Jamison Simental MD Mar 09, 2016 11:16
[2016-03-09 16:18] LABS: PROTHROMBIN TIME - PATIENT 11.6 SEC (9.8-11.6)
[2016-03-09] MEDS ORDERED: WARFARIN SOD 4 MG TAB PO ONE (17:00)
[2016-03-09] MEDS: ATORVASTATIN 20 MG TAB PO SCH (21:15)
[2016-03-09] MEDS: diphenhydrAMINE HCL 25 MG CAP PO PRN (21:15)
[2016-03-09] MEDS: DONEPEZIL HCL 5 MG TAB PO SCH (21:16)
[2016-03-10] VITALS (9 sets, daily range): BP systolic 114–164; BP diastolic 76–80; PULSE 73–84; RESP 16–18; TEMP 97.5–98; O2SAT 95–96
[2016-03-10] MEDS: BELLADONNA ALKALOIDS/OPIUM 60 MG SUPP RECTAL SCH ×2 (05:05→12:00)
[2016-03-10] MEDS: INSULIN NovoLIN REGULAR SUPPLEMENTAL SCALE SQ SCH ×2 (06:43→12:28)
--- NOTE | 2016-03-10 08:51 | HHI.PR ---
Subjective Interval History Resting in bed without any apparent distress. Just woke up As per RN at times confused. At present alert oriented to person and knows president Denies chest pain or shortness of breath No nausea or vomiting No diarrhea. Doesn't remember any blood in her stools No cough or sputum production No fever or chills No nausea or vomiting no melena or brbpr No itching. Review of system for 12 point system otherwise unremarkable Vitals/Results Intake & Output 03/09/16 03/09/16 03/10/16 15:00 23:00 07:00 Intake Total 750 ml 240 ml Output Total 300 ml 750 ml Balance 450 ml -510 ml Intake Oral 750 ml 240 ml Output Urine Total 300 ml 750 ml # Bowel Movements 2 2 Vital Signs Vital Signs Date Time Temp Pulse Resp B/P Pulse Ox O2 Delivery O2 Flow Rate FiO2 03/10/16 07:54 95 21 03/10/16 07:14 97.5 82 18 164/76 96 03/10/16 07:14 82 03/10/16 07:14 96 Room Air 03/10/16 06:00 84 03/10/16 05:00 77 03/10/16 04:30 96 Room Air 03/10/16 04:00 98.0 75 16 138/80 96 03/10/16 04:00 73 03/10/16 03:00 77 03/10/16 02:00 78 03/10/16 01:00 80 03/10/16 00:10 96 Room Air 03/10/16 00:00 82 03/10/16 00:00 97.8 73 16 114/78 96 03/09/16 23:00 84 03/09/16 22:00 80 03/09/16 21:00 83 03/09/16 20:25 95 Room Air 03/09/16 20:00 81 03/09/16 20:00 98.0 67 16 117/77 95 03/09/16 19:00 83 03/09/16 18:00 77 03/09/16 17:00 96 03/09/16 16:00 95 03/09/16 15:50 96 Room Air 03/09/16 15:50 98.0 70 16 151/83 95 03/09/16 15:00 76 03/09/16 14:00 86 03/09/16 13:00 81 03/09/16 12:30 95 Room Air 03/09/16 12:30 97.8 80 16 141/84 95 03/09/16 12:00 80 03/09/16 11:00 85 03/09/16 10:00 85 03/09/16 09:00 74 CBC/BMP: 03/09/16 0552 03/09/16 0532 Lab Results Laboratory Tests Test 03/09/16 15:16 Prothrombin Time 11.6 SEC Prothromb Time International 1.0 RATIO Ratio Physical Exam General General Appearance: Well Developed, No Acute Distress, Comfortable Ears & Nose Ears & Nose Exam: Nasal Mucosa [place] Throat Throat Exam: Oral Mucosa [place] & Moist Neck Neck Exam: Neck Supple, Trachea Midline Pulmonary Resp Exam: Clear Bilaterally, Breath Sounds Equal Cardiology CV Exam: Good Perfusion, Irregular Gastrointestinal/Abdomen GI Exam: Soft, Non-Tender, Bowel Sounds Present Genitourinary Remarks With De La Paz catheter within normal color urine in the bag Integumentary Skin Exam: Warm, Dry Neurologic Neuro Exam: Alert, Awake, Speech Clear, Moving All Extremities Neuro Remarks Oriented to place and person. Knows president year or date. PUD Prophylasis PUD Prophylaxis: Protonix Assessment/Plan Assessment/Plan DIAGNOSTIC IMPRESSION . Shortness of breath likely secondary to a combination of atrial fibrillation with rapid ventricular rate and Anemia. . Atrial fibrillation with rapid ventricular rate. . Anemia possibly rule out GI bleed. . History of recent strokes with severe cognitive deficits and memory loss. . Hx of Intracranial Aneurysm s/p Coiling . History of hypertension . hyperlipidemia. . History of diabetes. . Hx MONTEZ s/p stenting . Hx PAD Plan IV fluid Status post PRBC transfusion follow-up H&H stable Continue PPI GI input appreciated, status post endoscopy showing gastritis polyp and esophageal stricture which was dilated. Restarted anticoagulation as pt has normal looking urine Status post cystoscopy scope the end TURBT for bladder mass March 06 CT abdomen noted On digoxin and carvedilol controlled heart rate Start on coumadin today / lovenox for bridging. Continue statin Medications reviewed Labs reviewed Stable H&H Improving creatinine Appreciate MACHINE FELLER input Benadryl for itching Previous notes reviewed Continue Aricept Discussed with RN Discussed with patient. Discussed with daughter on phone in detail yesterday. Daughter is a nurse in our hospital. She will take patient home. Will discharge patient with home health care. PT/INR to be done daily. Patient will be taken care by Dr. eckert office. Her daughter gives her Lovenox. And she understood that NovoLog should be DC'd once INR is 2 or up. And then PT /INR maybe once or twice a week. Daughter understood all instructions very well. And she will take her to Dr. page's office and the one week for reevaluation and likely taking out of De La Paz catheter. Patient will be discharged with De La Paz catheter. DC home today. Jamison Simental MD Mar 10, 2016 08:50
[2016-03-10] MEDS: SODIUM CHLORIDE 0.9% FLUSH 5 ML FLUSH FLUSH SCH (09:00)
[2016-03-10] MEDS: PANTOPRAZOLE SODIUM 40 MG VIAL IV PUSH SCH (11:00)
[2016-03-10] MEDS: CARVEDILOL 6.25 MG TAB PO SCH (12:26)
[2016-03-10] MEDS: PARoxetine HCL 20 MG TAB PO SCH (12:26)
[2016-03-10] MEDS: DIGOXIN 0.125 MG TAB PO SCH (12:26)
[2016-03-10] MEDS: ENOXAPARIN SODIUM 30 MG/0.3 ML SYRINGE SQ SCH (12:33)
== END 2016-03-10 14:49 | disposition home health service (06) | DRG 669 ==
LOC: NEPC 20:51 → NEDA 23:02 → N06B 02-28 00:39 → N06A 02-28 21:11 → HCIS 02-29 13:00
PROVIDERS: ADMIT Specialist; ATTEND Specialist
PROC: 30233N1 Transfusion of Nonautologous Red Blood Cells into Peripheral Vein, Percutaneous Approach (ICD-10-PCS; 2016-02-27)
PROC: 0D758ZZ Dilation of Esophagus, Via Natural or Artificial Opening Endoscopic (ICD-10-PCS; 2016-03-05)
PROC: 0DBH8ZX Excision of Cecum, Via Natural or Artificial Opening Endoscopic, Diagnostic (ICD-10-PCS; 2016-03-05)
PROC: 0DBN8ZX Excision of Sigmoid Colon, Via Natural or Artificial Opening Endoscopic, Diagnostic (ICD-10-PCS; 2016-03-05)
PROC: 0DB68ZX Excision of Stomach, Via Natural or Artificial Opening Endoscopic, Diagnostic (ICD-10-PCS; 2016-03-05 11:00)
PROC: 0TBB8ZZ Excision of Bladder, Via Natural or Artificial Opening Endoscopic (ICD-10-PCS; principal; 2016-03-06 11:54)
DX: C67.8 Malignant neoplasm of overlapping sites of bladder (principal); D62 Acute posthemorrhagic anemia; N13.30 Unspecified hydronephrosis; J90 Pleural effusion, not elsewhere classified; I50.9 Heart failure, unspecified; K22.2 Esophageal obstruction; I48.0 Paroxysmal atrial fibrillation; F41.9 Anxiety disorder, unspecified; E78.00 Pure hypercholesterolemia, unspecified; K21.9 Gastro-esophageal reflux disease without esophagitis; E11.9 Type 2 diabetes mellitus without complications; I10 Essential (primary) hypertension; E78.5 Hyperlipidemia, unspecified; I73.9 Peripheral vascular disease, unspecified; R41.3 Other amnesia; K57.30 Diverticulosis of large intestine without perforation or abscess without bleeding; I69.311 Memory deficit following cerebral infarction; I69.398 Other sequelae of cerebral infarction; D12.0 Benign neoplasm of cecum; D12.5 Benign neoplasm of sigmoid colon; K29.70 Gastritis, unspecified, without bleeding; K57.90 Diverticulosis of intestine, part unspecified, without perforation or abscess without bleeding; K64.8 Other hemorrhoids; F01.50 Vascular dementia, unspecified severity, without behavioral disturbance, psychotic disturbance, mood disturbance, and anxiety; F41.8 Other specified anxiety disorders; Z79.01 Long term (current) use of anticoagulants
CPT/HCPCS: 36430; 71010; 74176; 76937; 80048; 80053; 82550; 82607; 82728; 82948; 83540; 83550; 83690; 83735; 83880; 84484; 85007; 85014; 85018; 85025; 85027; 85044; 85379; 85610; 85730; 86850; 86900; 86901; 86920; 86922; 88305; 88307; 88312; 93005; 94640; 94664; C1769; C9113; J0131; J0690; J1170; J1650; J1940; J2060; J2370; J2405; J7614; P9016; Q9963

== ENCOUNTER 2016-04-02 15:53 | Emergency (ER) | payer MEDICARE ==
[~2016-04-02] VITALS: Ht 162.6 cm; Wt 55.0 kg
[~2016-04-02 15:53] MED LIST changes: -3-IN3MIS; +CARV6.25 PO; -CARV6.252 PO; +DIGO0.12 PO; +ENOX30P SQ; +GLIM2TAB PO; -LEVEMIR SQ; +NAME5TAB2 PO; -SENN1TAB PO; -SITA1TAB2 PO; -WALKER ROLLING; -WHEEMIS3 XX
[2016-04-02 16:25] VITALS: BP 151/67; PULSE 75; RESP 18; TEMP 97.6; O2SAT 95
--- NOTE | 2016-04-02 16:43 | PD ---
HPI Chief Complaint: Fall Time Seen by Provider: 16:15 Travel History International Travel<30 days: No Contact w/Intl Traveler<30days: No Traveled to known affect area: No History of Present Illness HPI 75-year-old female with history of dementia, presents to the ER today from assisted care facility, according to her daughter, patient had a fall at the facility. Patient does not remember what happened. She apparently had complained of hip pain. Modifying Factors: None Associated Signs & Symptoms: Fall, left hip pain Risk Factors: Elderly, demented PFSH Past Medical History Hx Anticoagulant Therapy: Yes Arthritis: No Asthma: No Atrial Fibrillation: Yes Autoimmune Disease: No Anxiety: Yes Depression: No Heart Rhythm Problems: Yes (atrial fibrillation for past couple years) Cancer: Yes (BLADDER CA ) Cardiovascular Problems: Yes (AFIB RVR) High Cholesterol: Yes Chemotherapy: No Chest Pain: No Congestive Heart Failure: Yes COPD: No Cerebrovascular Accident: Yes Diabetes: Yes Patient Takes Glucophage: Yes Endocrine: No GERD: Yes Genitourinary: Yes (HEMATURIA) Hiatal Hernia: No Hypertension: Yes Immune Disorder: No Kidney Stones: No Musculoskeletal: Yes (fractured pelvis 2014) Neurologic: Yes (aneurysm) Reproductive: No Respiratory: Yes (CHF) Migraines: No Radiation Therapy: No Renal Failure: No Seizures: No Sickle Cell Disease: No Sleep Apnea: No Thyroid Disease: No Ulcer: No Tetanus Vaccination: Unknown Menopausal: Yes : 5 Para: 3 Past Surgical History Abdominal Surgery: No AICD: No Arteriovenous Shunt: No Cardiac Surgery: Yes (CEA, RLE FEMPOP) Ear Surgery: No Endocrine Surgery: No Eye Surgery: Yes (cataracts) Genitourinary Surgery: Yes (renal stent) Gynecologic Surgery: No Insulin Pump: No Joint Replacement: No Neurologic Surgery: Yes (aneurysm repair) Oral Surgery: No Pacemaker: No Thoracic Surgery: No Other Surgery: Yes (fem pop bypass ) Social History Alcohol Use: No Tobacco Use: No Substance Use: No Allergies-Medications (Allergen,Severity, Reaction): Coded Allergies: Apresoline (Verified Allergy, Mild, itching, 02/27/16) Demerol (Verified Allergy, Unknown, unknown, 02/27/16) Phenergan (Verified Allergy, Unknown, unknown, 02/27/16) Reported Meds & Prescriptions Reported Meds & Active Scripts Active Lovenox Inj (Enoxaparin Sodium) 30 Mg/0.3 Ml Syr 30 Mg SQ Q12H Digoxin 0.125 Mg Tab 0.125 Mg PO DAILY Coreg (Carvedilol) 6.25 Mg Tab 12.5 Mg PO BID Glimepiride 2 Mg Tab 2 Mg PO DAILY Take with breakfast or first main meal Namenda (Memantine) 5 Mg Tab 5 Mg PO BID Coumadin (Warfarin) 1 Mg Tab 2 Mg PO DAILY Atorvastatin (Atorvastatin Calcium) 20 Mg Tab 20 Mg PO HS Aspirin 81 Mg Chew 81 Mg CHEW DAILY Xanax (Alprazolam) 0.25 Mg Tab 0.25 Mg PO Q8HR PRN Donepezil 10 Mg Tab 10 Mg PO HS Paxil (Paroxetine HCl) 10 Mg Tab 10 Mg PO DAILY Review of Systems Except as stated in HPI: all other systems reviewed are Neg Physical Exam Narrative GENERAL: Well-nourished, well-developed elderly white female patient in no acute distress. Awake, not oriented. SKIN: Warm and dry. HEAD: Normocephalic. EYES: No scleral icterus. No injection or drainage. NECK: Supple, trachea midline. CARDIOVASCULAR: Regular rate and rhythm without murmurs, gallops, or rubs. RESPIRATORY: Breath sounds equal bilaterally. No accessory muscle use. GASTROINTESTINAL: Abdomen soft, non-tender, nondistended. Pelvis: Stable, mildly tender palpation on the left hip. Nontender range of motion of both hips. MUSCULOSKELETAL: No cyanosis, or edema. BACK: Nontender without obvious deformity. No CVA tenderness. EXTREMITIES: No clubbing, cyanosis, or edema. No joint tenderness, effusion, or edema noted. Data Data Last Documented VS Vital Signs Date Time Temp Pulse Resp B/P Pulse Ox O2 Delivery O2 Flow Rate FiO2 04/02/16 16:34 77 18 94 Room Air 04/02/16 16:25 97.6 151/67 Orders Electrocardiogram (04/02/16 16:15) Complete Blood Count With Diff (04/02/16 16:15) Basic Metabolic Panel (Bmp) (04/02/16 16:15) Ckmb (Isoenzyme) Profile (04/02/16 16:15) Troponin I (04/02/16 16:15) Prothrombin Time / Inr (Pt) (04/02/16 16:15) Act Partial Throm Time (Ptt) (2/2/17 16:15) Urinalysis - C+S If Indicated (04/02/16 16:15) Magnesium (Mg) (04/02/16 16:15) Chest, Single Ap (04/02/16 16:15) Ct Brain W/O Iv Contrast(Rout) (04/02/16 16:15) Hip, Uni(Ap&Lat) W Ap Pelvis (04/02/16 16:15) Urine Culture (04/02/16 16:40) CKMB (04/02/16 16:40) CKMB% (04/02/16 16:40) Blood Culture (04/02/16 17:59) Piperacil-Tazo 4.5 Gm Premix (Zosyn 4.5 (04/02/16 17:59) Labs Laboratory Tests Test 04/02/16 16:40 White Blood Count 7.2 TH/MM3 Red Blood Count 4.07 MIL/MM3 Hemoglobin 10.6 GM/DL Hematocrit 29.8 % Mean Corpuscular Volume 73.4 FL Mean Corpuscular Hemoglobin 26.1 PG Mean Corpuscular Hemoglobin 35.6 % Concent Red Cell Distribution Width 21.1 % Platelet Count 315 TH/MM3 Mean Platelet Volume 10.7 FL Neutrophils (%) (Auto) 53.2 % Lymphocytes (%) (Auto) 30.2 % Monocytes (%) (Auto) 10.7 % Eosinophils (%) (Auto) 4.9 % Basophils (%) (Auto) 1.0 % Neutrophils # (Auto) 3.8 TH/MM3 Lymphocytes # (Auto) 2.2 TH/MM3 Monocytes # (Auto) 0.8 TH/MM3 Eosinophils # (Auto) 0.4 TH/MM3 Basophils # (Auto) 0.1 TH/MM3 CBC Comment DIFF FINAL Differential Comment Prothrombin Time 26.3 SEC Prothromb Time International 2.3 RATIO Ratio Activated Partial 34.6 SEC Thromboplast Time Urine Color LIGHT-YELLOW Urine Turbidity HAZY Urine pH 5.5 Urine Specific [place] 1.017 Urine Protein 30 mg/dL Urine Glucose (UA) 1000 mg/dL Urine Ketones NEG mg/dL Urine Occult Blood SMALL Urine Nitrite NEG Urine Bilirubin NEG Urine Urobilinogen LESS THAN 2.0 MG/DL Urine Leukocyte Esterase LARGE Urine RBC 20 /hpf Urine WBC 102 /hpf Urine Squamous Epithelial 2 /hpf Cells Urine Bacteria RARE /hpf Microscopic Urinalysis Comment CULTURE INDICATED Sodium Level 132 MEQ/L Potassium Level 5.6 MEQ/L Chloride Level 100 MEQ/L Carbon Dioxide Level 15.8 MEQ/L Anion Gap 16 MEQ/L Blood Urea Nitrogen 24 MG/DL Creatinine 1.35 MG/DL Estimat Glomerular Filtration 38 ML/MIN Rate Random Glucose 345 MG/DL Calcium Level 8.3 MG/DL Magnesium Level 2.2 MG/DL Total Creatine Kinase 192 U/L Creatine Kinase MB LESS THAN 0.5 NG/ML Troponin I LESS THAN 0.02 NG/ML MDM Medical Decision Making Medical Screen Exam Complete: Yes Emergency Medical Condition: Yes Medical Record Reviewed: Yes Interpretation(s) Laboratory Tests Test 04/02/16 16:40 Hemoglobin 10.6 GM/DL (11.6-15.3) Hematocrit 29.8 % (35.0-46.0) Mean Corpuscular Volume 73.4 FL (80.0-100.0) Mean Corpuscular Hemoglobin 26.1 PG (27.0-34.0) Red Cell Distribution Width 21.1 % (11.6-17.2) Monocytes (%) (Auto) 10.7 % (0.0-8.0) Eosinophils (%) (Auto) 4.9 % (0.0-4.0) Prothrombin Time 26.3 SEC (9.8-11.6) Activated Partial 34.6 SEC Thromboplast Time (24.3-30.1) Urine Turbidity HAZY (CLEAR) Urine Protein 30 mg/dL (NEG-TRACE) Urine Glucose (UA) 1000 mg/dL (NEG) Urine Occult Blood SMALL (NEG) Urine Leukocyte Esterase LARGE (NEG) Urine RBC 20 /hpf (0-3) Urine WBC 102 /hpf (0-5) Urine Bacteria RARE /hpf (NONE) Sodium Level 132 MEQ/L (136-145) Potassium Level 5.6 MEQ/L (3.5-5.1) Carbon Dioxide Level 15.8 MEQ/L (21.0-32.0) Anion Gap 16 MEQ/L (5-15) Blood Urea Nitrogen 24 MG/DL (7-18) Creatinine 1.35 MG/DL (0.50-1.00) Estimat Glomerular Filtration 38 ML/MIN (>89) Rate Random Glucose 345 MG/DL (74-106) Calcium Level 8.3 MG/DL (8.5-10.1) Creatine Kinase MB LESS THAN 0.5 NG/ML (0.5-3.6) Troponin I LESS THAN 0.02 NG/ML (0.02-0.05) Last 24 hours Impressions Hip and Pelvis X-Ray 04/02/165 Signed Impressions: Service Date/Time: April 16:54 - CONCLUSION: Left hip and pelvis series within normal limits. Franklyn Musa MD Head CT 04/02/161614 Signed Impressions: Service Date/Time: April 17:30 - CONCLUSION: 1. Prominent chronic white matter hypodensity indicating chronic ischemic change. 2. Posterior occipital and cerebellar encephalomalacia matching the distribution of infarcts seen on studies of November 2015. 3. No acute intracranial findings identified. 4. 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 Franklyn Musa MD Chest X-Ray 04/02/161614 Signed Impressions: Service Date/Time: April 16:54 - CONCLUSION: 1. Right upper lung nodular density. Recommend chest CT without contrast to evaluate for pulmonary nodule. 2. Mildly enlarged cardiac silhouette unchanged. Franklyn Musa MD Differential Diagnosis Fallacute intracranial injuries versus hip fractures versus contusions Narrative Course Lab work did not show significant acute issues. She has chronic renal disease. She does have a UTI which I plan to treat. IV antibiotics were given in the ER cultures are drawn. By mouth antibiotics to follow. CT of the brain and x- rays did not reveal any signs of acute injuries. At this point, I have discussed the findings with patient's daughter and she states understanding. Planning to release the patient with follow-up to primary care doctor. She should return for any worsening in disorientation, fevers, or new symptoms as needed. Fall precautions at home. Diagnosis Primary Impression: UTI (urinary tract infection) Additional Impression: Fall at home Med/Other Pt SpecificInfo: Prescription(s) given Scripts Cephalexin (Keflex)500 Mg [id number] Mg PO Q8H #30 CAP Ref 0 Prov:Marielena Grover MD 04/02/16 Disposition: 03 DISCHARGE TO SNF Condition: Stable Marielena Grover MD Apr 02, 2016 16:43
[2016-04-02 17:11] LABS: BACTERIA, URINE RARE /hpf; BLOOD, URINE SMALL (NEG); COMMENT (UR) CULTURE INDICATED; CULTURE IF INDICATED CULTURE INDICATED; GLUCOSE,URINE 1000 mg/dL (NEG); KETONE, URINE NEG (NEG); NITRITE,URINE NEG (NEG); PH, URINE 5.5 (5.0-8.5); SQUAMOUS EPITHELIAL CELL URINE 2 /hpf (0-5); URINE COLOR LIGHT-YELLOW (YELLW/STRAW)
[2016-04-02 17:13] LABS: AUTOMATED NEUTROPHIL # 3.8 TH/MM3 (1.8-7.7); BASOPHIL # 0.1 TH/MM3 (0-0.2); EOSINOPHIL # 0.4 TH/MM3 (0-0.4); EOSINOPHIL % 4.9 % (0.0-4.0); HEMATOCRIT 29.8 % (35.0-46.0); HEMO FLAGS DIFF FINAL; LYMPH % 30.2 % (9.0-44.0); LYMPHOCYTE # 2.2 TH/MM3 (1.0-4.8); MEAN CELL VOLUME 73.4 FL (80.0-100.0); MEAN CORPUSCULAR HEMOGLOBIN 26.1 PG (27.0-34.0); MEAN CORPUSCULAR HGB CONC 35.6 % (32.0-36.0); MONO % 10.7 % (0.0-8.0); NEUT % 53.2 % (16.0-70.0); PLATELET COUNT 315 TH/MM3 (150-450); RED BLOOD COUNT 4.07 MIL/MM3 (4.00-5.30); RED CELL DISTRIBUTION WIDTH 21.1 % (11.6-17.2); WHITE BLOOD COUNT 7.2 TH/MM3 (4.0-11.0)
--- NOTE | 2016-04-02 17:23 | RADRPT ---
EXAM DATE/TIME: 04/02/2016 16:54 [facility] COMPARISON: CHEST SINGLE AP, March 05, 2016, 9:20. INDICATIONS : Fall. Weakness. MEDICAL HISTORY : None. SURGICAL HISTORY : None. ENCOUNTER: Initial ACUITY: 1 day PAIN SCORE: 5/10 LOCATION: Bilateral chest FINDINGS: Single AP view of the chest. 1.7 cm nodular density in the right upper lung zone. Lungs otherwise kailey ar. Cardiac silhouette is mildly enlarged. No evidence of pleural effusion or pneumothorax. Internal fixation hardware at the right clavicle. CONCLUSION: 1. Right upper lung nodular density. Recommend chest CT without contrast to evaluate for pulmonary no dule. 2. Mildly enlarged cardiac silhouette unchanged. Franklyn Musa MD on April 02, 2016 at 17:21 Board Certified Radiologist. This report was verified electronically.
--- NOTE | 2016-04-02 17:25 | RADRPT ---
EXAM DATE/TIME: 04/02/2016 16:54 [facility] COMPARISON: No previous studies available for comparison. INDICATIONS : Fall. Left hip pain. MEDICAL HISTORY : None. SURGICAL HISTORY : None. ENCOUNTER: Initial ACUITY: 1 day PAIN SCORE: 7/10 LOCATION: Left pelvis FINDINGS: 3 views of the pelvis and left hip. Bone alignment within normal limits. No evidence of fracture. No evidence of joint narrowing. CONCLUSION: Left hip and pelvis series within normal limits. Franklyn Musa MD on April 02, 2016 at 17:22 Board Certified Radiologist. This report was verified electronically.
[2016-04-02 17:48] LABS: ANION GAP 16 MEQ/L (5-15); BICARBONATE 15.8 MEQ/L (21.0-32.0); CHLORIDE 100 MEQ/L (98-107); CREATINE KINASE 192 U/L (26-192); GLOMERULAR FILTRATION RATE 38 ML/MIN (>89); MAGNESIUM 2.2 MG/DL (1.5-2.5); SODIUM (NA) 132 MEQ/L (136-145)
[2016-04-02 17:56] LABS: BLOOD UREA NITROGEN 24 MG/DL (7-18); POTASSIUM 5.6 MEQ/L (3.5-5.1)
[2016-04-02] MEDS ORDERED: PIPERACIL-TAZO 4.5 GM PREMIX 100 ML IV STA (17:59)
[2016-04-02 18:08] LABS: CKMB LESS THAN 0.5 NG/ML (0.5-3.6)
[2016-04-02 18:10] LABS: APTT (PATIENT) 34.6 SEC (24.3-30.1); INTERNATIONAL NORMALIZED RATIO 2.3 RATIO; PROTHROMBIN TIME - PATIENT 26.3 SEC (9.8-11.6)
--- NOTE | 2016-04-02 18:15 | RADRPT ---
EXAM DATE/TIME: 04/02/2016 17:30 [facility] COMPARISON: MRI BRAIN W/O CONTRAST, December 11, 2015, 15:36. CTA BRAIN W 3D RECON, December 11, 2015, 3:04. CT B RAIN W/O CONTRAST, December 15, 2015, 13:32. INDICATIONS : Unwitnessed fall. RADIATION DOSE: 56.77 CTDIvol (mGy) MEDICAL HISTORY : Stroke. Cardiovascular disease Hypertension.Diabetes. SURGICAL HISTORY : Cerebral aneurysm. ENCOUNTER: Initial ACUITY: 1 day PAIN SCALE: 0/10 LOCATION: cranial TECHNIQUE: Multiple contiguous axial images were obtained of the head. Using automated exposure control and adj ustment of the mA and/or kV according to patient size, radiation dose was kept as low as reasonably a chievable to obtain optimal diagnostic quality images. FINDINGS: CEREBRUM: Prominent symmetric bilateral periventricular white matter hypodensity and encephalomalacia of the po sterior occipital lobes and cerebellar hemispheres. Distribution matches that of infarct seen on prio r studies of November 2015. The ventricles are normal for age. No evidence of midline shift, mass les ion, hemorrhage or acute infarction. No extra-axial fluid collections are seen. POSTERIOR FOSSA: Metallic coils in the region of the basilar artery. The cerebellum and brainstem are intact. The 4th ventricle is midline. The cerebellopontine angle is unremarkable. EXTRACRANIAL: The visualized portion of the orbits is intact. SKULL: The calvaria is intact. No evidence of skull fracture. CONCLUSION: 1. Prominent chronic white matter hypodensity indicating chronic ischemic change. 2. Posterior occipital and cerebellar encephalomalacia matching the distribution of infarcts seen on studies of November 2015. 3. No acute intracranial findings identified. 4. 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 Franklyn Musa MD on April 02, 2016 at 18:07 Board Certified Radiologist. This report was verified electronically.
[2016-04-02] MEDS ORDERED: CEPH-460 PO (18:28)
--- NOTE | 2016-04-03 14:37 | EKG ---
Date Performed: 04/02/2016 Time Performed: 16:47:04 PTAGE: 75 years EKG: ATRIAL FIBRILLATION INCOMPLETE RIGHT BUNDLE BRANCH BLOCK SEPTAL MYOCARDIAL INFARCTION Miles red to previous tracing there has been some slight variation in the nonspecific ST T wave changes but no other significant serial change ABNORMAL ECG PREVIOUS TRACING : 02/29/2016 12.41 DOCTOR: Bernie Walker Interpretating Date/Time 04/03/2016 14:37:20
== END 2016-04-02 19:03 ==
LOC: NEPE 15:53
DX: N39.0 Urinary tract infection, site not specified (principal); E11.9 Type 2 diabetes mellitus without complications; M25.552 Pain in left hip; F03.90 Unspecified dementia, unspecified severity, without behavioral disturbance, psychotic disturbance, mood disturbance, and anxiety; I48.91 Unspecified atrial fibrillation; E78.00 Pure hypercholesterolemia, unspecified; I50.9 Heart failure, unspecified; Z86.73 Personal history of transient ischemic attack (TIA), and cerebral infarction without residual deficits; Z79.4 Long term (current) use of insulin; Z79.01 Long term (current) use of anticoagulants; W18.30XA Fall on same level, unspecified, initial encounter; Y93.9 Activity, unspecified; Y92.129 Unspecified place in nursing home as the place of occurrence of the external cause; Y99.9 Unspecified external cause status
CPT/HCPCS: 70450; 71010; 73502; 80048; 81001; 82550; 82552; 83735; 84484; 85025; 85610; 85730; 87040; 87086; 93005; 96374; 99285; J2543